=== PATIENT | female | born 1960 | race Caucasian/White ===

== ENCOUNTER 2021-07-07 21:02 | Emergency (ER) | payer OTHER ==
--- OUTSIDE RECORDS SUMMARY | 2021-07-07 21:05 | XMS REPORT | Continuity of Care Document ---
:1960 Author Organization [facility] t Address [facility] [place] [address] Care Team Providers Name Role Phone GC_SEFP_Rivera_A Attending Clinician Unavailable Aston Escobar Attending Clinician [phone] Natan Reynolds Attending Clinician Unavailable Doctor Unassigned, Name Attending Clinician Unavailable Amarilis CORDOVA Attending Clinician Unavailable Tasha FELDMAN, S Attending Clinician Anil BARBOZA Attending Clinician Unavailable Rachel AGUILAR Attending Clinician Unavailable GC_SEFP_Rivera_A Admitting Clinician Unavailable Natan Reynolds Admitting Clinician Unavailable Payers Payer Name Policy Type Policy Number Effective Date Expiration Date S shanika AETNA - CHOICE [id number] 1997 00:00:00 (POS II) AETNA CHOICE POS [id number] 2012 00:00:00 II Problems Condition Condition Condition Status Onset Resolution Last Treating Co mments Source Name Details Category Date Date Treatment Clinician Date Z12.31 - Diagnosis Active 2017-032018-03-01 M emoria ENCNTR 04-25 09:11:00 l SCREEN Z03.29 - 00:01: Brett membreno MAMMOGRAM ENCNTR 00 FOR MA SCREEN MAMMOGRAM FOR MA Active 02/23/2018 Brandie Del oRsario History of Past Illness Condition Condition Condition Status Onset Resolution Last Treating Co mments Source Name Details Category Date Date Treatment Clinician Date Encounter Problem 2017-032018-09-19 2018-09-19 Memoria for 2 11:33:44 11:33:44 l screening 05:55: [place] mammogram Encounter 16 for for malignant screening neoplasm mammogram of breast for malignant neoplasm of breast 03/03/2018 09/19/2018 [facility] Patsy Women's Allergies, Adverse Reactions, Alerts Allergy Allergy Status Severity Reaction(s) Onset Inactive Treating Comm ents Source Name Type Date Date Clinician SULFA DA Active U UNKNOWN 2017-03 [facility] REACTION, 2 [place] [facility] SULFA Drug Active Unknown-Cmnt Univ ers (SULFONA Class 7- ity of [place] 00:00: [place] ANTIBIOT 00 Medical ICS) Branch SULFA DA Active U [facility] 10-28 [place] 00:[facility]: d [facility] Social History Social Habit Start Date Stop Date Quantity Comments Source Social History 2018-03-02 2018-03-02 [facility] 05:59:00 05:59:00 Medications This patient has no known medications. Procedures This patient has no known procedures. Encounters Start End Encounter Admission Attending Care Care Encounter Source Date/Time Date/Time Type Type Clinicians Facility Department ID 2021-01-28 Emergency [facility] [id number] [facility] 2021-06-29 2021-06-29 Outpatient GC_SEFP_Riv PRIV PRIV [id number] [facility] 02:26:00 02:26:00 era_A [id number] Medica l 2021-06-19 2021-06-19 Outpatient GC_SEFP_Riv PRIV PRIV [id number] [facility] 11:44:00 11:44:00 era_A [id number] Medica l 2021-06-19 2021-06-19 Outpatient GC_SEFP_Riv PRIV PRIV [id number] [facility] 11:44:00 11:44:00 era_A [id number] Medica l 2021-03-26 2021-03-26 Outpatient GC_SEFP_Riv PRIV PRIV [id number] [facility] 10:37:00 10:37:00 era_A [id number] Medica l 2021-03-21 2021-03-21 Outpatient GC_SEFP_Riv PRIV PRIV 109 [id number] [facility] 10:56:00 10:56:00 era_A [id number] Medica l 2021-03-21 2021-03-21 Outpatient [place] PRIV PRIV [id number] 00:00:00 00:00:00 , Aston Suero [id number] 2021-03-20 2021-03-20 Outpatient GC_SEFP_Riv PRIV PRIV [id number] [facility] 11:47:00 11:47:00 era_A [id number] Medica l 2020-09-20 2020-09-22 Inpatient SUSIE AshleyMN [facility] [id number] [facility] 12:32:00 17:27:00 Rodrigo 0624 [facility] 2020-08-12 2020-08-12 Outpatient GC_SEFP_Riv PRIV PRIV [id number] [facility] 03:47:00 03:47:00 era_A [id number] Medica l 2020-08-07 2020-08-07 Outpatient GC_SEFP_Riv PRIV PRIV [id number] [facility] 12:57:00 12:57:00 era_A [id number] Medica l 2020-08-06 2020-08-06 Outpatient GC_SEFP_Riv PRIV PRIV [id number] [facility] 05:18:00 05:18:00 era_A [id number] Medica l 2020-08-05 2020-08-05 Outpatient PRIV PRIV [id number] [facility] 01:09:00 01:09:00 [id number] Medica l 2020-08-02 2020-08-02 Outpatient GC_SEFP_Riv PRIV PRIV [id number] [facility] 08:08:00 08:08:00 era_A [id number] Medica l 2020-04-19 2020-04-19 Orders Doctor IZAGUIRRE [id number] 00:00:00 00:00:00 Only Unassigned, NINO 350.1.13.10 [place] [facility] [id number] [id number] 2020-04-11 2020-04-11 Outpatient Nghia CORDOVA [facility] [id number] [facility] 13:45:00 13:45:[id number] [facility] 2020-04-11 2020-04-11 Outpatient R CORDOVA [facility] [id number] Univers 13:45:00 13:45:[address] [facility] 2020-04-11 2020-04-11 [facility] [id number] 13:14:01 13:29:01 Visit [facility] 350.1.13.10 Surgical 4.2.7.2.686 Specialti [id number] es 198 [place] 2020-04-06 2020-04-06 Outpatient R TAMRA [facility] [id number] Univers 12:00:00 12:00:[address] [facility] [id number] [facility] 2020-04-06 2020-04-06 [facility] [id number] Univers 12:00:00 12:00:00 [facility] 2020-04-02 2020-04-02 Outpatient R [facility] [id number] Univers 09:15:00 09:15:[id number] [facility] 2020-04-02 2020-04-02 [facility] [id number] Univers 09:15:00 09:15:00 [facility] 2020-03-27 2020-03-27 Outpatient R [facility] [id number] Univers 11:45:00 11:45:[id number] [facility] 2020-03-27 2020-03-27 [facility] [id number] [facility] 11:45[facility]:45[facility] 2020-03-14 2020-03-14 [facility] [id number] Univers 15:45:00 15:45:[id number] [facility] 2020-03-14 2020-03-14 [facility] [id number] Univers 15:45:00 15:45:[address] [facility] 2020-03-02 2020-03-02 [facility] [id number] Univers 10:45:00 10:45:00 OCHOA isadoramackenzie [facility] 2018-03-01 2018-03-02 Outpt Diag nullFlavo [facility] [id number] Memoria 13:08:00 05:59:00 Services r Outpatient 00 l Eduarda - Brett n Patsy Women's Results Test Description Test Time Test Comments Results Result Comments Source GLUBED 2020-09-22 15:31:00 Test Item Value Reference Range Interpretation Comme nts GLUBED (test code = GLUBED) 97 mg/dL 70-110 N [id number] 15:00:00 Test Item Value Reference Range Interpretation Comments GLUBED (test code = GLUBED) 112 mg/dL 70-110 H [id number] 14:57:00 Test Item Value Reference Range Interpretation Comments GLUBED (test code = GLUBED) 93 mg/dL 70-110 N [id number] 11:30:00 Test Item Value Reference Range Interpretation Comments GLUBED (test code = GLUBED) 87 mg/dL 70-110 N [id number] 07:09:00 Test Item Value Reference Range Interpretation Comments GLUBED (test code = GLUBED) 86 mg/dL 70-110 N UR MICROALBUMIN/CREAT [id number] 05:28:00 Test Item Value Reference Range Interpretation Comments UR CREATININE RESULT (test code 144.07 MG/DL 30-125 H = CREATU) UR MICROALBUMIN QUANT (test code 13.2 mg/L 0-20 N = MICALB) UR MICROALB/CREAT RATIO (test 9.2 mg/g cre <30.0 code = MICALB:CRE) [id number] 14:52:00 Test Item Value Reference Range Interpretation Comments GLUBED (test code = GLUBED) 102 mg/dL 70-110 N [id number] 12:21:00 Test Item Value Reference Range Interpretation Comments GLUBED (test code = GLUBED) 116 mg/dL 70-110 H - US RETRO [id number] 10:05:00 [facility] 1960 Sex: F FAX: Marsha Sullivan MD [phone] [place]: St: [facility] FAX: Aston Guerra [phone] FAX: Flip Johnson MD [phone] FAX: Rodrigo Nuno MD [phone] Name: PAWAN REYES [facility] : 1960 Age/S: 59/F [address] [facility] Unit #: [id number] Loc: [place]: [place] [address] Acct: [id number] Dis Date: Status: ADM IN PHONE #: [phone] Exam Date: 09/21/2020 0900 FAX #: [phone] Meme son: BLOSSOM EXAMS: CPT CODE: [id number] US RETRO LTD [id number]: - US RETRO LTD History: Acute kidney injury Comparison: CT abdomen pelvis from September 20, 2020.. B-mode/Allen scale imaging with color Doppler perfusion imaging and spectral analysis was performed. The right kidney measures 10.7 x 5 x 5.4 cm. Parenchymal thickness found 1.2 cm. No evidence of cyst, shadowing stones or obstruction. Cortical echogenicity pattern maintained. Perfusion pattern appropriate. The left kidney is 11.1 x 5.2 x 5.2 cm also with uniform perfusion on Doppler and uniform parenchymal thickness. No evidence of obstruction. Small parapelvic cyst or dilated lower pole calyx up to 1.9 cm in diameter. The bladder with a volume at 87 mL. Wall thickness upper normal. Left ureteral jet effect seen on color Doppler. The right ureteral jet not identified. No ascites. Impression: No acute abnormality. Uniformperfusion and cortical pattern for the kidneys. Small simple 1.9 cm left lower pole parapelvic cyst or dilated calyceal segment/diverticulum. Location: U 19 Electronically Signed by Zen Farooq MD on 09/21/2020 at 1005 Reported and signed by: Zen Farooq MD CC: Marsha Ramirez MD; Aston Escobar MD; Flip Ferreira MD; Rodrigo Reynolds MD Technologist: ZULEIKA THIBODEAUX Trnscrd Date/Time/By: 09/21/2020 (1005) : By: [email or web address] PAGE 1 Signed Report FAX: Marsha Sullivan MD [phone] [place]: St: ADM FAX: Aston Olvera [phone] FAX: Flip Johnson AMD [phone] FAX: Rodrigo Nuno MD [phone] Name: PAWAN REYES [facility] : 1960 Age/S: 59/F [address] [facility] Unit[facility] [id number] Loc: [place], [place]: [place] [address] Acct: [id number] Dis Date: Status: ADM IN PHONE #: [phone] Exam Date: 09/21/2020 0900 FAX #: [phone] Reason: BLOSSOM EXAMS: CPT CODE: [id number] [facility] [address] <Continued> Orig Print D/T: S: 09/21/2020 (1008) PAGE 2 Signed ReportGLUBED 2020-09-21 08:27:00 Test Item Value Reference Range Interpretation Comments GLUBED (test code = GLUBED) 101 mg/dL 70-110 N COMPREHENSIVE METABOLIC [id number] 07:31:00 Test Item Value Reference Range Interpretation Comments SODIUM (test code = NA) 149 mmol/l 134.0-147.0 H POTASSIUM (test code = K) 3.4 mmol/L 3.6-5.2 L CHLORIDE (test code = CL) 111 mmol/l 98.0-107.0 H CARBON DIOXIDE (test code = CO2) 26.0 mmol/l 21.0-33.0 N ANION GAP (test code = GAP) 15.4 0-20 N GLUCOSE (test code = GLU) 88 mg/dl 70.0-110.0 N BLOOD UREA NITROGEN (test code = 31 mg/dl 7.0-18.0 H BUN) CREATININE (test code = CREAT) 1.14 mg/dL 0.60-1.30 N GFR NON BLACK (test code = 51 mL/min 80-90 L GFRNONBLACK) GFR BLACK (test code = GFRBLACK) 62 mL/min 97-109 L TOTAL PROTEIN (test code = PROT) 6.9 gm/dL 6.4-8.2 N ALBUMIN (test code = ALB) 3.4 gm/dl 3.2-4.7 N CALCIUM (test code = CA) 7.6 mg/dl 8.0-10.5 L BILIRUBIN TOTAL (test code = 0.9 mg/dl 0.0-1.0 N BILT) SGOT/AST (test code = AST) 54 Units/L 15-37 H SGPT/ALT (test code = ALT) 91 Units/L 12.0-78.0 H ALKALINE PHOSPHATASE TOTAL (test 81 Units/L 50.0-136.0 N code = ALKP) [id number] 07:31:00 Test Item Value Reference Range Interpretation Comments LIPASE (test code = LIP) 635 Units/L 65.0-230.0 H CBC W/AUTO [id number] 07:14:00 Test Item Value Reference Range Interpretation Comments WHITE BLOOD CELL (test code = 8.9 K/mm3 4.5-11.0 N WBC) RED BLOOD CELL (test code = 3.77 M/mm3 3.80-5.20 L RBC) HEMOGLOBIN (test code = HGB) 11.5 gm/dL 12.0-16.0 L HEMATOCRIT (test code = HCT) 36.4 % 36.0-48.0 N MEAN CELL VOLUME (test code = 96.6 UM3 82.0-99.0 MCV) MEAN CELL HGB (test code = MCH) 30.5 UUG 25.5-32.5 N MEAN CELL HGB CONCETRATION 31.6 gm/dL 29.0-35.5 N (test code = MCHC) RED CELL DISTRIBUTION WIDTH 13.3 % 11.5-15.0 N (test code = RDW) RED CELL DISTRIBUTION WIDTH SD 47.2 fL 34.8-50.2 N (test code = RDW-SD) PLATELET COUNT (test code = 248 K/mm3 150-400 N PLT) MEAN PLATELET VOLUME (test code 9.6 fl 7.4-10.4 N = MPV) NEUTROPHIL % (test code = NT%) 62.8 % 49.0-76.0 N IMMATURE GRANULOCYTE % (test 0.3 % 0.0-0.4 N code = IG%) LYMPHOCYTE % (test code = LY%) 25.8 % 23.0-38.0 N MONOCYTE % (test code = MO%) 8.8 % 1.0-10.0 N EOSINOPHIL % (test code = EO%) 1.8 % 1.0-5.0 N BASOPHIL % (test code = BA%) 0.5 % 0.0-1.0 N NUCLEATED RBC % (test code = 0.0 % 0.0-0.1 N NRBC%) NEUTROPHIL # (test code = NT#) 5.6 K/mm3 2.4-6.3 N IMMATURE GRANULOCYTE # (test 0.03 x10 3/uL 0.00-0.07 N code = IG#) LYMPHOCYTE # (test code = LY#) 2.3 K/mm3 1.2-4.0 N MONOCYTE # (test code = MO#) 0.8 K/mm3 0.0-0.6 H EOSINOPHIL # (test code = EO#) 0.2 K/MM3 0.0-0.7 N BASOPHIL # (test code = BA#) 0.0 K/mm3 0.0-0.2 N NUCLEATED RBC # (test code = 0.00 X10 3uL 0.00-0.01 N NRBC#) [id number] 22:16:00 Test Item Value Reference Range Interpretation Comments GLUBED (test code = GLUBED) 101 mg/dL 70-110 N - CT ABD PELVIS W/O [id number] 10:46:00 [facility] : 1960 Sex: F FAX: Aston Olvera [phone] [place]: St: [facility] FAX: Yocasta Colon MD [phone] FAX: Flip Johnson MD [phone] Name: PAWAN REYES [facility] : 1960 Age/S: 59/F [address] [facility] Unit: [id number] Loc: E.ERS2 [place], [place]: [place] [address] Acct: [id number] Dis Date: Status: REG ER PHONE #: [phone] Exam Date: 09/20/2020 1040 FAX #: [phone] Reason: s/p gastric bypass september 08 with n/v/pain EXAMS: CPT CODE: [id number] CT ABD PELVIS W/O CONT [id number] EXAM: - CT ABD PELVIS W/O CONT HISTORY: s/p gastric bypass September 08 with n/v/pain Location code:C3 TECHNIQUE: Contrast - No IV contrast was given. Enteric contrast within the distal esophagus/gastric pouch is noted. Noncontrast phase - abdomen and pelvis including all of kidneys Reconstructions - coronal and sagittal planes Automated exposure reduction (Auto mA/Smart mA) was utilized in compliance with ACR Image Wisely with DLP of 1165 mGy-cm. COMPARISON:None FINDINGS: Statements: Lack of intravenous contrast compromises evaluation of abdominopelvic organs and vasculature. Enteric contrast within the gastric pouch is present. Thoracic: Included images of the lower chest demonstrate no abnormalities. Hepatobiliary: The liver is normal without focal lesion. 4 No biliary dilation. Pancreas: Normal. Spleen: Normal. Adrenals: Normal. Genitourinary: The kidneys are normal. There is no evidence of hydronephrosis of either kidney. There is no evidence of renal calculus. Evaluation of the bladder is limited, but no obvious bladder abnormality is present. Uterus appears surgically absent. Gastrointestinal: Surgical changes of the stomach are present. There is no surrounding inflammatorychange or fluid collection. No bowel obstruction is seen. No extraluminal contrast from the distal esophagus/fundus of the stomach is seen. Distal stomach and proximal PAGE 1 Signed Report (CONTINUED) FAX: Aston Olvera [phone] [place]: St: [facility] FAX: Yocasta Gonzalez MD [phone] FAX: Flip Johnson MD [phone] Name: PAWAN REYES [facility] : 1960Age/S: 59/ [address] [facility] Unit: [id number] Loc: E.ERS2 [place], [place]: [place] [address] Acct: [id number] Dis Date: Status: REG ER PHONE #: [phone] Exam Date: 09/20/2020 1040 FAX #: [phone] Reason:s/p gastric bypass september 08 with n/v/pain EXAMS: CPT CODE: [id number] CT ABD PELVIS W/O CONT [id number] <Continued> small bowel loops are not opacified with contrast. The appendix is normal. Vascular: Atherosclerotic calcifications are seen within the aorta and branch vessels. Lymphatics: No enlarged lymph nodes by CT size criteria. Bones/SoftTissues: Remote 10% compression fracture at T11-12 is present. 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 There is no acute osseous abnormality. No ventral hernias. Peritoneum/Other: No extraluminal air. No extraluminal fluid. IMPRESSION: 1. Surgical changes of the stomach are seen with no extraluminal contrast, surrounding inflammatory change, drainable collection, or bowel obstruction. 2. Other chronic changes as above. at 1046 Reported and signed by: Ricardo Anglin M.D. CC: Aston Escobar MD; Yocasta Gonzalez MD; Flip Ferreira MD Technologist: DEZ CARLISLE Trnscrd Dt/Tm: 09/20/2020 (2306) [email or web address] Orig Print D/T: S: 09/20/2020 (1966 PAGE 2 Signed ReportURINALYSIS [id number] 10:13:00 Test Item Value Reference Range Interpretation Comments UA COLOR (test code = YELLOW COLU) UA APPEARANCE (test HAZY code = APPU) UA GLUCOSE DIPSTICK NORMAL mg/dl NORMAL (test code = DGLUU) UA BILIRUBIN DIPSTICK 1 mg/dL mg/dL NEGATIVE A (test code = BILU) UA KETONE DIPSTICK 50 mg/dl mg/dl NEGATIVE A (test code = KETU) UA SPECIFIC GRAVITY 1.025 1.000-1.030 (test code = SGU) UA BLOOD DIPSTICK 10 Emerson/micL NEGATIVE A (test code = EMANI) Emerson/micL UA PH DIPSTICK (test 5.0 5.0-9.0 code = GENA) UA PROTEIN DIPSTICK 100 mg/dl NEGATIVE A (test code = PROU) UA UROBILINIOGEN NORMAL mg/dl NORMAL DIPSTICK (test code = URO) UA NITRITE DIPSTICK NEGATIVE NEGATIVE (test code = ADRIÁN) UA LEUKOCYTE ESTERASE 25 Breanna/micL NEGATIVE A DIPSTICK (test code = Breanna/micL LEUU) UA WBC (test code = 4-9 WBC/HPF NONE A WBCU) UA RBC (test code = 1-3 RBC/HPF 0-3 RBCU) UA EPITHELIAL CELLS 2-5 EPI/HPF 0-3 A (test code = EPIU) UA BACTERIA (test FEW NONE code = BACU) UA CASTS OTHER (test WBC /LPF See_Comment 0-1/LPF [Automated code = CASTU) message] The system which generated this result transmit allan reference range : 0-1/LPF. The reference range was not used to interpret this result as normal/abnormal . UA COARSE GRANULAR 0-1 /LPF NEGATIVE CAST (test code = CGU) Specimen comments: Clean CatchURINALYSIS [id number] 10:11:00 Test Item Value Reference Range Interpretation Comments UA COLOR (test code = YELLOW COLU) UA APPEARANCE (test code HAZY = APPU) UA GLUCOSE DIPSTICK (test NORMAL mg/dl NORMAL code = DGLUU) UA BILIRUBIN DIPSTICK 1 mg/dL mg/dL NEGATIVE A (test code = BILU) UA KETONE DIPSTICK (test 50 mg/dl mg/dl NEGATIVE A code = KETU) UA SPECIFIC GRAVITY (test 1.025 1.000-1.030 code = SGU) UA BLOOD DIPSTICK (test 10 Emerson/micL Emerson/micL NEGATIVE A code = EMANI) UA PH DIPSTICK (test code 5.0 5.0-9.0 = GENA) UA PROTEIN DIPSTICK (test 100 mg/dl NEGATIVE A code = PROU) UA UROBILINIOGEN DIPSTICK NORMAL mg/dl NORMAL (test code = URO) UA NITRITE DIPSTICK (test NEGATIVE NEGATIVE code = ADRIÁN) UA LEUKOCYTE ESTERASE 25 Breanna/micL Breanna/micL NEGATIVE A DIPSTICK (test code = LEUU) UA WBC (test code = WBCU) WBC/HPF NONE UA RBC (test code = RBCU) RBC/HPF 0-3 UA EPITHELIAL CELLS (test EPI/HPF 0-3 code = EPIU) UA BACTERIA (test code = NONE BACU) Specimen comments: Clean [id number] 10:11:00 Test Item Value Reference Range Interpretation Comments TROPONIN-I (test <0.02 NG/ML 0.00-0.06 N REFERENCE R INOCENCIO code = TROPI) TROPONIN I HEA LTHY INDIVIDUALS: < 0.06 ng/mL R/O ISCHE TROY: 0.07 - 0.60 ng/ mL CUT-OFF RANGE F OR AMI: 0.60 - 1.5 ng/m L BASIC METABOLIC [id number] 10:11:00 Test Item Value Reference Range Interpretation Comments SODIUM (test code = NA) 144 mmol/l 134.0-147.0 N POTASSIUM (test code = K) 3.3 mmol/L 3.6-5.2 L CHLORIDE (test code = CL) 104 mmol/l 98.0-107.0 N CARBON DIOXIDE (test code = CO2) 23.3 mmol/l 21.0-33.0 N ANION GAP (test code = GAP) 20.0 0-20 N GLUCOSE (test code = GLU) 131 mg/dl 70.0-110.0 H BLOOD UREA NITROGEN (test code = 50 mg/dl 7.0-18.0 H BUN) CREATININE (test code = CREAT) 2.31 mg/dL 0.60-1.30 H GFR NON BLACK (test code = 23 mL/min 80-90 L GFRNONBLACK) GFR BLACK (test code = GFRBLACK) 28 mL/min 97-109 L CALCIUM (test code = CA) 9.0 mg/dl 8.0-10.5 N HEPATIC FUNCTION PANEL [id number] 10:11:00 Test Item Value Reference Range Interpretation Comments TOTAL PROTEIN (test code = PROT) 8.5 gm/dL 6.4-8.2 H ALBUMIN (test code = ALB) 4.3 gm/dl 3.2-4.7 N BILIRUBIN TOTAL (test code = 0.8 mg/dl 0.0-1.0 N BILT) BILIRUBIN DIRECT (test code = 0.2 mg/dl 0.0-0.3 N BILD) SGOT/AST (test code = AST) 55 Units/L 15-37 H SGPT/ALT (test code = ALT) 99 Units/L 12.0-78.0 H ALKALINE PHOSPHATASE TOTAL (test 101 Units/L 50.0-136.0 N code = ALKP) [id number] 10:11:00 Test Item Value Reference Range Interpretation Comments LIPASE (test code = LIP) 621 Units/L 65.0-230.0 H CBC W/AUTO [id number] 09:44:00 Test Item Value Reference Range Interpretation Comments WHITE BLOOD CELL (test code = 11.8 K/mm3 4.5-11.0 H WBC) RED BLOOD CELL (test code = 4.40 M/mm3 3.80-5.20 N RBC) HEMOGLOBIN (test code = HGB) 13.5 gm/dL 12.0-16.0 N HEMATOCRIT (test code = HCT) 40.9 % 36.0-48.0 N MEAN CELL VOLUME (test code = 93.0 UM3 82.0-99.0 N MCV) MEAN CELL HGB (test code = MCH) 30.7 UUG 25.5-32.5 N MEAN CELL HGB CONCETRATION 33.0 gm/dL 29.0-35.5 N (test code = MCHC) RED CELL DISTRIBUTION WIDTH 13.2 % 11.5-15.0 N (test code = RDW) RED CELL DISTRIBUTION WIDTH SD 45.0 fL 34.8-50.2 N (test code = RDW-SD) PLATELET COUNT (test code = 333 K/mm3 150-400 N PLT) MEAN PLATELET VOLUME (test code 9.3 fl 7.4-10.4 N = MPV) NEUTROPHIL % (test code = NT%) 79.4 % 49.0-76.0 H IMMATURE GRANULOCYTE % (test 0.4 % 0.0-0.4 N code = IG%) LYMPHOCYTE % (test code = LY%) 13.7 % 23.0-38.0 L MONOCYTE % (test code = MO%) 5.2 % 1.0-10.0 N EOSINOPHIL % (test code = EO%) 0.6 % 1.0-5.0 L BASOPHIL % (test code = BA%) 0.7 % 0.0-1.0 N NUCLEATED RBC % (test code = 0.0 % 0.0-0.1 N NRBC%) NEUTROPHIL # (test code = NT#) 9.4 K/mm3 2.4-6.3 H IMMATURE GRANULOCYTE # (test 0.05 x10 3/uL 0.00-0.07 N code = IG#) LYMPHOCYTE # (test code = LY#) 1.6 K/mm3 1.2-4.0 N MONOCYTE # (test code = MO#) 0.6 K/mm3 0.0-0.6 N EOSINOPHIL # (test code = EO#) 0.1 K/MM3 0.0-0.7 N BASOPHIL # (test code = BA#) 0.1 K/mm3 0.0-0.2 N NUCLEATED RBC # (test code = 0.00 X10 3uL 0.00-0.01 N NRBC#)
--- NOTE | 2021-07-07 22:29 | RAD REPORT ---
EXAM DESCRIPTION: CT - Head Brain Wo Cont - 07/07/2021 10:20 pm CLINICAL HISTORY: PAIN COMPARISON: No comparisons TECHNIQUE: All CT scans are performed using dose optimization technique as appropriate and may inclu de automated exposure control or mA/KV adjustment according to patient size. FINDINGS: No intracranial hemorrhage, hydrocephalus or extra-axial fluid collection.No areas of brai n edema or evidence of midline shift. The paranasal sinuses and mastoids are clear. The calvarium is intact. IMPRESSION: No acute intracranial abnormality.
--- NOTE | 2021-07-07 22:30 | RAD REPORT ---
EXAM DESCRIPTION: CT - C Spine Wo Con - 07/07/2021 10:20 pm CLINICAL HISTORY: PAIN COMPARISON: No comparisons TECHNIQUE: CT Scan was obtained of the cervical spine without contrast. Reformats were provided in t he sagittal and coronal plane. FINDINGS: No acute fracture of the cervical spine. Trace anterolisthesis of C2 on C3 is likely chron ic. No traumatic malalignment. No prevertebral edema. No significant focal degenerative changes. No s uspicious thyroid nodules or lymphadenopathy. The lung apices are clear. Status post C5 through C7 AC DF. Moderate adjacent level degenerative changes are present at C7-T1. There is evidence of neural fo raminal narrowing. IMPRESSION: No fracture or traumatic malalignment of the cervical spine.
--- NOTE | 2021-07-07 22:45 | EDPHYS ---
Physician Documentation [facility] Name: Jia Ellis Age: 60 yrs Sex: Female : 1960 Arrival Date: 07/07/2021 Time: 21:06 Bed 3 Private MD: ED Physician Reddy Loaiza HPI: 07/07 22:19 This 60 yrs old Female presents to ER via Wheelchair with complaints of Fall Injury. pm1 22:19 Details of fall: The patient fell from an upright position, while standing. pm1 22:19 Onset: The symptoms/episode began/occurred today. Associated injuries: The patient pm1 sustained neck injury, right scapular area. Severity of symptoms:. The patient has not experienced similar symptoms in the past. The patient has not recently seen a physician. Patient tripped on a heat lamp while feeding her animals and she feel backwards and hit her right shoulder on a water through with abrasion present to scapular area. Negative for headache, Head injury, LOC. Positive for neck pain and right trapezius pain. . Historical: - Allergies: 21:13 Sulfa (Sulfonamide Antibiotics); lp1 - Home Meds: 22:47 Unable to obtain [Active]; lp1 - PMHx: 22:47 Depressive disorder; Hypercholesterolemia; lp1 - PSHx: 22:47 Partial hysterectomy; Cholecystectomy; carpel tunnel; neck sx; achilles sx; gastric lp1 bypass; - Immunization history:: Adult Immunizations unknown. - Social history:: Smoking status: Patient denies any tobacco usage or history of. - Immunization history: Last tetanus immunization: unknown. ROS: 22:19 Constitutional: Negative for fever, chills, and weight loss, Cardiovascular: Negative pm1 for chest pain, palpitations, and edema. 22:19 Respiratory: Negative for shortness of breath, cough, wheezing, and pleuritic chest pain, Abdomen/GI: Negative for abdominal pain, nausea, vomiting, diarrhea, and constipation, Back: Negative for injury and pain. 22:19 Neuro: Negative for headache, weakness, numbness, tingling, and seizure. 22:19 Neck: Positive for bony tenderness, of the right trapezius. 22:19 MS/extremity: Positive for abrasion, pain, of the right scapular area. 22:19 Skin: Positive for abrasion(s), of the right scapular area. 22:19 All other systems are negative. Exam: 22:19 Constitutional: This is a well developed, well nourished patient who is awake, alert, pm1 and in no acute distress. Head/Face: Normocephalic, atraumatic. 22:19 Neck: External neck: tenderness, that is moderate, of the right trapezius, C-spine: C-collar placed in ED, vertebral tenderness, that is mild, appreciated at C5, C6 and C7. 22:19 Cardiovascular: Exam negative for acute changes, Rate: normal, Rhythm: regular, Pulses: no pulse deficits are appreciated. 22:19 Respiratory: Exam negative for acute changes, respiratory distress, shortness of breath, Breath sounds: are clear throughout. 22:19 Back: pain, that is mild, of the right scapular area. 22:19 Musculoskeletal/extremity: Exam is negative for Extremities: noted in the right shoulder and right arm: There is no evidence of decreased ROM, Patient is able to move her shoulder and arm full range of motion. 22:19 Skin: injury, abrasion(s), small abrasion noted, of the right scapular area. 22:19 Neuro: Exam negative for acute changes, Orientation: is normal, Mentation: is normal, Motor: is normal, moves all fours. Vital Signs: 21:13 BP 172 / 64; Pulse 64; Resp 18; Temp 97.4(TE); Pulse Ox 97% on R/A; Weight 92.99 kg lp1 (R); Height 5 ft. 7 in. (170.18 cm); 22:30 BP 137 / 69; Pulse 57; Resp 20 S; Pulse Ox 97% on R/A; as6 21:13 Body Mass Index 32.11 (92.99 kg, 170.18 cm) lp1 [place] Coma Score: 21:23 Eye Response: spontaneous(4). Verbal Response: oriented(5). Motor Response: obeys as6 commands(6). Total: 15. 22:30 Eye Response: spontaneous(4). Verbal Response: oriented(5). Motor Response: obeys as6 commands(6). Total: 15. Trauma Score (Adult): 21:23 Eye Response: spontaneous(1); Verbal Response: oriented(1); Motor Response: obeys as6 commands(2); Systolic BP: > 89 mm Hg(4); Respiratory Rate: 10 to 29 per min(4); [place] Score: 15; Trauma Score: 12 22:30 Eye Response: spontaneous(1); Verbal Response: oriented(1); Motor Response: obeys as6 commands(2); Systolic BP: > 89 mm Hg(4); Respiratory Rate: 10 to 29 per min(4); [place] Score: 15; Trauma Score: 12 MDM: 21:39 Patient medically screened. pm1 22:42 Data reviewed: vital signs. Data interpreted: Pulse oximetry: on room air is 97 %. pm1 Interpretation: normal. 22:43 Counseling: I had a detailed discussion with the patient and/or guardian regarding: the pm1 historical points, exam findings, and any diagnostic results supporting the discharge/admit diagnosis, radiology results, the need for outpatient follow up, to return to the emergency department if symptoms worsen or persist or if there are any questions or concerns that arise at home. 22:56 ED course: Patient has hydrocodone at home for pain management. pm1 07/07 21:43 Order name: Shoulder Right (2 View) XRAY pm1 07/07 22:01 Order name: C Spine Wo Con; Complete Time: 22:41 EDMS 07/07 22:02 Order name: Head Brain Wo Cont; Complete Time: 22:41 EDMS Administered Medications: 23:02 Drug: [place] (HYDROcodone-acetaminophen) 10 mg-325 mg 1 tabs Route: PO; as6 23:11 Follow up: Response: No adverse reaction; RASS: Alert and Calm (0) as6 23:02 Drug: Flexeril (cyclobenzaprine) 10 mg Route: PO; as6 23:10 Follow up: Response: No adverse reaction as6 Disposition: 07/08 03:36 Co-signature as Attending Physician, Reddy Loaiza MD. [email or web address] Disposition Summary: 07/07/21 22:44 Discharge Ordered Location: Home pm1 Problem: new pm1 Symptoms: have improved pm1 Condition: Stable pm1 Diagnosis - Contusion of right shoulder pm1 - Strain of muscle, fascia and tendon at neck level pm1 - Fall on same level, unspecified pm1 Followup: pm1 - With: Emergency Department - When: As needed - Reason: Worsening of condition Followup: pm1 - With: Private Physician - When: 2 - 3 days - Reason: Recheck today's complaints, Continuance of care, Re-evaluation by your physician Discharge Instructions: - Discharge Summary Sheet pm1 - Contusion pm1 - Muscle Strain pm1 Forms: - Medication Reconciliation Form pm1 - Thank You Letter pm1 - Antibiotic Education pm1 - Prescription Opioid Use pm1 Prescriptions: - Cyclobenzaprine 10 mg Oral Tablet - take 1 tablet by ORAL route every 8 hours As needed; 30 tablet; Refills: 0, pm1 Product Selection Permitted Signatures: Dispatcher [employer] EDMS Guerda Sweeney RN RN lp1 Ortega Loyd, ROCKET ENGINE MECHANIC ROCKET ENGINE MECHANIC pm1 Reddy Loaiza MD MD mh7 Lionel Hutson RN RN as6 Corrections: (The following items were deleted from the chart) 07/07 22:02 21:44 Head C Spine MPR Wo Con+CT.RAD.BRZ ordered. EDMS EDMS
--- NOTE | 2021-07-07 22:45 | ER ---
Nurse's Notes [facility] Name: Jia Ellis Age: 60 yrs Sex: Female : 1960 Arrival Date: 07/07/2021 Time: 21:06 Bed 3 Private MD: Diagnosis: Contusion of right shoulder;Strain of muscle, fascia and tendon at neck level;Fall on same level, unspecified Presentation: 07/07 21:12 Chief complaint: Patient states: Patient was outside feeding duck when she tripped over lp1 heat lamp, hit right shoulder on water trough, reports neck "whiplash"; Pain to neck, upper back, bilateral posterior shoulders. Care prior to arrival: None. Mechanism of Injury: Fall from standing position. 21:12 Acuity: LUISITO 2 lp1 21:12 Method Of Arrival: Wheelchair lp1 21:24 Coronavirus screen: At this time, the client does not indicate any symptoms associated as6 with coronavirus-19. Ebola Screen: No symptoms or risks identified at this time. Initial Sepsis Screen: Does the patient meet any 2 criteria? No. Patient's initial sepsis screen is negative. Does the patient have a suspected source of infection? No. Patient's initial sepsis screen is negative. Risk Assessment: Do you want to hurt yourself or someone else? Patient reports no desire to harm self or others. Onset of symptoms was July 07, 2021. 23:10 Trauma event details: Injury occurred in the [facility], Injury occurred: at as6 home. Trauma Activation: Not Applicable Physician: ED Physician; Name: ; Notified At: ; Arrived At: Physician: General Surgeon; Name: ; Notified At: ; Arrived At: Physician: Radiology; Name: ; Notified At: ; Arrived At: Physician: Respiratory; Name: ; Notified At: ; Arrived At: Physician: Lab; Name: ; Notified At: ; Arrived At: Historical: - Allergies: 21:13 Sulfa (Sulfonamide Antibiotics); lp1 - Home Meds: 22:47 Unable to obtain [Active]; lp1 - PMHx: 22:47 Depressive disorder; Hypercholesterolemia; lp1 - PSHx: 22:47 Partial hysterectomy; Cholecystectomy; carpel tunnel; neck sx; achilles sx; gastric lp1 bypass; - Immunization history:: Adult Immunizations unknown. - Social history:: Smoking status: Patient denies any tobacco usage or history of. - Immunization history: Last tetanus immunization: unknown. Screenin:23 Abuse screen: Denies threats or abuse. Denies injuries from another. Nutritional as6 screening: No deficits noted. Tuberculosis screening: No symptoms or risk factors identified. Fall Risk Fall in past 12 months (25 points). Total Baker Fall Scale indicates Low Risk Score (25-44 pts). Fall prevention measures have been instituted. Side Rails Up X 2 Family Present and informed to notify staff if they need to leave bedside As available Patient and Family Educated on Fall Prevention Program and strategies. Primary Survey: 21:22 NO uncontrolled hemorrhage observed. A: The patient is alert. Airway: patent. as6 Breathing/Chest: Respiratory pattern: regular, Respiratory effort: spontaneous. Circulation: Skin color: pink, Skin temperature: warm. Disability Alert. Exposure/Environment: All clothing and personal items were removed. Forensic evidence collection is not deemed to be indicated at this time. Items placed in patient belonging bag. A warming method has been applied: A warm blanket has been provided to the patient. Reassessment Airway Airway Patent Breathing/Chest Respiratory pattern Respiratory effort Spontaneous Circulation Color [place] Temperature Warm Disability Alert. Secondary Survey: 21:23 Musculoskeletal: Reports pain in back and thoracic area and right scapular area and as6 left scapular area and right trapezius and left trapezius. Assessment: 21:21 General: Appears in no apparent distress. uncomfortable, Behavior is calm, cooperative. as6 Pain: Complains of pain in left trapezius, right trapezius, left scapular area, right scapular area and thoracic area Quality of pain is described as numb. Neuro: Level of Consciousness is awake, alert, obeys commands, Oriented to person, place, time, situation. Cardiovascular: Capillary refill < 3 seconds Patient's skin is warm and dry. Respiratory: Airway is patent Trachea midline Respiratory effort is even, unlabored, Respiratory pattern is regular, symmetrical. Vital Signs: 21:13 BP 172 / 64; Pulse 64; Resp 18; Temp 97.4(TE); Pulse Ox 97% on R/A; Weight 92.99 kg lp1 (R); Height 5 ft. 7 in. (170.18 cm); 22:30 BP 137 / 69; Pulse 57; Resp 20 S; Pulse Ox 97% on R/A; as6 21:13 Body Mass Index 32.11 (92.99 kg, 170.18 cm) lp1 [place] Coma Score: 21:23 Eye Response: spontaneous(4). Verbal Response: oriented(5). Motor Response: obeys as6 commands(6). Total: 15. 22:30 Eye Response: spontaneous(4). Verbal Response: oriented(5). Motor Response: obeys as6 commands(6). Total: 15. Trauma Score (Adult): 21:23 Eye Response: spontaneous(1); Verbal Response: oriented(1); Motor Response: obeys as6 commands(2); Systolic BP: > 89 mm Hg(4); Respiratory Rate: 10 to 29 per min(4); [place] Score: 15; Trauma Score: 12 22:30 Eye Response: spontaneous(1); Verbal Response: oriented(1); Motor Response: obeys as6 commands(2); Systolic BP: > 89 mm Hg(4); Respiratory Rate: 10 to 29 per min(4); [place] Score: 15; Trauma Score: 12 ED Course: 21:06 Patient arrived in ED. lp1 21:13 Triage completed. lp1 21:14 Arm band placed on. lp1 21:15 Lionel Hutson RN is Primary Nurse. as6 21:24 Patient maintains SpO2 saturation greater than 95% on room air. Thermoregulation: warm as6 blanket given to patient. 21:25 Ortega Loyd NP is PHCP. pm1 21:25 Reddy Loaiaz MD is Attending Physician. pm1 22:00 Placed in gown. Bed in low position. Call light in reach. Side rails up X2. Adult w/ as6 patient. Pulse ox on. NIBP on. 22:21 C Spine Wo Con In Process Unspecified. EDMS 22:21 Head Brain Wo Cont In Process Unspecified. EDMS 22:32 Shoulder Right (2 View) XRAY In Process Unspecified. EDMS 23:09 No provider procedures requiring assistance completed. Patient did not have IV access as6 during this emergency room visit. Administered Medications: 23:02 Drug: [place] (HYDROcodone-acetaminophen) 10 mg-325 mg 1 tabs Route: PO; as6 23:11 Follow up: Response: No adverse reaction; RASS: Alert and Calm (0) as6 23:02 Drug: Flexeril (cyclobenzaprine) 10 mg Route: PO; as6 23:10 Follow up: Response: No adverse reaction as6 Intake: 21:23 PO: 0ml; Total: 0ml. as6 Outcome: 22:44 Discharge ordered by . pm1 23:09 Discharged to home via wheelchair, with significant other. as6 23:09 Condition: stable 23:09 Discharge instructions given to patient, significant other, Instructed on discharge instructions, follow up and referral plans. medication usage, Demonstrated understanding of instructions, follow-up care, medications, Prescriptions given X 1. 23:10 Patient's length of stay was not longer than 2 hours. as6 23:11 Patient left the ED. as6 Signatures: Dispatcher [employer] EDGuerda Abbasi, DAVID RN lp1 Ortega Loyd NP SCHEME TECHNICIAN pm1 Lionel Hutson RN RN as6
[2021-07-07] MEDS ORDERED: HYDROCODONE/APAP 10/325 TAB ONE ×2 (22:55→22:57)
[2021-07-07] MEDS ORDERED: CYCLOBENZAPRINE 10 MG TAB ONE (23:00)
[2021-07-08 03:03] VITALS: TEMP 97.4; O2SAT 97
[2021-07-08 03:04] VITALS: BP 137/69
--- NOTE | 2021-07-08 15:51 | RAD REPORT ---
EXAM DESCRIPTION: Shoulder Right 2 View - 07/07/2021 10:30 pm CLINICAL HISTORY: 60-year-old female with pain. TECHNIQUE: Three views RIGHT shoulder were obtained in AP, internal/external rotation and transcapul ar projections. COMPARISON: None. FINDINGS: There is no fracture or dislocation. Degenerative change of the acromioclavicular and richie ohumeral joint. The joint spaces are preserved. No soft tissue abnormalities are seen. Anterior cervi pia fusion hardware. IMPRESSION: No acute radiographic abnormality. Electronically signed by: Marla Castillo MD 07/07/2021 10:49 PM CDT Due to temporary technical issues with the PACS/Fluency reporting system, reports are being signed by the in house radiologist without review as a courtesy to ensure prompt reporting. The interpreting r adiologist is fully responsible for the content of the report.
== END 2021-07-07 23:11 | disposition home or self-care (01) ==
LOC: ER 21:02
DX: S16.1XXA Strain of muscle, fascia and tendon at neck level, initial encounter (principal); S40.011A Contusion of right shoulder, initial encounter; W18.30XA Fall on same level, unspecified, initial encounter; E78.00 Pure hypercholesterolemia, unspecified; F32.A Depression, unspecified; Z88.2 Allergy status to sulfonamides
CPT/HCPCS: 70450; 72125; 99284

== ENCOUNTER 2021-07-15 10:24 | Emergency (ER) | payer OTHER ==
--- OUTSIDE RECORDS SUMMARY | 2021-07-15 10:28 | XMS REPORT | Continuity of Care Document ---
:[address] [facility] t Address [address] [place] [address] [address]. [address] [place] [address] Care Team Providers Name Role Phone GC_SEFP_Levon_A Attending Clinician Unavailable Pio Escobar Attending Clinician [phone] Natan Reynolds Attending Clinician Unavailable Doctor Unassigned, Name Attending Clinician Unavailable Amarilis CORDOVA Attending Clinician Unavailable Berry FELDMAN, S Attending Clinician Anil BARBOZA Attending Clinician Unavailable Rachel AGUILAR Attending Clinician Unavailable AMAIRANI_PAYTON_Levon_A Admitting Clinician Unavailable Natan Reynolds Admitting Clinician Unavailable Payers Payer Name Policy Type Policy Number Effective Date Expiration Date Amarilis voss [employer]ET[employer] - CHOICE [id number] 1997 00:00:00 (POS II) AETNA CHOICE POS [id number] 2012 00:00:00 II Problems This patient has no known problems. Allergies, Adverse Reactions, Alerts Allergy Allergy Status Severity Reaction(s) Onset Inactive Treating Comm ents Source Name Type Date Date Clinician SULFA DA Active U UNKNOWN 2017-03 [facility] RE[facility], 2-17 [facility] SULFA Drug Active Unknown-[facility]nt Univ ers (SULFONA Class 7-06 ity of M[facility] 00:00: [place] ANTIBIOT 00 [facility] I[facility]) Branch SULFA DA Active U 2007- [facility] 8- [facility] 00:[facility]: d [facility] Medications This patient has no known medications. Procedures This patient has no known procedures. Encounters Start End Encounter Admission Attending Care Care Encounter Source Date/Time Date/Time Type Type Clinicians Facility Department ID 2021-01-28 Emergency [facility] [id number] Univers 14:37:00 [facility] 2021-07-08 2021-07-08 Outpatient GC_SEFP_Riv PRIV PRIV [id number] [facility] 12:44:00 12:44:00 era_A [id number] Medica l 2021-06-29 2021-06-29 Outpatient GC_SEFP_Riv PRIV PRIV [id number] [facility] 02:26:00 02:26:00 era_A [id number] Medica l 2021-06-19 2021-06-19 Outpatient GC_SEFP_Riv PRIV PRIV [id number] [facility] 11:44:00 11:44:00 era_A [id number] Medica l 2021-06-19 2021-06-19 Outpatient GC_SEFP_Riv PRIV PRIV [id number] [facility] 11:44:00 11:44:00 era_A [id number] Medica l 2021-06-19 2021-06-19 Outpatient [facility] PRIV PRIV [id number] 00:00:00 00:00:00 , Aston Suero [id number] 2021-03-26 2021-03-26 Outpatient GC_SEFP_Riv PRIV PRIV [id number] [facility] 10:37:00 10:37:00 era_A [id number] Medica l 2021-03-21 2021-03-21 Outpatient GC_SEFP_Riv PRIV PRIV [id number] [facility] 10:56:00 10:56:00 era_A [id number] Medica l 2021-03-21 2021-03-21 Outpatient [facility] PRIV PRIV [id number] 00:00:00 00:00:00 , Aston Suero [id number] 2021-03-20 2021-03-20 Outpatient GC_SEFP_Riv PRIV PRIV [id number] [facility] 11:47:00 11:47:00 era_A [id number] Medica l 2020-09-20 2020-09-22 [id number] 12:32:00 17:27:00 Rodrigo 0624 [facility] 2020-08-12 2020-08-12 Outpatient GC_SEFP_Riv PRIV PRIV [id number] [facility] 03:47:00 03:47:00 era_A [id number] Medica l 2020-08-07 2020-08-07 Outpatient GC_SEFP_Riv PRIV PRIV [id number] [facility] 12:57:00 12:57:00 era_A [id number] Medica l 2020-08-06 2020-08-06 Outpatient GC_SEFP_Riv PRIV PRIV [id number] [facility] 05:18:00 05:18:00 era_A [id number] Medica l 2020-08-05 2020-08-05 Outpatient PRIV PRIV [id number] [facility] 01:09:00 01:09:00 [id number] Medica l 2020-08-02 2020-08-02 Outpatient GC_SEFP_Riv PRIV PRIV [id number] [facility] 08:08:00 08:08:00 era_A [id number] Medica l 2020-04-19 2020-04-19 Orders Doctor DMITRIY [id number] 00:00:00 00:00:00 Only Unassigned, PEVELY [id number] [facility] [id number] 2020-04-11 2020-04-11 Outpatient Nghia CORDOVA [facility] [id number] Univers 13:45:00 13:45:00 OCHOA [id number] [facility] 2020-04-11 2020-04-11 Outpatient Nghia CORDOVA [facility] [id number] [facility] 13:45:00 13:45:00 OCHOA [facility] 2020-04-11 2020-04-11 Office Berry [facility] [id number] 13:14:01 13:29:01 Visit [facility] [id number] Surgical 4.2.7.2.686 Specialti [id number] es 198 Elisa 2020-04-06 2020-04-06 Outpatient R TAMRA [facility] [id number] Univers 12:00:00 12:00:00 [facility] [id number] [facility] 2020-04-06 2020-04-06 Outpatient R TAMRA [facility] [id number] Univers 12:00:00 12:00:00 [facility] 2020-04-02 2020-04-02 Outpatient R [facility] [id number] Univers 09:15:00 09:15:00 [id number] [facility] 2020-04-02 2020-04-02 Outpatient R TAMRA [facility] [id number] Univers 09:15:00 09:15:00 [facility] 2020-03-27 2020-03-27 Outpatient R [facility] [id number] Univers 11:45:00 11:45:00 [id number] [facility] 2020-03-27 2020-03-27 [facility] [id number] Univers 11:45:00 11:45:00 [facility] 2020-03-14 2020-03-14 [facility] [id number] Univers 15:45:00 15:45:00 ELGIN [id number] [facility] 2020-03-14 2020-03-14 [facility] [id number] Univers 15:45:00 15:45:00 [facility] 2020-03-02 2020-03-02 Outpatient R CORDOVA [facility] [id number] Univers 10:45:00 10:45:00 OCHOA [facility] Results Test Description Test Time Test Comments Results Result Comments Source GLUBED 2020-09-22 15:31:00 Test Item Value Reference Range Interpretation Comme nts GLUBED (test code = GLUBED) 97 mg/dL 70-110 N [id number] 15:00:00 Test Item Value Reference Range Interpretation Comments GLUBED (test code = GLUBED) 112 mg/dL 70-110 H [id number] 14:57:00 Test Item Value Reference Range Interpretation Comments GLUBED (test code = GLUBED) 93 mg/dL 70-110 N [id number] 11:30:00 Test Item Value Reference Range Interpretation Comments GLUBED (test code = GLUBED) 87 mg/dL 70-110 N [id number] 07:09:00 Test Item Value Reference Range Interpretation Comments GLUBED (test code = GLUBED) 86 mg/dL 70-110 N UR MICROALBUMIN/CREAT [id number] 05:28:00 Test Item Value Reference Range Interpretation Comments UR CREATININE RESULT (test code 144.07 MG/DL 30-125 H = CREATU) UR MICROALBUMIN QUANT (test code 13.2 mg/L 0-20 N = MICALB) UR MICROALB/CREAT RATIO (test 9.2 mg/g cre <30.0 code = MICALB:CRE) [id number] 14:52:00 Test Item Value Reference Range Interpretation Comments GLUBED (test code = GLUBED) 102 mg/dL 70-110 N [id number] 12:21:00 Test Item Value Reference Range Interpretation Comments GLUBED (test code = GLUBED) 116 mg/dL 70-110 H - US RETRO [id number] 10:05:00 [facility] 1960 Sex: F FAX: Marsha Sullivan MD [phone] [place]: St: ADM FAX: Aston Guerra [phone] FAX: Flip Johnson MD [phone] FAX: oRdrigo Nuno MD [phone] Name: PAWAN REYES [facility] : 1960 Age/S: 59/F [address] [facility] #: [id number] Loc: [place], [place] Phys: [place] [address] Acct: [id number] Dis Date: Status: ADM IN PHONE #: [phone] Exam Date: 09/21/2020 0900 FAX #: [phone] Meme son: BLOSSOM EXAMS: CPT CODE: [id number] US RETRO LTD [id number]: - US RETRO LTD History: Acute kidney [...] MD Technologist: ZULEIKA THIBODEAUX Trnscrd Date/Time/By: 09/21/2020 (1001) : By: [email or web address] PAGE 1 Signed Report FAX: Marsha Sullivan MD [phone] [place]: St: ADM FAX: Aston Olvera [phone] FAX: Flip Johnson [facility] [phone] FAX: Rodrigo Nuno MD [phone] Name: PAWAN REYES [facility] : 1960 Age/S: 59/F [address] [facility] Unit#: [id number] Loc: [place], [place]: [place] [address] Acct: [id number] Dis Date: Status: ADM IN PHONE #: [phone] Exam Date: 09/21/2020 0900 FAX #: [phone] Reason: BLOSSOM EXAMS: CPT CODE: [id number] [facility] [address] <Continued> Orig Print D/T: S: 09/21/2020 (1003) PAGE 2 Signed ReportGLUBED 2020-09-21 08:27:00 Test Item Value Reference Range Interpretation Comments GLUBED (test code = GLUBED) 101 mg/dL 70-110 N COMPREHENSIVE METABOLIC [id number] 07:31:00 Test Item Value Reference Range Interpretation [...] 81 Units/L 50.0-136.0 N code = ALKP) [id number] 07:31:00 Test Item Value Reference Range Interpretation Comments LIPASE (test code = LIP) 635 Units/L 65.0-230.0 H CBC W/AUTO [id number] 07:14:00 Test Item Value Reference Range Interpretation [...] = 0.00 X10 3uL 0.00-0.01 N NRBC#) [id number] 22:16:00 Test Item Value Reference Range Interpretation Comments GLUBED (test code = GLUBED) 101 mg/dL 70-110 N - CT ABD PELVIS W/O [id number] 10:46:00 [facility] : 1960 Sex: F FAX: Aston Olvera [phone] [place]: St: REG FAX: Yocasta Colon MD [phone] FAX: Flip Johnson MD [phone] Name: PAWAN REYES [facility] : 1960 Age/S: 59/F [address] [facility] Unit: [id number] Loc: [address] Phys: [place] [address] Acct: [id number] Dis Date: Status: REG ER PHONE #: [phone] Exam Date: 09/20/2020 1040 FAX #: [phone] Reason: s/p gastric bypass september 08 with n/v/pain EXAMS: CPT CODE: [id number] CT ABD PELVIS W/O CONT [id number] EXAM: - CT ABD PELVIS W/O CONT [...] 1 Signed Report (CONTINUED) FAX: Aston Olvera [phone] [place]: St: [facility] FAX: Yocasta Gonzalez MD [phone] FAX: Flip Johnson MD [phone] Name: PAWAN REYES [facility] : 1960Age/S: 59/F [address] [facility] Unit: [id number] Loc: [address] Phys: [place] [address] Acct: [id number] Dis Date: Status: REG ER PHONE #: [phone] Exam Date: 09/20/2020 1040 FAX #: [phone] Reason:s/p gastric bypass september 08 with n/v/pain EXAMS: CPT CODE: [id number] CT ABD PELVIS W/O CONT 23570 <Continued> small bowel loops are not opacified [...] MD Technologist: DEZ CARLISLE Trnscrd Dt/Tm: 09/20/2020 (6716) [email or web address] Orig Print D/T: S: 09/20/2020 (1649 PAGE 2 Signed ReportURINALYSIS [id number] 10:13:00 Test Item Value Reference Range Interpretation [...] code = CGU) Specimen comments: Clean CatchURINALYSIS [id number] 10:11:00 Test Item Value Reference Range Interpretation [...] code = NONE BACU) Specimen comments: Clean [id number] 10:11:00 Test Item Value Reference Range Interpretation Comments TROPONIN-I (test <0.02 NG/ML 0.00-0.06 N REFERENCE R INOCENCIO code = TROPI) TROPONIN I HEA LTHY INDIVIDUALS: < 0.06 ng/mL R/O ISCHE TROY: 0.07 - 0.60 ng/ mL CUT-OFF RANGE F OR AMI: 0.60 - 1.5 ng/m L BASIC METABOLIC [id number] 10:11:00 Test Item Value Reference Range Interpretation [...] 9.0 mg/dl 8.0-10.5 N HEPATIC FUNCTION PANEL [id number] 10:11:00 Test Item Value Reference Range Interpretation [...] 101 Units/L 50.0-136.0 N code = ALKP) [id number] 10:11:00 Test Item Value Reference Range Interpretation Comments LIPASE (test code = LIP) 621 Units/L 65.0-230.0 H CBC W/AUTO [id number] 09:44:00 Test Item Value Reference Range Interpretation [...]
[2021-07-15] MEDS ORDERED: HYDROCODONE/APAP 10/325 TAB ONE (10:49)
--- NOTE | 2021-07-15 11:33 | RAD REPORT ---
EXAM DESCRIPTION: RAD - Finger-Thumb Right - 07/15/2021 11:19 am CLINICAL HISTORY: Finger injury FINDINGS: Comminuted fracture involves the fourth distal phalanx. 4 millimeter bony fragment lies ad jacent to mid aspect of the distal phalanx. No dislocation seen
[2021-07-15] MEDS ORDERED: LIDOCAINE 1% 20 ML MDV ONE (13:23)
[2021-07-15] MEDS ORDERED: BUPIVACAINE 0.5% PF 10 ML VIAL ONE (13:28)
[2021-07-15] MEDS ORDERED: CEFAZOLIN SODIUM 1 GM/VIAL ONE (14:32)
[2021-07-15] MEDS ORDERED: TETANUS & DIPHTHERIA TOX,ADULT 0.5 ML VIAL ONE (14:33)
--- NOTE | 2021-07-15 14:33 | EDPHYS ---
Physician Documentation [facility] Name: Jia Ellis Age: 60 yrs Sex: Female : 1960 Arrival Date: 07/15/2021 Time: 10:25 Bed 10 Private MD: ED Physician Micheal Davis HPI: 07/15 14:41 This 60 yrs old Female presents to ER via Ambulatory with complaints of Smashed Finger. ms3 14:41 The patient or guardian reports pain. The complaints affect the Right ring finger. ms3 Context: The problem was sustained at a Outside hooking tractor to equipment. Onset: The symptoms/episode began/occurred acutely, 1 hour(s) ago. Modifying factors: The symptoms are alleviated by nothing, the symptoms are aggravated by nothing. Associated signs and symptoms: The patient has no apparent associated signs or symptoms. Severity of symptoms: At their worst the symptoms were severe, in the emergency department the symptoms are unchanged. Historical: - Allergies: 10:39 Sulfa (Sulfonamide Antibiotics); ph - PMHx: 10:39 depressive disorder; Hypercholesterolemia; ph - PSHx: 10:39 achilles sx; Carpel Tunnel; Cholecystectomy; Gastric Bypass; Neck sx; partial ph hysterectomy; - Immunization history:: Adult Immunizations up to date. - Social history:: Smoking status: Patient denies any tobacco usage or history of. ROS: 14:32 Constitutional: Negative for fever, and chills. Eyes: Negative for injury, pain, ms3 redness, and discharge, Neck: Negative for injury, pain, and swelling, Cardiovascular: Negative for chest pain, and palpitations. Respiratory: Negative for shortness of breath, cough, wheezing, and pleuritic chest pain, Abdomen/GI: Negative for abdominal pain, nausea, vomiting, diarrhea, and constipation. 14:32 MS/extremity: Positive for pain. 14:32 All other systems are negative. Exam: 14:32 Constitutional: This is a well developed, well nourished patient who is awake, alert, ms3 and in no acute distress. Eyes: Pupils equal round and reactive to light, extra-ocular motions intact. Lids and lashes normal. Conjunctiva and sclera are non-icteric and not injected. Periorbital areas with no swelling, redness, or edema. Neck: Trachea midline, no cervical lymphadenopathy. Supple, full range of motion without nuchal rigidity, or vertebral point tenderness. No Meningismus. Chest/axilla: Normal chest wall appearance and motion. Nontender with no deformity. Cardiovascular: Regular rate and rhythm with a normal S1 and S2. No gallops, murmurs, or rubs. Normal PMI, no JVD. No pulse deficits. Respiratory: Lungs have equal breath sounds bilaterally, clear to auscultation and percussion. No rales, rhonchi or wheezes noted. No increased work of breathing, no retractions or nasal flaring. Abdomen/GI: Soft, non-tender, with normal bowel sounds. No distension or tympany. No guarding or rebound. No evidence of tenderness throughout. 14:32 Musculoskeletal/extremity: Extremities: noted in the right ring fingernail and palmar aspect of distal phalanx of right ring finger and dorsal aspect of distal phalanx of right ring finger: laceration, pain, swelling, tenderness. Vital Signs: 10:36 BP 111 / 58; Pulse 70; Resp 18; Temp 97.8; Pulse Ox 100% on R/A; Weight 90.26 kg; ph Height 5 ft. 6 in. (167.64 cm); 10:36 Body Mass Index 32.12 (90.26 kg, 167.64 cm) ph Laceration: 14:13 Wound Repair of 2.5cm ( 1.0in ) subcutaneous laceration to distal phalanx right fourth cp finger. Irregularly shaped.. Distal neuro/vascular/tendon intact. Anesthesia: Digital block administered with 6 mls of Lido/Marcaine. Wound prep: Extensive cleansing by me, Wound irrigation by me. Skin closed with 7 4-0 Prolene using interrupted sutures and sterile technique. Dressed with Bacitracin, finger splint. Patient tolerated well. MDM: 13:04 Patient medically screened. ms3 14:32 Differential diagnosis: dislocation, open fracture, contusion. Data reviewed: vital ms3 signs, nurses notes, radiologic studies. Counseling: I had a detailed discussion with the patient and/or guardian regarding: the historical points, exam findings, and any diagnostic results supporting the discharge/admit diagnosis, radiology results, the need for outpatient follow up, to return to the emergency department if symptoms worsen or persist or if there are any questions or concerns that arise at home. ED course: Case discussed with Dr Jon and he will see patient in his office Thursday at 2 PM. Laceration to be irrigated and closed. Agrees with TMP/SMX on d/c. Discussed plan with patient and her and they understand/ agree with plan. All questions answered. Return precautions given to include worsening symptoms, or any other concerns. Wound hemostatic at time of discharge.. 07/15 11:16 Order name: Finger-Thumb Right; Complete Time: 12:05 EDMS 07/15 13:21 Order name: Dressing - Wound; Complete Time: 19:10 cp 07/15 13:21 Order name: Gloves, Sterile; Complete Time: 14:37 cp 07/15 13:21 Order name: Setup Suture Tray; Complete Time: 14:37 cp Administered Medications: 10:47 Drug: [place] (HYDROcodone-acetaminophen) 10 mg-325 mg 1 tabs Route: PO; ph 14:37 Follow up: Response: No adverse reaction; Pain is decreased; RASS: Alert and Calm (0) ll1 14:15 Drug: Lidocaine (1 %) 20 ml {Note: by Charito Oreilly during suture repair.} Volume: 20 ml; ll1 Route: Infiltration; 14:38 Follow up: Response: No adverse reaction ll1 14:15 Drug: Marcaine (bupivacaine) (0.5 %) 10 ml {Note: by Charito Oreilly during suture repair.} ll1 Volume: 10 ml; Route: Infiltration; 14:38 Follow up: Response: No adverse reaction ll1 14:39 Drug: ADAcel 0.5 ml {Exam Proctor: Research Journalist. Exp: 06/08/2023. Lot #: [id number]. } ll1 Route: IM; Site: right deltoid; 19:10 Follow up: Response: No adverse reaction ll1 14:40 Drug: Ancef (cefazolin) 1 grams Route: IM; Site: right gluteus; ll1 19:10 Follow up: Response: No adverse reaction ll1 Disposition: 21:39 Co-signature as Attending Physician, Micheal ALLEN was immediately available on-site ms3 in the Emergency Department for consultation in the care of the patient.. Disposition Summary: 07/15/21 14:32 Discharge Ordered Location: Home ms3 Condition: Stable ms3 Diagnosis - Open right index finger fracture ms3 - Displaced fracture of distal phalanx of finger ms3 - Crushing injury of right index finger, initial encounter ms3 Followup: ms3 - With: Rodrigo Anthony MD - When: Follow up on Thursday at 2 PM. Please call their office to confirm appointment - Reason: Recheck today's complaints Discharge Instructions: - Discharge Summary Sheet ms3 - Finger Fracture, Adult ms3 Forms: - Medication Reconciliation Form ms3 - Thank You Letter ms3 - Antibiotic Education ms3 - Prescription Opioid Use ms3 Prescriptions: - Bactrim DS 800-160 mg Oral Tablet - take 1 tablet by ORAL route every 12 hours for 5 days; 10 tablet; Refills: 0, ms3 Product Selection Permitted Signatures: Dispatcher [employer] Janay Scott RN RN Kris Neal PA PA cp Lewis, Lynsay, RN RN ll1 Micheal Davis DO DO ms3 Corrections: (The following items were deleted from the chart) 11:16 10:51 Hand Right 3 View+RAD.RAD.BRZ ordered. EDMS EDMS
--- NOTE | 2021-07-15 14:33 | ER ---
Nurse's Notes [facility] Name: Jia Ellis Age: 60 yrs Sex: Female : 1960 Arrival Date: 07/15/2021 Time: 10:25 Bed 10 Private MD: Diagnosis: Open right index finger fracture;Displaced fracture of distal phalanx of finger;Crushing injury of right index finger, initial encounter Presentation: 07/15 10:36 Chief complaint: Patient states: Smashed R ring finger in farm equipment [employer], ph laceration noted just below nail bed, bleeding controlled, deformity noted. Coronavirus screen: Vaccine status: Patient reports being unvaccinated. Ebola Screen: No symptoms or risks identified at this time. Initial Sepsis Screen: Does the patient meet any 2 criteria? No. Patient's initial sepsis screen is negative. Does the patient have a suspected source of infection? No. Patient's initial sepsis screen is negative. Risk Assessment: Do you want to hurt yourself or someone else? Patient reports no desire to harm self or others. Onset of symptoms was July 15, 2021. 10:36 Method Of Arrival: Ambulatory ph 10:36 Acuity: LUISITO 3 ph Triage Assessment: 10:39 General: Appears in no apparent distress. Behavior is calm, cooperative, appropriate ph for age. Pain: Complains of pain in dorsal aspect of distal phalanx of right ring finger, palmar aspect of distal phalanx of right ring finger and right ring fingernail. Neuro: Level of Consciousness is awake, alert, obeys commands, Oriented to person, place, time, situation. Cardiovascular: Capillary refill < 3 seconds in bilateral fingers Patient's skin is warm and dry. Respiratory: No deficits noted. Derm: Skin is healthy with good turgor, Skin is pink, warm \T\ dry. Injury Description: Crush injury sustained to dorsal aspect of distal phalanx of right ring finger and palmar aspect of distal phalanx of right ring finger Laceration sustained to palmar aspect of distal phalanx of right ring finger is was sustained 30-60 minutes ago. a small amount of bleeding noted at this time. Historical: - Allergies: 10:39 Sulfa (Sulfonamide Antibiotics); ph - PMHx: 10:39 depressive disorder; Hypercholesterolemia; ph - PSHx: 10:39 achilles sx; Carpel Tunnel; Cholecystectomy; Gastric Bypass; Neck sx; partial ph hysterectomy; - Immunization history:: Adult Immunizations up to date. - Social history:: Smoking status: Patient denies any tobacco usage or history of. Screenin:41 Abuse screen: Denies threats or abuse. Denies injuries from another. Nutritional ph screening: No deficits noted. Tuberculosis screening: No symptoms or risk factors identified. Fall Risk None identified. Assessment: 10:42 Reassessment: Dr Davis in triage to assess pt. ph 14:15 Reassessment: No changes from previously documented assessment. Patient and/or family ll1 updated on plan of care and expected duration. Pain level reassessed. Patient is alert, oriented x 3, equal unlabored respirations, skin warm/dry/pink. 15:05 Reassessment: No changes from previously documented assessment. Patient and/or family ll1 updated on plan of care and expected duration. Pain level reassessed. Patient is alert, oriented x 3, equal unlabored respirations, skin warm/dry/pink. Patient states symptoms have improved. Vital Signs: 10:36 BP 111 / 58; Pulse 70; Resp 18; Temp 97.8; Pulse Ox 100% on R/A; Weight 90.26 kg; ph Height 5 ft. 6 in. (167.64 cm); 10:36 Body Mass Index 32.12 (90.26 kg, 167.64 cm) ph ED Course: 10:25 Patient arrived in ED. mr 10:37 Micheal Davis DO is Attending Physician. ms3 10:39 Triage completed. ph 10:41 Arm band placed on Patient placed in waiting room, Patient notified of wait time. X-ray ph ordered. 10:42 Patient has correct armband on for positive identification. ph 10:47 Janay Matta, DAVID is Primary Nurse. ph 11:20 Finger-Thumb Right In Process Unspecified. EDMS 14:27 Rodrigo Anthony MD is Referral Physician. ms3 15:00 Wound care: to laceration located on right hand was dressed with Neosporin, 4X4s, ll1 Kerlix, Patient tolerated well. 15:05 No provider procedures requiring assistance completed. Patient did not have IV access ll1 during this emergency room visit. Administered Medications: 10:47 Drug: Hartwick (HYDROcodone-acetaminophen) 10 mg-325 mg 1 tabs Route: PO; ph 14:37 Follow up: Response: No adverse reaction; Pain is decreased; RASS: Alert and Calm (0) ll1 14:15 Drug: Lidocaine (1 %) 20 ml {Note: by Charito Oreilly during suture repair.} Volume: 20 ml; ll1 Route: Infiltration; 14:38 Follow up: Response: No adverse reaction ll1 14:15 Drug: Marcaine (bupivacaine) (0.5 %) 10 ml {Note: by Charito Oreilly during suture repair.} ll1 Volume: 10 ml; Route: Infiltration; 14:38 Follow up: Response: No adverse reaction ll1 14:39 Drug: ADAcel 0.5 ml {Washing Tub Operator: [employer]. Exp: 06/08/2023. Lot #: [id number]. } ll1 Route: IM; Site: right deltoid; 19:10 Follow up: Response: No adverse reaction ll1 14:40 Drug: Ancef (cefazolin) 1 grams Route: IM; Site: right gluteus; ll1 19:10 Follow up: Response: No adverse reaction ll1 Outcome: 14:32 Discharge ordered by . ms3 15:05 Patient left the ED. ll1 15:05 Discharged to home ambulatory. ll1 15:05 Condition: stable 15:05 Discharge instructions given to patient, Instructed on discharge instructions, follow up and referral plans. medication usage, wound care, Demonstrated understanding of instructions, follow-up care, medications, Prescriptions given X 1. Signatures: Dispatcher [employer] Marsha Rincon Patricia, RN RN ph Lewis, Lynsay, RN RN 1 Micheal Davis DO DO ms3
[2021-07-15] MEDS ORDERED: WATER FOR INJ,STERILE 10 ML ONE (14:34)
[2021-07-15 19:33] VITALS: BP 111/58; TEMP 97.8; O2SAT 100
== END 2021-07-15 15:05 | disposition home or self-care (01) ==
LOC: ER 10:24
PROC: 0JQJ0ZZ Repair Right Hand Subcutaneous Tissue and Fascia, Open Approach (ICD-10-PCS; principal; 2021-07-15)
DX: S62.630B Displaced fracture of distal phalanx of right index finger, initial encounter for open fracture (principal); W31.89XA Contact with other specified machinery, initial encounter; Z23 Encounter for immunization; Z88.2 Allergy status to sulfonamides
CPT/HCPCS: 73140; 90471; 90714; 96372; 99284; 12001; J0690

== ENCOUNTER 2021-07-17 14:30 | Day surgery (SDC) | payer OTHER ==
[2021-07-17] MEDS ORDERED: Ringers Lactate 1,000 ML IV ONE (14:49)
[2021-07-17 15:05] LABS: Hematocrit 37.5 % (36.0-45.0); Lymphocytes % 29.3 % (15.3-44.8); MPV 7.2 fL (7.6-11.3); RBC Red Blood Cell Count 4.13 M/uL (3.86-4.86)
[2021-07-17] MEDS ORDERED: ONDANSETRON 4 MG/2 ML VIAL ONE (15:05)
[2021-07-17] MEDS ORDERED: FENTANYL CITR 100 MCG/2 ML ONE (15:05)
[2021-07-17] MEDS ORDERED: propofoL 200 MG/20 ML VIAL IV ONE (15:05)
[2021-07-17] MEDS ORDERED: MIDAZOLAM HCL 2 MG/2 ML INJ ONE (15:05)
[2021-07-17] MEDS ORDERED: LIDOCAINE 2% MPF 5 ML VIAL ONE (15:05)
[2021-07-17] MEDS ORDERED: CEFAZOLIN SODIUM 1 GM/VIAL ONE (15:10)
[2021-07-17] MEDS ORDERED: MEPERIDINE HCL 25 MG/ML SYR ONE (16:33)
[2021-07-17] MEDS: FENTANYL CITR 100 MCG/2 ML ONE ×3 (16:34→16:51)
--- NOTE | 2021-07-17 16:47 | RAD REPORT ---
EXAM DESCRIPTION: RAD - Hand Right 2 View - 07/17/2021 4:39 pm CLINICAL HISTORY: Finger fracture FINDINGS: Pin affixes a fracture of the fourth distal phalanx. Seven intraoperative fluoroscopic spot images obtained. Fluoroscopy time [address] Anthony
[2021-07-17 17:38] VITALS: BP 128/68
[2021-07-17 17:39] VITALS: TEMP 97.6; O2SAT 98
== END 2021-07-17 17:32 | disposition home or self-care (01) ==
LOC: OR 14:30
PROVIDERS: ATTEND Specialist
PROC: 0PST04Z Reposition Right Finger Phalanx with Internal Fixation Device, Open Approach (ICD-10-PCS; 2021-07-17)
PROC: 0PST04Z Reposition Right Finger Phalanx with Internal Fixation Device, Open Approach (ICD-10-PCS; principal; 2021-07-17 14:00)
DX: S62.634A Displaced fracture of distal phalanx of right ring finger, initial encounter for closed fracture (principal); Z20.822 Contact with and (suspected) exposure to COVID-19
CPT/HCPCS: 85025; 36415; 73120; 26765; 11012; U0003; J2704; J2250; J3010 ×2; J2175; J7120; J2405; J0690

== ENCOUNTER 2022-09-09 09:52 | Emergency (ER) | payer OTHER ==
--- OUTSIDE RECORDS SUMMARY | 2022-09-09 09:58 | XMS REPORT | Continuity of Care Document ---
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 10 No 1 Q1D Farxiga 10 [facility] mg tablet mg tablet mg tablet Medical Take 1 Take 1 Take 1 tablet tablet tablet every day every day every day by oral by oral by oral route for route for route for 90 days. 90 days. 90 days. folic acid folic acid No folic acid [facility] 1 mg tablet 1 mg tablet 1 mg M edical TAKE 1 TAKE 1 tablet TABLET BY TABLET BY TAKE 1 MOUTH EVERY MOUTH EVERY TABLET BY DAY DAY MOUTH EVERY DAY hydrocodone hydrocodone No hydrocodon [facility] 5 5 e 5 [facility] mg-acetamin mg-acetamin mg-acetami ophen 325 ophen 325 nophen 325 mg tablet mg tablet mg tablet TAKE 1 TAKE 1 TAKE 1 TABLET BY TABLET BY TABLET BY MOUTH EVERY MOUTH EVERY MOUTH 12 HOURS 12 HOURS EVERY 12 NEEDED FOR NEEDED FOR HOURS 30 DAYS 30 DAYS NEEDED FOR 30 DAYS magnesium magnesium No 1 Q1D magnesium [facility] 250 mg (as 250 mg (as 250 mg (as Medical magnesium magnesium magnesium oxide) oxide) oxide) tablet Take tablet Take tablet 1 tablet 1 tablet Take 1 every day every day tablet by oral by oral every day route for route for by oral 15 days. 15 days. route for 15 days. methocarbam methocarbam No methocarba [facility] ol 500 mg ol 500 mg mol 500 mg Medical tablet TAKE tablet TAKE tablet 1 TABLET BY 1 TABLET BY TAKE 1 MOUTH EVERY MOUTH EVERY TABLET BY DAY DAY MOUTH EVERY DAY pregabalin pregabalin No pregabalin [facility] 100 mg 100 mg 100 mg Medical capsule capsule capsule TAKE 1 TAKE 1 TAKE 1 CAPSULE BY CAPSULE BY CAPSULE BY MOUTH TWICE MOUTH TWICE MOUTH A DAY A DAY TWICE A DAY pregabalin pregabalin No pregabalin [facility] 100 mg 100 mg 100 mg [facility] capsule capsule capsule dic TAKE 1 TAKE 1 TAKE 1 Sports CAPSULE BY CAPSULE BY CAPSULE BY Medicin MOUTH TWICE MOUTH TWICE MOUTH e A DAY A DAY TWICE A DAY solifenacin solifenacin No solifenaci [facility] 10 mg 10 mg n 10 mg Medical tablet TAKE tablet TAKE tablet 1 TABLET BY 1 TABLET BY TAKE 1 MOUTH EVERY MOUTH EVERY TABLET BY DAY DAY MOUTH EVERY DAY sulfamethox sulfamethox No sulfametho [facility] azole 800 azole 800 xazole 800 Medical mg-trimetho mg-trimetho mg-trimeth prim 160 mg prim 160 mg oprim 160 tablet TAKE tablet TAKE mg tablet 1 TABLET BY 1 TABLET BY TAKE 1 MOUTH EVERY MOUTH EVERY TABLET BY 12 HOURS 12 HOURS MOUTH FOR 5 DAYS FOR 5 DAYS EVERY 12 HOURS FOR 5 DAYS terbinafine terbinafine No terbinafin [facility] HCl 250 mg HCl 250 mg e HCl 250 Medical tablet TAKE tablet TAKE mg tablet 1 TABLET BY 1 TABLET BY TAKE 1 MOUTH EVERY MOUTH EVERY TABLET BY DAY DAY MOUTH EVERY DAY tramadol 50 tramadol 50 No tramadol [facility] mg tablet mg tablet 50 mg Medi pia TAKE 1 TAKE 1 tablet TABLET BY TABLET BY TAKE 1 MOUTH EVERY MOUTH EVERY TABLET BY DAY DAY MOUTH NEEDED FOR NEEDED FOR EVERY DAY 90 DAYS 90 DAYS NEEDED FOR 90 DAYS trazodone trazodone No trazodone [facility] 50 mg 50 mg 50 mg Medical tablet TAKE tablet TAKE tablet 1 TABLET BY 1 TABLET BY TAKE 1 MOUTH MOUTH TABLET BY EVERYDAY AT EVERYDAY AT MOUTH BEDTIME BEDTIME EVERYDAY AT BEDTIME triamcinolo triamcinolo No triamcinol [facility] ne ne one [facility] acetonide acetonide acetonide 0.1 % 0.1 % 0.1 % topical topical topical cream APPLY cream APPLY cream 1 1 APPLY 1 APPLICATION APPLICATION APPLICATIO (S) EVERY (S) EVERY N(S) EVERY DAY BY DAY BY DAY BY TOPICAL TOPICAL TOPICAL ROUTE ROUTE ROUTE NEEDED NEEDED NEEDED atorvastati atorvastati No atorvastat [facility] n 80 mg n 80 mg in 80 mg [facility] al tablet TAKE tablet TAKE tablet 1 TABLET BY 1 TABLET BY TAKE 1 MOUTH EVERY MOUTH EVERY TABLET BY DAY DAY MOUTH EVERY DAY clindamycin clindamycin No clindamyci [facility] HCl 150 mg HCl 150 mg n HCl 150 Medical capsule capsule mg capsule TAKE 1 TAKE 1 TAKE 1 CAPSULE BY CAPSULE BY CAPSULE BY MOUTH FOUR MOUTH FOUR MOUTH FOUR TIMES A DAY TIMES A DAY TIMES A DAY ergocalcife ergocalcife No ergocalcif [facility] (vitamin (vitamin (vitamin D2) 1,250 D2) 1,250 D2) 1,250 mcg (50,000 mcg (50,000 mcg unit) unit) (50,000 capsule capsule unit) TAKE 1 TAKE 1 capsule CAPSULE BY CAPSULE BY TAKE 1 MOUTH ONE MOUTH ONE CAPSULE BY TIME PER TIME PER MOUTH ONE WEEK FOR 90 WEEK FOR 90 TIME PER DAYS DAYS WEEK FOR 90 DAYS escitalopra escitalopra No escitalopr [facility] m 20 mg m 20 mg am 20 mg Medic al tablet TAKE tablet TAKE tablet 1 TABLET BY 1 TABLET BY TAKE 1 MOUTH EVERY MOUTH EVERY TABLET BY DAY DAY MOUTH EVERY DAY solifenacin solifenacin No solifenaci [facility] 10 mg 10 mg n 10 mg [facility] tablet TAKE tablet TAKE tablet dic 1 TABLET BY 1 TABLET BY TAKE 1 Sports MOUTH EVERY MOUTH EVERY TABLET BY Medicin DAY DAY MOUTH e EVERY DAY Farxiga 10 [facility] 10 No Farxiga 10 [facility] mg tablet mg tablet mg tablet Medical TAKE 1 TAKE 1 TAKE 1 TABLET BY TABLET BY TABLET BY MOUTH EVERY MOUTH EVERY MOUTH DAY DAY EVERY DAY folic acid folic acid No 1 Q1D folic acid [facility] 1 mg tablet 1 mg tablet 1 mg M edical Take 1 Take 1 tablet tablet tablet Take 1 every day every day tablet by oral by oral every day route as route as by oral directed directed route as for 90 for 90 directed days. days. for 90 days. hydrocodone hydrocodone No hydrocodon [facility] 5 5 e 5 [facility] mg-acetamin mg-acetamin mg-acetami ophen 325 ophen 325 nophen 325 mg tablet mg tablet mg tablet TAKE 1 TAKE 1 TAKE 1 TABLET BY TABLET BY TABLET BY MOUTH EVERY MOUTH EVERY MOUTH 12 HOURS 12 HOURS EVERY 12 NEEDED FOR NEEDED FOR HOURS 30 DAYS 30 DAYS NEEDED FOR 30 DAYS methocarbam methocarbam No methocarba [facility] ol 500 mg ol 500 mg mol 500 mg Medical tablet TAKE tablet TAKE tablet 1 TABLET BY 1 TABLET BY TAKE 1 MOUTH EVERY MOUTH EVERY TABLET BY DAY DAY MOUTH EVERY DAY pregabalin pregabalin No pregabalin [facility] 100 mg 100 mg 100 mg Medical capsule capsule capsule TAKE 1 TAKE 1 TAKE 1 CAPSULE BY CAPSULE BY CAPSULE BY MOUTH TWICE MOUTH TWICE MOUTH A DAY A DAY TWICE A DAY solifenacin solifenacin No solifenaci [facility] 10 mg 10 mg n 10 mg Medical tablet TAKE tablet TAKE tablet 1 TABLET BY 1 TABLET BY TAKE 1 MOUTH EVERY MOUTH EVERY TABLET BY DAY DAY MOUTH EVERY DAY terbinafine terbinafine No terbinafin [facility] HCl 250 mg HCl 250 mg e HCl 250 Medical tablet TAKE tablet TAKE mg tablet 1 TABLET BY 1 TABLET BY TAKE 1 MOUTH EVERY MOUTH EVERY TABLET BY DAY DAY MOUTH EVERY DAY tramadol 50 tramadol 50 No tramadol [facility] mg tablet mg tablet 50 mg Medi pia TAKE 1 TAKE 1 tablet TABLET BY TABLET BY TAKE 1 MOUTH EVERY MOUTH EVERY TABLET BY DAY DAY MOUTH NEEDED FOR NEEDED FOR EVERY DAY 90 DAYS 90 DAYS NEEDED FOR 90 DAYS trazodone trazodone No trazodone [facility] 50 mg 50 mg 50 mg Medical tablet TAKE tablet TAKE tablet 1 TABLET BY 1 TABLET BY TAKE 1 MOUTH MOUTH TABLET BY EVERYDAY AT EVERYDAY AT MOUTH BEDTIME BEDTIME EVERYDAY AT BEDTIME triamcinolo triamcinolo No triamcinol [facility] ne ne one [facility] acetonide acetonide acetonide 0.1 % 0.1 % 0.1 % topical topical topical cream APPLY cream APPLY cream 1 1 APPLY 1 APPLICATION APPLICATION APPLICATIO (S) EVERY (S) EVERY N(S) EVERY DAY BY DAY BY DAY BY TOPICAL TOPICAL TOPICAL ROUTE ROUTE ROUTE NEEDED NEEDED NEEDED sulfamethox sulfamethox No sulfametho [facility] azole 800 azole 800 xazole 800 [facility] mg-trimetho mg-trimetho mg-trimeth dic prim 160 mg prim 160 mg oprim 160 Sports tablet TAKE tablet TAKE mg tablet Medicin 1 TABLET BY 1 TABLET BY TAKE 1 e MOUTH EVERY MOUTH EVERY TABLET BY 12 HOURS 12 HOURS MOUTH FOR 5 DAYS FOR 5 DAYS EVERY 12 HOURS FOR 5 DAYS atorvastati atorvastati No atorvastat [facility] n 80 mg n 80 mg in 80 mg Medic al tablet TAKE tablet TAKE tablet 1 TABLET BY 1 TABLET BY TAKE 1 MOUTH EVERY MOUTH EVERY TABLET BY DAY DAY MOUTH EVERY DAY clindamycin clindamycin No clindamyci [facility] HCl 150 mg HCl 150 mg n HCl 150 Medical capsule capsule mg capsule TAKE 1 TAKE 1 TAKE 1 CAPSULE BY CAPSULE BY CAPSULE BY MOUTH FOUR MOUTH FOUR MOUTH FOUR TIMES A DAY TIMES A DAY TIMES A DAY ergocalcife ergocalcife No ergocalcif [facility] (vitamin (vitamin (vitamin D2) 1,250 D2) 1,250 D2) 1,250 mcg (50,000 mcg (50,000 mcg unit) unit) (50,000 capsule capsule unit) TAKE 1 TAKE 1 capsule CAPSULE BY CAPSULE BY TAKE 1 MOUTH ONE MOUTH ONE CAPSULE BY TIME PER TIME PER MOUTH ONE WEEK FOR 90 WEEK FOR 90 TIME PER DAYS DAYS WEEK FOR 90 DAYS escitalopra escitalopra No escitalopr [facility] m 20 mg m 20 mg am 20 mg Medic al tablet TAKE tablet TAKE tablet 1 TABLET BY 1 TABLET BY TAKE 1 MOUTH EVERY MOUTH EVERY TABLET BY DAY DAY MOUTH EVERY DAY Farxiga 10 [facility] 10 No Farxiga 10 [facility] mg tablet mg tablet mg tablet Medical TAKE 1 TAKE 1 TAKE 1 TABLET BY TABLET BY TABLET BY MOUTH EVERY MOUTH EVERY MOUTH DAY DAY EVERY DAY folic acid folic acid No folic acid [facility] 1 mg tablet 1 mg tablet 1 mg M edical TAKE 1 TAKE 1 tablet TABLET BY TABLET BY TAKE 1 MOUTH EVERY MOUTH EVERY TABLET BY DAY DAY MOUTH DIRECTED DIRECTED EVERY DAY DIRECTED hydrocodone hydrocodone No hydrocodon [facility] 5 5 e 5 [facility] mg-acetamin mg-acetamin mg-acetami ophen 325 ophen 325 nophen 325 mg tablet mg tablet mg tablet TAKE 1 TAKE 1 TAKE 1 TABLET BY TABLET BY TABLET BY MOUTH EVERY MOUTH EVERY MOUTH 12 HOURS 12 HOURS EVERY 12 NEEDED FOR NEEDED FOR HOURS 30 DAYS 30 DAYS NEEDED FOR 30 DAYS methocarbam methocarbam No 1 Q1D methocarba [facility] ol 500 mg ol 500 mg mol 500 mg Medical tablet Take tablet Take tablet 1 tablet 1 tablet Take 1 every day every day tablet by oral by oral every day route for route for by oral 30 days. 30 days. route for 30 days. pregabalin pregabalin No pregabalin [facility] 100 mg 100 mg 100 mg Medical capsule capsule capsule TAKE 1 TAKE 1 TAKE 1 CAPSULE BY CAPSULE BY CAPSULE BY MOUTH TWICE MOUTH TWICE MOUTH A DAY A DAY TWICE A DAY solifenacin solifenacin No solifenaci [facility] 10 mg 10 mg n 10 mg Medical tablet TAKE tablet TAKE tablet 1 TABLET BY 1 TABLET BY TAKE 1 MOUTH EVERY MOUTH EVERY TABLET BY DAY DAY MOUTH EVERY DAY terbinafine terbinafine No terbinafin [facility] HCl 250 mg HCl 250 mg e HCl 250 [facility] tablet TAKE tablet TAKE mg tablet dic 1 TABLET BY 1 TABLET BY TAKE 1 Sports MOUTH EVERY MOUTH EVERY TABLET BY Medicin DAY DAY MOUTH e EVERY DAY terbinafine terbinafine No terbinafin [facility] HCl 250 mg HCl 250 mg e HCl 250 Medical tablet TAKE tablet TAKE mg tablet 1 TABLET BY 1 TABLET BY TAKE 1 MOUTH EVERY MOUTH EVERY TABLET BY DAY DAY MOUTH EVERY DAY tramadol 50 tramadol 50 No 1 Q1D tramadol [facility] mg tablet mg tablet 50 mg Medi pia Take 1 Take 1 tablet tablet tablet Take 1 every day every day tablet by oral by oral every day route as route as by oral needed for needed for route as 90 days. 90 days. needed for 90 days. trazodone trazodone No trazodone [facility] 50 mg 50 mg 50 mg Medical tablet TAKE tablet TAKE tablet 1 TABLET BY 1 TABLET BY TAKE 1 MOUTH MOUTH TABLET BY EVERYDAY AT EVERYDAY AT MOUTH BEDTIME BEDTIME EVERYDAY AT BEDTIME triamcinolo triamcinolo No triamcinol [facility] ne ne one [facility] acetonide acetonide acetonide 0.1 % 0.1 % 0.1 % topical topical topical cream APPLY cream APPLY cream 1 1 APPLY 1 APPLICATION APPLICATION APPLICATIO (S) EVERY (S) EVERY N(S) EVERY DAY BY DAY BY DAY BY TOPICAL TOPICAL TOPICAL ROUTE ROUTE ROUTE NEEDED NEEDED NEEDED atorvastati atorvastati No atorvastat [facility] n 80 mg n 80 mg in 80 mg Medic al tablet TAKE tablet TAKE tablet 1 TABLET BY 1 TABLET BY TAKE 1 MOUTH EVERY MOUTH EVERY TABLET BY DAY DAY MOUTH EVERY DAY clindamycin clindamycin No clindamyci [facility] HCl 150 mg HCl 150 mg n HCl 150 Medical capsule capsule mg capsule TAKE 1 TAKE 1 TAKE 1 CAPSULE BY CAPSULE BY CAPSULE BY MOUTH FOUR MOUTH FOUR MOUTH FOUR TIMES A DAY TIMES A DAY TIMES A DAY ergocalcife ergocalcife No ergocalcif [facility] (vitamin (vitamin (vitamin D2) 1,250 D2) 1,250 D2) 1,250 mcg (50,000 mcg (50,000 mcg unit) unit) (50,000 capsule capsule unit) TAKE 1 TAKE 1 capsule CAPSULE BY CAPSULE BY TAKE 1 MOUTH ONE MOUTH ONE CAPSULE BY TIME PER TIME PER MOUTH ONE WEEK FOR 90 WEEK FOR 90 TIME PER DAYS DAYS WEEK FOR 90 DAYS escitalopra escitalopra No escitalopr [facility] m 20 mg m 20 mg am 20 mg Medic al tablet TAKE tablet TAKE tablet 1 TABLET BY 1 TABLET BY TAKE 1 MOUTH EVERY MOUTH EVERY TABLET BY DAY DAY MOUTH EVERY DAY Farxiga 10 Farxiga 10 No Farxiga 10 [facility] mg tablet mg tablet mg tablet Medical TAKE 1 TAKE 1 TAKE 1 TABLET BY TABLET BY TABLET BY MOUTH EVERY MOUTH EVERY MOUTH DAY DAY EVERY DAY folic acid folic acid No folic acid [facility] 1 mg tablet 1 mg tablet 1 mg M edical TAKE 1 TAKE 1 tablet TABLET BY TABLET BY TAKE 1 MOUTH EVERY MOUTH EVERY TABLET BY DAY DAY MOUTH DIRECTED DIRECTED EVERY DAY DIRECTED triamcinolo triamcinolo No triamcinol [facility] ne ne one [facility] acetonide acetonide acetonide dic 0.1 % 0.1 % 0.1 % Sports topical topical topical Medic[facility] n cream APPLY cream APPLY cream e 1 1 APPLY 1 APPLICATION APPLICATION APPLICATIO (S) EVERY (S) EVERY N(S) EVERY DAY BY DAY BY DAY BY TOPICAL TOPICAL TOPICAL ROUTE ROUTE ROUTE NEEDED NEEDED NEEDED hydrocodone hydrocodone No hydrocodon [facility] 5 5 e 5 [facility] mg-acetamin mg-acetamin mg-acetami ophen 325 ophen 325 nophen 325 mg tablet mg tablet mg tablet TAKE 1 TAKE 1 TAKE 1 TABLET BY TABLET BY TABLET BY MOUTH EVERY MOUTH EVERY MOUTH 12 HOURS 12 HOURS EVERY 12 NEEDED FOR NEEDED FOR HOURS 30 DAYS 30 DAYS NEEDED FOR 30 DAYS methocarbam methocarbam No 1 Q1D methocarba [facility] ol 500 mg ol 500 mg mol 500 mg Medical tablet Take tablet Take tablet 1 tablet 1 tablet Take 1 every day every day tablet by oral by oral every day route for route for by oral 30 days. 30 days. route for 30 days. pregabalin pregabalin No pregabalin [facility] 100 mg 100 mg 100 mg Medical capsule capsule capsule TAKE 1 TAKE 1 TAKE 1 CAPSULE BY CAPSULE BY CAPSULE BY MOUTH TWICE MOUTH TWICE MOUTH A DAY A DAY TWICE A DAY solifenacin solifenacin No solifenaci [facility] 10 mg 10 mg n 10 mg Medical tablet TAKE tablet TAKE tablet 1 TABLET BY 1 TABLET BY TAKE 1 MOUTH EVERY MOUTH EVERY TABLET BY DAY DAY MOUTH EVERY DAY terbinafine terbinafine No terbinafin [facility] HCl 250 mg HCl 250 mg e HCl 250 Medical tablet TAKE tablet TAKE mg tablet 1 TABLET BY 1 TABLET BY TAKE 1 MOUTH EVERY MOUTH EVERY TABLET BY DAY DAY MOUTH EVERY DAY tramadol 50 tramadol 50 No 1 Q1D tramadol [facility] mg tablet mg tablet 50 mg Medi pia Take 1 Take 1 tablet tablet tablet Take 1 every day every day tablet by oral by oral every day route as route as by oral needed for needed for route as 90 days. 90 days. needed for 90 days. trazodone trazodone No trazodone [facility] 50 mg 50 mg 50 mg Medical tablet TAKE tablet TAKE tablet 1 TABLET BY 1 TABLET BY TAKE 1 MOUTH MOUTH TABLET BY EVERYDAY AT EVERYDAY AT MOUTH BEDTIME BEDTIME EVERYDAY AT BEDTIME triamcinolo triamcinolo No triamcinol [facility] ne ne one [facility] acetonide acetonide acetonide 0.1 % 0.1 % 0.1 % topical topical topical cream APPLY cream APPLY cream 1 1 APPLY 1 APPLICATION APPLICATION APPLICATIO (S) EVERY (S) EVERY N(S) EVERY DAY BY DAY BY DAY BY TOPICAL TOPICAL TOPICAL ROUTE ROUTE ROUTE NEEDED NEEDED NEEDED atorvastati atorvastati No atorvastat [facility] n 80 mg n 80 mg in 80 mg Medic al tablet TAKE tablet TAKE tablet 1 TABLET BY 1 TABLET BY TAKE 1 MOUTH EVERY MOUTH EVERY TABLET BY DAY DAY MOUTH EVERY DAY ergocalcife ergocalcife No ergocalcif [facility] (vitamin (vitamin (vitamin D2) 1,250 D2) 1,250 D2) 1,250 mcg (50,000 mcg (50,000 mcg unit) unit) (50,000 capsule capsule unit) TAKE 1 TAKE 1 capsule CAPSULE BY CAPSULE BY TAKE 1 MOUTH ONE MOUTH ONE CAPSULE BY TIME PER TIME PER MOUTH ONE WEEK FOR 90 WEEK FOR 90 TIME PER DAYS DAYS WEEK FOR 90 DAYS escitalopra escitalopra No escitalopr [facility] m 20 mg m 20 mg am 20 mg Medic al tablet TAKE tablet TAKE tablet 1 TABLET BY 1 TABLET BY TAKE 1 MOUTH EVERY MOUTH EVERY TABLET BY DAY DAY MOUTH EVERY DAY Farxiga 10 [facility] 10 No Farxiga 10 [facility] mg tablet mg tablet mg tablet Medical TAKE 1 TAKE 1 TAKE 1 TABLET BY TABLET BY TABLET BY MOUTH EVERY MOUTH EVERY MOUTH DAY DAY EVERY DAY folic acid folic acid No folic acid [facility] 1 mg tablet 1 mg tablet 1 mg M edical TAKE 1 TAKE 1 tablet TABLET BY TABLET BY TAKE 1 MOUTH EVERY MOUTH EVERY TABLET BY DAY DAY MOUTH DIRECTED DIRECTED EVERY DAY DIRECTED hydrocodone hydrocodone No hydrocodon [facility] 5 5 e 5 [facility] mg-acetamin mg-acetamin mg-acetami ophen 325 ophen 325 nophen 325 mg tablet mg tablet mg tablet TAKE 1 TAKE 1 TAKE 1 TABLET BY TABLET BY TABLET BY MOUTH EVERY MOUTH EVERY MOUTH 12 HOURS 12 HOURS EVERY 12 NEEDED FOR NEEDED FOR HOURS 30 DAYS 30 DAYS NEEDED FOR 30 DAYS methocarbam methocarbam No methocarba [facility] ol 500 mg ol 500 mg mol 500 mg Medical tablet TAKE tablet TAKE tablet 1 TABLET BY 1 TABLET BY TAKE 1 MOUTH EVERY MOUTH EVERY TABLET BY DAY FOR 30 DAY FOR 30 MOUTH DAYS DAYS EVERY DAY FOR 30 DAYS montelukast montelukast No 1 Q1D montelukas [facility] 10 mg 10 mg t 10 mg Medical tablet Take tablet Take tablet 1 tablet 1 tablet Take 1 every day every day tablet by oral by oral every day route as route as by oral directed directed route as for 30 for 30 directed days. days. for 30 days. pregabalin pregabalin No pregabalin [facility] 100 mg 100 mg 100 mg Medical capsule capsule capsule TAKE 1 TAKE 1 TAKE 1 CAPSULE BY CAPSULE BY CAPSULE BY MOUTH TWICE MOUTH TWICE MOUTH A DAY A DAY TWICE A DAY solifenacin solifenacin No solifenaci [facility] 10 mg 10 mg n 10 mg Medical tablet TAKE tablet TAKE tablet 1 TABLET BY 1 TABLET BY TAKE 1 MOUTH EVERY MOUTH EVERY TABLET BY DAY DAY MOUTH EVERY DAY terbinafine terbinafine No terbinafin [facility] HCl 250 mg HCl 250 mg e HCl 250 Medical tablet TAKE tablet TAKE mg tablet 1 TABLET BY 1 TABLET BY TAKE 1 MOUTH EVERY MOUTH EVERY TABLET BY DAY DAY MOUTH EVERY DAY tramadol 50 tramadol 50 No tramadol [facility] mg tablet mg tablet 50 mg Medi pia TAKE 1 TAKE 1 tablet TABLET BY TABLET BY TAKE 1 MOUTH EVERY MOUTH EVERY TABLET BY DAY DAY MOUTH NEEDED FOR NEEDED FOR EVERY DAY 90 DAYS 90 DAYS NEEDED FOR 90 DAYS trazodone trazodone No trazodone [facility] 50 mg 50 mg 50 mg Medical tablet TAKE tablet TAKE tablet 1 TABLET BY 1 TABLET BY TAKE 1 MOUTH MOUTH TABLET BY EVERYDAY AT EVERYDAY AT MOUTH BEDTIME BEDTIME EVERYDAY AT BEDTIME triamcinolo triamcinolo No triamcinol [facility] ne ne one [facility] acetonide acetonide acetonide 0.1 % 0.1 % 0.1 % topical topical topical cream APPLY cream APPLY cream 1 1 APPLY 1 APPLICATION APPLICATION APPLICATIO (S) EVERY (S) EVERY N(S) EVERY DAY BY DAY BY DAY BY TOPICAL TOPICAL TOPICAL ROUTE ROUTE ROUTE NEEDED NEEDED NEEDED atorvastati atorvastati No atorvastat [facility] n 80 mg n 80 mg in 80 mg Medic al tablet TAKE tablet TAKE tablet 1 TABLET BY 1 TABLET BY TAKE 1 MOUTH EVERY MOUTH EVERY TABLET BY DAY DAY MOUTH EVERY DAY clindamycin clindamycin No clindamyci [facility] HCl 150 mg HCl 150 mg n HCl 150 Medical capsule capsule mg capsule TAKE 1 TAKE 1 TAKE 1 CAPSULE BY CAPSULE BY CAPSULE BY MOUTH FOUR MOUTH FOUR MOUTH FOUR TIMES A DAY TIMES A DAY TIMES A DAY ergocalcife ergocalcife No ergocalcif [facility] (vitamin (vitamin (vitamin D2) 1,250 D2) 1,250 D2) 1,250 mcg (50,000 mcg (50,000 mcg unit) unit) (50,000 capsule capsule unit) TAKE 1 TAKE 1 capsule CAPSULE BY CAPSULE BY TAKE 1 MOUTH ONE MOUTH ONE CAPSULE BY TIME PER TIME PER MOUTH ONE WEEK FOR 90 WEEK FOR 90 TIME PER DAYS DAYS WEEK FOR 90 DAYS escitalopra escitalopra No escitalopr [facility] m 20 mg m 20 mg am 20 mg Medic al tablet TAKE tablet TAKE tablet 1 TABLET BY 1 TABLET BY TAKE 1 MOUTH EVERY MOUTH EVERY TABLET BY DAY DAY MOUTH EVERY DAY Farxiga 10 Farxiga 10 No Farxiga 10 [facility] mg tablet mg tablet mg tablet Medical TAKE 1 TAKE 1 TAKE 1 TABLET BY TABLET BY TABLET BY MOUTH EVERY MOUTH EVERY MOUTH DAY DAY EVERY DAY folic acid folic acid No 1 Q1D folic acid [facility] 1 mg tablet 1 mg tablet 1 mg M edical Take 1 Take 1 tablet tablet tablet Take 1 every day every day tablet by oral by oral every day route as route as by oral directed directed route as for 90 for 90 directed days. days. for 90 days. hydrocodone hydrocodone No hydrocodon [facility] 5 5 e 5 Medical mg-acetamin mg-acetamin mg-acetami ophen 325 ophen 325 nophen 325 mg tablet mg tablet mg tablet TAKE 1 TAKE 1 TAKE 1 TABLET BY TABLET BY TABLET BY MOUTH EVERY MOUTH EVERY MOUTH 12 HOURS 12 HOURS EVERY 12 NEEDED FOR NEEDED FOR HOURS 30 DAYS 30 DAYS NEEDED FOR 30 DAYS magnesium magnesium No 1 Q1D magnesium [facility] 250 mg (as 250 mg (as 250 mg (as Medical magnesium magnesium magnesium oxide) oxide) oxide) tablet Take tablet Take tablet 1 tablet 1 tablet Take 1 every day every day tablet by oral by oral every day route for route for by oral 15 days. 15 days. route for 15 days. methocarbam methocarbam No methocarba [facility] ol 500 mg ol 500 mg mol 500 mg Medical tablet TAKE tablet TAKE tablet 1 TABLET BY 1 TABLET BY TAKE 1 MOUTH EVERY MOUTH EVERY TABLET BY DAY DAY MOUTH EVERY DAY pregabalin pregabalin No pregabalin [facility] 100 mg 100 mg 100 mg Medical capsule capsule capsule TAKE 1 TAKE 1 TAKE 1 CAPSULE BY CAPSULE BY CAPSULE BY MOUTH TWICE MOUTH TWICE MOUTH A DAY A DAY TWICE A DAY solifenacin solifenacin No solifenaci [facility] 10 mg 10 mg n 10 mg Medical tablet TAKE tablet TAKE tablet 1 TABLET BY 1 TABLET BY TAKE 1 MOUTH EVERY MOUTH EVERY TABLET BY DAY DAY MOUTH EVERY DAY sulfamethox sulfamethox No sulfametho [facility] azole 800 azole 800 xazole 800 Medical mg-trimetho mg-trimetho mg-trimeth prim 160 mg prim 160 mg oprim 160 tablet TAKE tablet TAKE mg tablet 1 TABLET BY 1 TABLET BY TAKE 1 MOUTH EVERY MOUTH EVERY TABLET BY 12 HOURS 12 HOURS MOUTH FOR 5 DAYS FOR 5 DAYS EVERY 12 HOURS FOR 5 DAYS terbinafine terbinafine No terbinafin [facility] HCl 250 mg HCl 250 mg e HCl 250 Medical tablet TAKE tablet TAKE mg tablet 1 TABLET BY 1 TABLET BY TAKE 1 MOUTH EVERY MOUTH EVERY TABLET BY DAY DAY MOUTH EVERY DAY tramadol 50 tramadol 50 No tramadol [facility] mg tablet mg tablet 50 mg Medi pia TAKE 1 TAKE 1 tablet TABLET BY TABLET BY TAKE 1 MOUTH EVERY MOUTH EVERY TABLET BY DAY DAY MOUTH NEEDED FOR NEEDED FOR EVERY DAY 90 DAYS 90 DAYS NEEDED FOR 90 DAYS trazodone trazodone No trazodone [facility] 50 mg 50 mg 50 mg Medical tablet TAKE tablet TAKE tablet 1 TABLET BY 1 TABLET BY TAKE 1 MOUTH MOUTH TABLET BY EVERYDAY AT EVERYDAY AT MOUTH BEDTIME BEDTIME EVERYDAY AT BEDTIME triamcinolo triamcinolo No triamcinol [facility] ne ne one [facility] acetonide acetonide acetonide 0.1 % 0.1 % 0.1 % topical topical topical cream APPLY cream APPLY cream 1 1 APPLY 1 APPLICATION APPLICATION APPLICATIO (S) EVERY (S) EVERY N(S) EVERY DAY BY DAY BY DAY BY TOPICAL TOPICAL TOPICAL ROUTE ROUTE ROUTE NEEDED NEEDED NEEDED Immunizations Ordered Immunization Filled Immunization Date Status Commen ts Source Name Name Tdap Tdap 2021-01-31 Completed [facility] pneum[facility] pneumococcal 2019-02-14 Completed [facility] polysaccharide PPV23 polysaccharide 00:00:00 [facility] pneumococcal pneumococcal 2018-10-08 Completed [facility] polysaccharide PPV23 polysaccharide 00:00:00 [facility] PPV[facility] pneumococcal pneumococcal Unknown Com[facility] polysaccharide PPV23 polysaccharide PPV23 pneumococcal pneumococcal Unknown Completed [facility] polysaccharide PPV23 polysaccharide PPV23 Tdap Tdap Unknown Completed [facility] pneumococcal pneumococcal Unknown Completed [facility] polysaccharide PPV23 polysaccharide PPV23 pneumococcal pneumococcal Unknown Completed [facility] polysaccharide PPV23 polysaccharide PPV23 Tdap Tdap Unknown Completed [facility] pneumococcal pneumococcal Unknown Completed [facility] polysaccharide PPV23 polysaccharide PPV23 pneumococcal pneumococcal Unknown Completed [facility] polysaccharide PPV23 polysaccharide PPV23 Tdap Tdap Unknown Completed [facility] pneumococcal Unknown Com[facility] polysaccharide PPV23 polysaccharide PPV23 pneumococcal pneumococcal Unknown Completed [facility] polysaccharide PPV23 polysaccharide PPV23 Tdap Tdap Unknown Completed [facility] pneumococcal pneumococcal Unknown Com[facility] polysaccharide PPV23 polysaccharide PPV23 pneumococcal pneumococcal Unknown Completed [facility] polysaccharide PPV23 polysaccharide PPV23 Tdap Tdap Unknown Completed [facility] pneumococcal pneumococcal Unknown Com[facility] polysaccharide PPV23 polysaccharide PPV23 pneumococcal pneumococcal Unknown Completed [facility] polysaccharide PPV23 polysaccharide PPV23 Tdap Tdap Unknown Completed [facility] pneumococcal pneumococcal Unknown Com[facility] polysaccharide PPV23 polysaccharide PPV23 pneumococcal pneumococcal Unknown Completed [facility] polysaccharide PPV23 polysaccharide PPV23 Tdap Tdap Unknown Completed [facility] pneumococcal pneumococcal Unknown Completed [facility] polysaccharide PPV23 polysaccharide PPV23 pneumococcal pneumococcal Unknown Completed [facility] polysaccharide PPV23 polysaccharide PPV23 Tdap Tdap Unknown Completed [facility] pneumococcal pneumococcal Unknown Completed [facility] polysaccharide PPV23 polysaccharide PPV23 pneumococcal pneumococcal Unknown Completed [facility] polysaccharide PPV23 polysaccharide PPV23 Tdap Tdap Unknown Completed [facility] pneumococcal pneumococcal Unknown Completed [facility] polysaccharide PPV23 polysaccharide PPV23 pneumococcal pneumococcal Unknown Completed [facility] polysaccharide PPV23 polysaccharide PPV23 Tdap Tdap Unknown Completed [facility] Vital Signs Vital Name Observation Time Observation Value Comments Source BP Diastolic 2022-08-04 00:00:00 68 mm[Hg] [facility] Height 2022-08-04 00:00:00 66 [in_i] [facility] BMI (Body Mass 2022-08-04 00:00:00 29.3 kg/m2 [facility]) BP Systolic 2022-08-04 00:00:00 110 mm[Hg] [facility] Body Weight 2022-08-04 00:00:00 2902.4 [oz_av] [facility] BP Diastolic 2022-07-21 00:00:00 70 mm[Hg] [facility] Height 2022-07-21 00:00:00 66 [in_i] [facility] BMI (Body Mass 2022-07-21 00:00:00 29.6 kg/m2 [facility]) BP Systolic 2022-07-21 00:00:00 120 mm[Hg] Daisy [facility] Body Weight 2022-07-21 00:00:00 2931.2 [oz_av] [facility] BP Diastolic 2022-01-20 00:00:00 60 mm[Hg] [facility] Height 2022-01-20 00:00:00 66 [in_i] [facility] BMI (Body Mass 2022-01-20 00:00:00 32 kg/m2 [facility]) BP Systolic 2022-01-20 00:00:00 110 mm[Hg] Daisy [facility] Body Weight 2022-01-20 00:00:00 3172 [oz_av] [facility] BP Diastolic 2022-01-06 00:00:00 78 mm[Hg] [facility]ia Pio [facility] Height 2022-01-06 00:00:00 66 [in_i] Daisy Suero edical BMI (Body Mass 2022-01-06 00:00:00 31.7 kg/m2 [facility] Index) BP Systolic 2022-01-06 00:00:00 120 mm[Hg] Aleahia Pio [facility] Body Weight 2022-01-06 00:00:00 3138 [oz_av] [facility] Height 2021-10-17 00:00:00 66 [in_i] [facility] BMI (Body Mass 2021-10-17 00:00:00 32.8 kg/m2 [facility]) Body Weight 2021-10-17 00:00:00 3248 [oz_av] [facility] Height 2021-10-15 00:00:00 67 [in_i] [facility] BMI (Body Mass 2021-10-15 00:00:00 31.8 kg/m2 [facility] Index) Sports Medicine Body Weight 2021-10-15 00:00:00 203 [lb_av] [facility] BP Diastolic 2021-10-01 00:00:00 82 mm[Hg] [facility] Height 2021-10-01 00:00:00 66 [in_i] Daisy [facility] BMI (Body Mass 2021-10-01 00:00:00 32.8 kg/m2 [facility]) BP Systolic 2021-10-01 00:00:00 138 mm[Hg] Daisy [facility] Body Weight 2021-10-01 00:00:00 3256 [oz_av] [facility] BP Diastolic 2021-07-05 00:00:00 60 mm[Hg] [facility] Height 2021-07-05 00:00:00 66 [in_i] [facility] BMI (Body Mass 2021-07-05 00:00:00 32.8 kg/m2 [facility]) BP Systolic 2021-07-05 00:00:00 126 mm[Hg] [facility] Body Weight 2021-07-05 00:00:00 3248 [oz_av] [facility] BP Diastolic 2021-06-19 00:00:00 88 mm[Hg] [facility] Height 2021-06-19 00:00:00 66 [in_i] [facility] BMI (Body Mass 2021-06-19 00:00:00 32.8 kg/m2 [facility]) BP Systolic 2021-06-19 00:00:00 130 mm[Hg] [facility] Body Weight 2021-06-19 00:00:00 3248 [oz_av] [facility] BP Diastolic 2021-03-21 00:00:00 84 mm[Hg] [facility] Height 2021-03-21 00:00:00 66 [in_i] [facility] BMI (Body Mass 2021-03-21 00:00:00 31.2 kg/m2 [facility] Index) BP Systolic 2021-03-21 00:00:00 126 mm[Hg] Daisy jarrett Body Weight 2021-03-21 00:00:00 3088 [oz_av] [facility] Procedures Procedure Date / Time Performing Clinician Source Performed XR, hip + pelvis, 2021-10-15 00:00:00 Susannah Ort hopedic unilateral, 2 or 3 view [facility] RADEX SPI LUMBOSAC 2/3 2021-10-15 00:00:00 Jimmy perrin Orthopedic VIEWS Sports Medicine Procedure on Finger 2021-07-28 00:00:00 [facility] Unlisted Procedure Stomach 2020-08-30 00:00:00 [facility] Laparoscopic Sleeve 2020-08-29 00:00:00 [facility] Gastrectomy Knee Arthroscopy/surgery 2020-03-28 00:00:00 Brenda finnegan Medical Shoulder Joint Surgery 2018-02-27 00:00:00 [facility] Cholecystectomy 2013-03-30 00:00:00 [facility] (Gallbladder) Procedure on Bladder [facility] Unlisted Px Neck/thorax [facility] edical Carpal Tunnel Surgery [facility] Med ical Hysterectomy (Ovaries [facility] Remain) Tubal Ligation [facility] Plan of Care Planned Activity Planned Date Details Comments Source Diagnostic Test 2022-07-21 vitamin D, [facility] Pending 00:00:00 25-hydroxy, total, serum [code = vitamin D, 25-hydroxy, total, serum] Diagnostic Test 2022-07-21 HbA1c (hemoglobin [facility] Pending 00:00:00 A1c), blood [code = HbA1c (hemoglobin A1c), blood] Diagnostic Test 2022-07-21 lipid panel, serum [facility] Pending 00:00:00 [code = lipid panel, serum] Diagnostic Test 2022-07-21 Grapefruit IgE Ab [facility] Pending 00:00:00 [Units/volume] in Serum [code = 6131-7] Diagnostic Test 2022-07-21 Pyridoxine congeners [facility] Pending 00:00:00 [Mass/volume] in Serum or Plasma [code = 2901-7] Diagnostic Test 2022-07-21 TSH, serum or plasma [facility] Pending 00:00:00 [code = TSH, serum or plasma] Diagnostic Test 2022-07-21 microalbumin/creatini [facility] Pending 00:00:00 ne, mass ratio, urine [code = microalbumin/creatini ne, mass ratio, urine] Diagnostic Test 2022-07-21 toxicology screen, [facility] Pending 00:00:00 urine [code = toxicology screen, urine] Future Appointment 2022-11-04 Brenda Amor [facility] 10:15:[address]; , [place] [address] Future Appointment 2022-11-04 Aston Escobar [facility] 00:00:[address]; , [place] [address] Encounters Start End Encounter Admission Attending Care Care Encounter Source Date/Time Date/Time Type Type Clinicians Facility Department ID 2021-01-28 Emergency [facility] [id number] [facility] 2022-08-04 Outpatient GC_SEFP_Riv PRIV PRIV [id number] [facility] 00:00:00 00:00:00 era_A [id number] Medica l 2022-08-04 2022-08-04 Aston Suero [facility]IV [facility] - [facility] 08 [facility] 00:00:00 00:00:00 [facility] maricarmen islas MD: [address] GC_SEFP_FM_ [address] [place] [address], [place] [address] , Ph. 2022-07-22 2022-07-22 Outpatient GC_SEFP_Riv PRIV PRIV [id number] [facility] 00:00:00 00:00:00 era_A [id number] Medica l 2022-07-21 2022-07-21 Outpatient GC_SEFP_Riv PRIV PRIV [id number] [facility] 00:00:00 00:00:00 era_A [id number] Medica l 2022-07-21 2022-07-21 Aston Suero [facility] - [facility] 24 [facility] 00:00:00 00:00:00 [facility] maricarmen islas MD: 676 GC_SEFP_FM_ [address] [place] [address], [place] [address] , Ph. 2022-03-13 2022-03-13 Outpatient GC_SEFP_Riv PRIV PRIV [id number] [facility] 00:00:00 00:00:00 era_A [id number] Medica l 2022-01-20 2022-01-20 Outpatient GC_SEFP_Riv PRIV PRIV [id number] [facility] 00:00:00 00:00:00 era_A [id number] Medica l 2022-01-20 2022-01-20 Aston Suero [facility] - [facility] 00:00:00 00:00:00 [facility] mariacrmen islas MD: 676 GC_SEFP_FM_ [address], [place] [address] , Ph. 2022-01-06 2022-01-06 Outpatient GC_SEFP_Riv PRIV PRIV 109 [id number] [facility] 00:00:00 00:00:00 era_A [id number] Medica l 2022-01-06 2022-01-06 Aston Suero [facility]IV [facility] - [facility] 00:00:00 00:00:00 [facility] maricarmen islas MD: 676 GC_SEFP_FM_ [address], [place] [address] , Ph. 2021-10-18 2021-10-18 Outpatient GC_SEFP_Riv PRIV PRIV [id number] [facility] 11:02:00 11:02:00 era_A [id number] Medica l 2021-10-17 2021-10-17 Outpatient GC_SEFP_Riv PRIV PRIV [id number] [facility] 01:11:00 01:11:00 era_A [id number] Medica l 2021-10-17 2021-10-17 Aston Sureo PRIV MS - [facility] 21 [facility] 00:00:00 00:00:00 [facility] maricarmen islas MD: 676 GC_SEFP_FM_ [address], [place] [address] , Ph. 2021-10-17 2021-10-17 Outpatient [facility] PRIV [id number] 00:00:00 00:00:00 , Aston Pio [id number] 2021-10-15 2021-10-15 Outpatient FOG_A_Provi AOSM AOSM [id number] [facility] 04:26:00 04:26:00 janelle [id number] Orthop e dic Sports Medicin e 2021-10-15 2021-10-15 Fanny R AOSM [place] - Ortho [id number] [facility] 00:00:00 00:00:00 MD Kannan: Keke Pickett - Orthope [address] FOG_Ofc dic [facility] Spor [facility], [place] [address] , Ph. [phone] 2021-10-15 2021-10-15 Outpatient Fanny Brunner AOSM AOSM psychologist [id number] 00:00:00 00:00:00 R [id number] 2021-10-11 2021-10-11 Outpatient GC_SEFP_Riv PRIV PRIV [id number] [facility] 03:30:00 03:30:00 era_A [id number] Medica l 2021-10-10 2021-10-10 Outpatient FOG_A_Provi AOSM AOSM [id number] [facility] 04:50:00 04:50:00 janelle [id number] Orthop e dic Sports Medicin e 2021 2021 Outpatient FOG_A_Provi AOSM AOSM [id number] [facility] 11:47:00 11:47:00 janelle [id number] Orthop e dic Sports Medicin e 2021-10-02 2021-10-02 Outpatient GC_SEFP_Riv PRIV PRIV 109 [id number] [facility] 09:07:00 09:07:00 era_A [id number] Medica l 2021-10-01 2021-10-01 Outpatient GC_SEFP_Riv PRIV PRIV 109 [id number] [facility] 11:20:00 11:20:00 era_A [id number] Medica l 2021-10-01 2021-10-01 Aston Suero PRIV [facility] - [facility] 05 [facility] 00:00:00 00:00:00 [facility] maricarmen islas MD: 676 GC_SEFP_FM_ [address] [place] [address], [place] [address] , Ph. 2021-10-01 2021-10-01 Outpatient [facility] PRIV PRIV [id number] 00:00:00 00:00:00 , Aston Suero [id number] 2021-09-30 2021-09-30 Outpatient GC_SEFP_Riv PRIV PRIV [id number] [facility] 10:12:00 10:12:00 era_A [id number] Medica l 2021-08-24 2021-08-24 Outpatient GC_SEFP_Riv PRIV PRIV 109 [id number] [facility] 02:31:00 02:31:00 era_A [id number] Medica l 2021-07-08 2021-07-08 Outpatient GC_SEFP_Riv PRIV PRIV 109 [id number] [facility] 12:44:00 12:44:00 era_A [id number] Medica l 2021-07-05 2021-07-05 Aston Pio PRIV [facility] - [facility] 08 [facility] 00:00:00 00:00:00 [facility] maricarmen islas MD: 676 GC_SEFP_FM_ [address] [place] [address], [place] [address] , Ph. 2021-07-05 2021-07-05 Outpatient [facility] PRIV PRIV [id number] 00:00:00 00:00:00 , Aston Suero [id number] 2021-06-29 2021-06-29 Outpatient GC_SEFP_Riv PRIV PRIV [id number] [facility] 02:26:00 02:26:00 era_A [id number] Medica l 2021-06-19 2021-06-19 Outpatient GC_SEFP_Riv PRIV PRIV [id number] [facility] 11:44:00 11:44:00 era_A [id number] Medica l 2021-06-19 2021-06-19 Aston Pio PRIV [facility] - [facility] 00:00:00 00:00:00 [facility] maricarmen islas MD: 676 GC_SEFP_FM_ [address] [place] [address], [place] [address] , Ph. 2021-06-19 2021-06-19 Outpatient [facility] PRIV PRIV [id number] 00:00:00 00:00:00 , Aston Suero [id number] 2021-03-26 2021-03-26 Outpatient GC_SEFP_Riv PRIV PRIV [id number] [facility] 10:37:00 10:37:00 era_A [id number] Medica l 2021-03-21 2021-03-21 Outpatient GC_SEFP_Riv PRIV PRIV 109 [id number] [facility] 10:56:00 10:56:00 era_A [id number] Medica l 2021-03-21 2021-03-21 Aston Pio PRIV [facility] - [facility] [id number] [facility] 00:00:00 00:00:00 [facility] maricarmen islas MD: 676 GC_SEFP_FM_ [address], [place] [address] , Ph. 2021-03-21 2021-03-21 Outpatient [facility] PRIV PRIV [id number] 00:00:00 00:00:00 , Aston Suero [id number] 2021-03-20 2021-03-20 Outpatient GC_SEFP_Riv PRIV PRIV [id number] [facility] 11:47:00 11:47:00 era_A [id number] Medica l 2020-09-20 2020-09-22 [id number] [facility] 12:32:00 17:27:00 Rodrigo Cruz [facility] 2020-08-12 2020-08-12 Outpatient GC_SEFP_Riv PRIV PRIV [id number] [facility] 03:47:00 03:47:00 era_A [id number] Medica l 2020-08-07 2020-08-07 Outpatient GC_SEFP_Riv PRIV PRIV 109 [id number] [facility] 12:57:00 12:57:00 era_A [id number] Medica l 2020-08-06 2020-08-06 Outpatient GC_SEFP_Riv PRIV PRIV 109 [id number] [facility] 05:18:00 05:18:00 era_A [id number] Medica l 2020-08-05 2020-08-05 Outpatient PRIV PRIV [id number] [facility] 01:09:00 01:09:00 [id number] Medica l 2020-08-02 2020-08-02 Outpatient GC_SEFP_Riv PRIV PRIV 109 [id number] [facility] 08:08:00 08:08:00 era_A [id number] Medica l 2020-04-19 2020-04-19 Orders Doctor DMITRIY [id number] 00:00:00 00:00:00 Only Unassigned, ANDERSON [id number] [place] [facility] [id number] 2020-04-11 2020-04-11 Outpatient Nghia CORDOVA [facility] [id number] Univers 13:45:00 13:45:00 OCHOA lomeli [facility] 2020-04-11 2020-04-11 Office Berry [facility] [id number] 13:14:01 13:29:01 Visit [facility] [id number] Surgical [id number] Specialti [id number] [address] 2020-04-06 2020-04-06 Outpatient Nghia BRUNNER, [facility] [id number] Univers 12:00:00 12:00:00 [facility] 2020-04-02 2020-04-02 Outpatient Nghia BRUNNER [facility] [id number] Univers 09:15:00 09:15:00 [facility] 2020-03-27 2020-03-27 Outpatient Nghia AGUILAR [facility] [id number] Univers 12:31:32 23:59:00 [facility] 2020-03-14 2020-03-14 Outpatient Nghia AGUILAR, [facility] [id number] [facility] 15:45:00 15:45:00 [facility] 2020-03-02 2020-03-02 Outpatient Nghia CORDOVA [facility] [id number] Univers 09:36:07 23:59:00 [facility] 2018-03-01 2018-03-02 Outpt Diag nullFlavo [facility] [id number] Memoria 13:08:00 05:59:00 Services r Outpatient 00 l Imaging - Brett haseeb Garner [facility] 2018-03-01 2018-03-02 Outpt Diag nullFlavo [facility] [id number] Memoria 13:08:00 05:59:00 Services r Outpatient 00 l Imaging Lorena Garner [facility] 2018-03-01 2018-03-01 Outpatient MICHAEL, [id number]. [id number] 07:08:00 23:59:00 WATSON [id number] PILAR [id number] Results Test Description Test Time Test Comments Results Result Comments Source Microalbumin/Creatinine [Mass Ratio] in Urine 2022-07-23 00: 00:00 Test Item Value Reference Range Interpretation Comme nts album/creat ratio, urine (test code = album/creat 9.3 mg/g creat <3 0.0 ratio, urine) creat.urn.timed/random (test code = 129.0 mg/dL not estab. creat.urn.timed/random) microalbumin,random (test code = microalbumin,random) <1.2 not estab. [facility] panel - Blood by Automated [id number] 00:00:00 Test Item Value Reference Range Interpretation Comments WBC (test code = WBC) 8.1 10 3.7-12.0 RBC (test code = RBC) 3.94 10 3.60-5.50 HGB (test code = HGB) 12.5 g/dL 11.5-15.6 HCT (test code = HCT) 37.3 % 34.5-46.5 MCV (test code = MCV) 94.9 um 80.0-102.0 MCH (test code = MCH) 31.7 pg 25.0-34.1 MCHC (test code = MCHC) 33.4 g/dL 29.0-35.0 RDW (test code = RDW) 13.4 % 10.9-16.9 plt (test code = plt) 312 10 136-392 MPV (test code = MPV) 8.0 um 7.4-11.1 gran % (test code = gran %) 62.7 % 36.0-78.0 lymph % (test code = lymph %) 19.3 % 12.0-48.0 mono % (test code = mono %) 13.4 % 0.0-13.0 H eos % (test code = eos %) 2 % 0-8 baso % (test code = baso %) 3 % 0-2 H gran # (test code = gran #) 5.1 10 1.2-6.8 lymph # (test code = lymph #) 1.6 10 1.2-3.2 mono # (test code = mono #) 1.1 10 0.3-0.8 H eos # (test code = eos #) 0.1 10 0.0-0.2 baso # (test code = baso #) 0.2 10 0.0-0.2 [facility] - [facility] or [id number] 00:00:00 Test Item Value Reference Range Interpretation Comments cholesterol (test code = 132 mg/dL 0-200 cholesterol) triglycerides (test code = 63 mg/dL 10-150 triglycerides) HDL cholesterol (test code = HDL 47 mg/dL >50 L cholesterol) HDL risk factor (test code = HDL 2.8 calc. risk factor) VLDL cholesterol (test code = VLDL 13 calc cholesterol) Cholesterol in LDL [Mass/volume] in 81 mg/dL <100 Serum or Plasma (test code = 2089-1) [facility]Geq[facility]otqs[facility]igta D3+25-Hydroxyvitamin D2 [Mass/volume] in Serum or [id number] 00:00:00 Test Item Value Reference Range Interpretation Comments vitamin D III (test code = vitamin 87.1 NG/mL 32.0-100.0 D III) [facility] - Serum or [id number] 00:00:00 Test Item Value Reference Range Interpretation Comments sodium (test code = 141 mmol/L 136-145 sodium) potassium (test code = 4.3 mmol/L 3.5-5.5 potassium) chloride (test code = 102 mmol/L 98-107 chloride) CO2 (test code = CO2) 32 mmol/ L 23-31 H glucose (test code = 136 mg/dL 70-99 H glucose) BUN (test code = BUN) 16 mg/dL 6-20 creatinine (test code = 0.7 mg/dL 0.5-0.9 creatinine) calcium (test code = 9.7 mg/dL 8.8-10.6 calcium) total protein (test code = 6.6 g/dL 6.0-8.3 total protein) albumin (test code = 4.2 g/dL 3.5-5.2 albumin) total bilirubin (test code 0.5 mg/dL 0.0-1.2 = total bilirubin) alkaline phosphatase (test 124 U/L 44-147 code = alkaline phosphatase) AST (SGOT) (test code = 30 U/L 0-32 AST (SGOT)) ALT (SGPT) (test code = 30 U/L 0-33 ALT (SGPT)) globulin (test code = 2.4 g/dL 1.7-3.7 globulin) A/G ratio (test code = A/G 1.8 calc. 1.1-2.9 ratio) BUN/creatinine ratio (test 22.9 calc 10.0-28.0 code = BUN/creatinine ratio) eGFR non- 90.119 >60.000 (test code = eGFR mL/min/1.73A? non-) eGFR 108.143 >60.000 (test code = eGFR mL/min/1.73A? haitian) [facility] [Units/volume] in Serum or [id number] 00:00:00 Test Item Value Reference Range Interpretation Comments TSH (test code = TSH) 1.860 uIU/mL 0.178-4.530 [facility] MedicalHemoglobin A1c/Hemoglobin.total in [id number] 00:00:00 Test Item Value Reference Range Interpretation Comments Hemoglobin A1c/Hemoglobin.total in 7.0 % 4.0-5.6 H Blood (test code = 4548-4) [facility] MedicalCBC panel - Blood by Automated [id number] 00:00:00 Test Item Value Reference Range Interpretation Comments WBC (test code = WBC) 7.3 10 3.7-12.0 RBC (test code = RBC) 4.28 10 3.60-5.50 HGB (test code = HGB) 13.4 g/dL 11.5-15.6 HCT (test code = HCT) 41.1 % 34.5-46.5 MCV (test code = MCV) 95.8 um 80.0-102.0 MCH (test code = MCH) 31.3 pg 25.0-34.1 MCHC (test code = MCHC) 32.6 g/dL 29.0-35.0 RDW (test code = RDW) 14.0 % 10.9-16.9 plt (test code = plt) 304 10 136-392 MPV (test code = MPV) 7.7 um 7.4-11.1 gran % (test code = gran %) 59.4 % 36.0-78.0 lymph % (test code = lymph %) 30.6 % 12.0-48.0 mono % (test code = mono %) 7.6 % 0.0-13.0 eos % (test code = eos %) 2 % 0-8 baso % (test code = baso %) 1 % 0-2 gran # (test code = gran #) 4.3 10 1.2-6.8 lymph # (test code = lymph #) 2.2 10 1.2-3.2 mono # (test code = mono #) 0.6 10 0.3-0.8 eos # (test code = eos #) 0.1 10 0.0-0.2 baso # (test code = baso #) 0.0 10 0.0-0.2 [facility] 2000 panel - Serum or [id number] 00:00:00 Test Item Value Reference Range Interpretation Comments sodium (test code = 141 mmol/L 136-145 sodium) potassium (test code = 4.3 mmol/L 3.5-5.5 potassium) chloride (test code = 102 mmol/L 98-107 chloride) CO2 (test code = CO2) 28 mmol/ L 23-27 H glucose (test code = 132 mg/dL 70-99 H glucose) BUN (test code = BUN) 15 mg/dL 6-20 creatinine (test code = 0.8 mg/dL 0.5-0.9 creatinine) calcium (test code = 9.8 mg/dL 8.8-10.6 calcium) total protein (test code = 7.0 g/dL 6.0-8.3 total protein) albumin (test code = 4.5 g/dL 3.5-5.2 albumin) total bilirubin (test code 0.7 mg/dL 0.0-1.2 = total bilirubin) alkaline phosphatase (test 136 U/L 44-147 code = alkaline phosphatase) AST (SGOT) (test code = 27 U/L 0-32 AST (SGOT)) ALT (SGPT) (test code = 23 U/L 0-33 ALT (SGPT)) globulin (test code = 2.5 g/dL 1.7-3.7 globulin) A/G ratio (test code = A/G 1.8 calc. 1.1-2.9 ratio) BUN/creatinine ratio (test 18.8 calc 10.0-28.0 code = BUN/creatinine ratio) eGFR non- 77.249 >60.000 (test code = eGFR mL/min/1.73A? non-) eGFR 92.699 >60.000 (test code = eGFR mL/min/1.73A? haitian) [facility] MedicalMagnesium [Mass/volume] in Serum or [id number] 00:00:00 Test Item Value Reference Range Interpretation Comments magnesium (test code = magnesium) 1.7 mg/dL 1.6-2.6 [facility] [id number] 00:00:00 Test Item Value Reference Range Interpretation Comments WBC (test code = WBC) 7.3 10 3.7-12.0 RBC (test code = RBC) 4.28 10 3.60-5.50 HGB (test code = HGB) 13.4 g/dL 11.5-15.6 HCT (test code = HCT) 41.1 % 34.5-46.5 MCV (test code = MCV) 95.8 um 80.0-102.0 MCH (test code = MCH) 31.3 pg 25.0-34.1 MCHC (test code = MCHC) 32.6 g/dL 29.0-35.0 RDW (test code = RDW) 14.0 % 10.9-16.9 plt (test code = plt) 304 10 136-392 MPV (test code = MPV) 7.7 um 7.4-11.1 gran % (test code = gran %) 59.4 % 36.0-78.0 lymph % (test code = lymph %) 30.6 % 12.0-48.0 mono % (test code = mono %) 7.6 % 0.0-13.0 eos % (test code = eos %) 2 % 0-8 baso % (test code = baso %) 1 % 0-2 gran # (test code = gran #) 4.3 10 1.2-6.8 lymph # (test code = lymph #) 2.2 10 1.2-3.2 mono # (test code = mono #) 0.6 10 0.3-0.8 eos # (test code = eos #) 0.1 10 0.0-0.2 baso # (test code = baso #) 0.0 10 0.0-0.2 [facility] - Serum or [id number] 00:00:00 Test Item Value Reference Range Interpretation Comments sodium (test code = 141 mmol/L 136-145 sodium) potassium (test code = 4.3 mmol/L 3.5-5.5 potassium) chloride (test code = 102 mmol/L 98-107 chloride) CO2 (test code = CO2) 28 mmol/ L 23-27 H glucose (test code = 132 mg/dL 70-99 H glucose) BUN (test code = BUN) 15 mg/dL 6-20 creatinine (test code = 0.8 mg/dL 0.5-0.9 creatinine) calcium (test code = 9.8 mg/dL 8.8-10.6 calcium) total protein (test code = 7.0 g/dL 6.0-8.3 total protein) albumin (test code = 4.5 g/dL 3.5-5.2 albumin) total bilirubin (test code 0.7 mg/dL 0.0-1.2 = total bilirubin) alkaline phosphatase (test 136 U/L 44-147 code = alkaline phosphatase) AST (SGOT) (test code = 27 U/L 0-32 AST (SGOT)) ALT (SGPT) (test code = 23 U/L 0-33 ALT (SGPT)) globulin (test code = 2.5 g/dL 1.7-3.7 globulin) A/G ratio (test code = A/G 1.8 calc. 1.1-2.9 ratio) BUN/creatinine ratio (test 18.8 calc 10.0-28.0 code = BUN/creatinine ratio) eGFR non- 77.249 >60.000 (test code = eGFR mL/min/1.73A? non-) eGFR 92.699 >60.000 (test code = eGFR mL/min/1.73A? haitian) [facility] [Mass/volume] in Serum or [id number] 00:00:00 Test Item Value Reference Range Interpretation Comments magnesium (test code = magnesium) 1.7 mg/dL 1.6-2.6 [facility] [Enzymatic activity/volume] in Serum or Plasma 2021-10-04 00:00:00 Test Item Value Reference Range Interpretation Comments CK (test code = CK) 49 U/L 26-192 [facility] Medicalinflammation panel, serum or [id number] 00:00:00 Test Item Value Reference Range Interpretation Comments ESR (sed-rate) (test 9 mm/h <31 code = ESR (sed-rate)) YEYO screen (test code negative See_Comment [Auto mated message] = YEYO screen) The system [employer] generated this result transmitted ref erence range: neg=<1:8 0. The reference range was not used to interpr et this result as normal/abnormal . CRP (test code = CRP) <0.3 <0.5 rheumatoid (rf) titer <10 <14 (test code = rheumatoid (rf) titer) [facility] [id number] 00:00:00 Test Item Value Reference Range Interpretation Comments Hemoglobin A1c/Hemoglobin.total in 7.5 % 4.0-5.6 H Blood (test code = 4548-4) [facility] - Serum or [id number] 00:00:00 Test Item Value Reference Range Interpretation Comments sodium (test code = 140 mmol/L 136-145 sodium) potassium (test code = 4.4 mmol/L 3.5-5.5 potassium) chloride (test code = 102 mmol/L 98-107 chloride) CO2 (test code = CO2) 26 mmol/ L 23-27 glucose (test code = 160 mg/dL 70-99 H glucose) BUN (test code = BUN) 19 mg/dL 6-20 creatinine (test code = 0.8 mg/dL 0.5-0.9 creatinine) calcium (test code = 9.9 mg/dL 8.8-10.6 calcium) total protein (test code = 7.0 g/dL 6.0-8.3 total protein) albumin (test code = 4.5 g/dL 3.5-5.2 albumin) total bilirubin (test code 0.8 mg/dL 0.0-1.2 = total bilirubin) alkaline phosphatase (test 135 U/L 44-147 code = alkaline phosphatase) AST (SGOT) (test code = 28 U/L 0-32 AST (SGOT)) ALT (SGPT) (test code = 31 U/L 0-33 ALT (SGPT)) globulin (test code = 2.5 g/dL 1.7-3.7 globulin) A/G ratio (test code = A/G 1.8 calc. 1.1-2.9 ratio) BUN/creatinine ratio (test 23.8 calc 10.0-28.0 code = BUN/creatinine ratio) eGFR non- 77.505 >60.000 (test code = eGFR mL/min/1.73A? non-) eGFR 93.006 >60.000 (test code = eGFR mL/min/1.73A? haitian) [facility] [Mass/volume] in Serum or [id number] 00:00:00 Test Item Value Reference Range Interpretation Comments magnesium (test code = magnesium) 1.5 mg/dL 1.6-2.6 L [facility] 2000 panel - Serum or [id number] 00:00:00 Test Item Value Reference Range Interpretation Comments sodium (test code = 141 mmol/L 136-145 sodium) potassium (test code = 4.2 mmol/L 3.5-5.5 potassium) chloride (test code = 103 mmol/L 98-107 chloride) CO2 (test code = CO2) 27 mmol/ L 23-27 glucose (test code = 122 mg/dL 70-99 H glucose) BUN (test code = BUN) 15 mg/dL 6-20 creatinine (test code = 0.8 mg/dL 0.5-0.9 creatinine) calcium (test code = 9.8 mg/dL 8.8-10.6 calcium) total protein (test code = 6.6 g/dL 6.0-8.3 total protein) albumin (test code = 4.3 g/dL 3.5-5.2 albumin) total bilirubin (test code 0.7 mg/dL 0.0-1.2 = total bilirubin) alkaline phosphatase (test 118 U/L 44-147 code = alkaline phosphatase) AST (SGOT) (test code = 28 U/L 0-32 AST (SGOT)) ALT (SGPT) (test code = 23 U/L 0-33 ALT (SGPT)) globulin (test code = 2.3 g/dL 1.7-3.7 globulin) A/G ratio (test code = A/G 1.9 calc. 1.1-2.9 ratio) BUN/creatinine ratio (test 18.8 calc 10.0-28.0 code = BUN/creatinine ratio) eGFR non- 77.505 >60.000 (test code = eGFR mL/min/1.73A? non-) eGFR 93.006 >60.000 (test code = eGFR mL/min/1.73A? haitian) [facility] MedicalHemoglobin A1c/Hemoglobin.total in [id number] 00:00:00 Test Item Value Reference Range Interpretation Comments Hemoglobin A1c/Hemoglobin.total in 7.5 % 4.0-5.6 H Blood (test code = 4548-4) [facility] MedicalComprehensive metabolic 2000 panel - Serum or [id number] 00:00:00 Test Item Value Reference Range Interpretation Comments sodium (test code = 141 mmol/L 136-145 sodium) potassium (test code = 4.2 mmol/L 3.5-5.5 potassium) chloride (test code = 103 mmol/L 98-107 chloride) CO2 (test code = CO2) 27 mmol/ L 23-27 glucose (test code = 122 mg/dL 70-99 H glucose) BUN (test code = BUN) 15 mg/dL 6-20 creatinine (test code = 0.8 mg/dL 0.5-0.9 creatinine) calcium (test code = 9.8 mg/dL 8.8-10.6 calcium) total protein (test code = 6.6 g/dL 6.0-8.3 total protein) albumin (test code = 4.3 g/dL 3.5-5.2 albumin) total bilirubin (test code 0.7 mg/dL 0.0-1.2 = total bilirubin) alkaline phosphatase (test 118 U/L 44-147 code = alkaline phosphatase) AST (SGOT) (test code = 28 U/L 0-32 AST (SGOT)) ALT (SGPT) (test code = 23 U/L 0-33 ALT (SGPT)) globulin (test code = 2.3 g/dL 1.7-3.7 globulin) A/G ratio (test code = A/G 1.9 calc. 1.1-2.9 ratio) BUN/creatinine ratio (test 18.8 calc 10.0-28.0 code = BUN/creatinine ratio) eGFR non- 77.505 >60.000 (test code = eGFR mL/min/1.73A? non-) eGFR 93.006 >60.000 (test code = eGFR mL/min/1.73A? haitian) [facility] [id number] 00:00:00 Test Item Value Reference Range Interpretation Comments Hemoglobin A1c/Hemoglobin.total in 7.5 % 4.0-5.6 H Blood (test code = 4548-4) [facility] - Serum or [id number] 00:00:00 Test Item Value Reference Range Interpretation Comments sodium (test code = 140 mmol/L 136-145 sodium) potassium (test code = 4.3 mmol/L 3.5-5.5 potassium) chloride (test code = 101 mmol/L 98-107 chloride) CO2 (test code = CO2) 26 mmol/ L 24-31 glucose (test code = 124 mg/dL 70-99 H glucose) BUN (test code = BUN) 15 mg/dL 6-20 creatinine (test code = 0.6 mg/dL 0.5-0.9 creatinine) calcium (test code = 9.7 mg/dL 8.8-10.6 calcium) total protein (test code = 6.4 g/dL 6.0-8.3 total protein) albumin (test code = 4.2 g/dL 3.5-5.2 albumin) total bilirubin (test code 0.9 mg/dL 0.0-1.2 = total bilirubin) alkaline phosphatase (test 118 U/L 44-147 code = alkaline phosphatase) AST (SGOT) (test code = 26 U/L 0-32 AST (SGOT)) ALT (SGPT) (test code = 19 U/L 0-33 ALT (SGPT)) globulin (test code = 2.2 g/dL 1.7-3.7 globulin) A/G ratio (test code = A/G 1.9 calc. 1.1-2.9 ratio) BUN/creatinine ratio (test 24.8 calc 10.0-28.0 code = BUN/creatinine ratio) eGFR non- 108.021 >60.000 (test code = eGFR mL/min/1.73A? non-) eGFR 129.625 >60.000 (test code = eGFR mL/min/1.73A? haitian) [facility] by Automated [id number] 00:00:00 Test Item Value Reference Range Interpretation Comments WBC (test code = WBC) 7.4 10 3.7-12.0 RBC (test code = RBC) 3.60 10 3.60-5.50 HGB (test code = HGB) 11.6 g/dL 11.5-15.6 HCT (test code = HCT) 35.1 % 34.5-46.5 MCV (test code = MCV) 97.4 um 80.0-102.0 MCH (test code = MCH) 32.1 pg 25.0-34.1 MCHC (test code = MCHC) 32.9 g/dL 29.0-35.0 RDW (test code = RDW) 13.7 % 10.9-16.9 plt (test code = plt) 289 10 136-392 MPV (test code = MPV) 7.5 um 7.4-11.1 gran % (test code = gran %) 65.0 % 36.0-78.0 lymph % (test code = lymph %) 23.4 % 12.0-48.0 mono % (test code = mono %) 8.7 % 0.0-13.0 eos % (test code = eos %) 2 % 0-8 baso % (test code = baso %) 1 % 0-2 gran # (test code = gran #) 4.8 10 1.2-6.8 lymph # (test code = lymph #) 1.7 10 1.2-3.2 mono # (test code = mono #) 0.6 10 0.3-0.8 eos # (test code = eos #) 0.2 10 0.0-0.2 baso # (test code = baso #) 0.0 10 0.0-0.2 [facility] [id number] 15:31:00 Test Item Value Reference Range Interpretation Comments GLUBED (test code = GLUBED) 97 mg/dL 70-110 N [id number] 15:00:00 Test Item Value Reference Range Interpretation Comments GLUBED (test code = GLUBED) 112 mg/dL 70-110 H [id number] 14:57:00 Test Item Value Reference Range Interpretation Comments GLUBED (test code = GLUBED) 93 mg/dL 70-110 N [id number] 11:30:00 Test Item Value Reference Range Interpretation Comments GLUBED (test code = GLUBED) 87 mg/dL 70-110 N [id number] 07:09:00 Test Item Value Reference Range Interpretation Comments GLUBED (test code = GLUBED) 86 mg/dL 70-110 N UR MICROALBUMIN/CREAT [id number] 05:28:00 Test Item Value Reference Range Interpretation Comments UR CREATININE RESULT (test code 144.07 MG/DL 30-125 H = CREATU) UR MICROALBUMIN QUANT (test code 13.2 mg/L 0-20 N = MICALB) UR MICROALB/CREAT RATIO (test 9.2 mg/g cre <30.0 code = MICALB:CRE) [id number] 14:52:00 Test Item Value Reference Range Interpretation Comments GLUBED (test code = GLUBED) 102 mg/dL 70-110 N [id number] 12:21:00 Test Item Value Reference Range Interpretation Comments GLUBED (test code = GLUBED) 116 mg/dL 70-110 H - US RETRO [id number] 10:05:00 [facility] [place] [place] : 1960 Sex: F FAX: Marsha Sullivan MD [phone] [place]: St: [facility] FAX: Aston Olvera [phone] FAX: Flip Johnson MD [phone] FAX: Rodrigo Nuno MD [phone] Name: PAWAN REYES [facility] : 1960 Age/S: 59/F [address] Unit #: [id number] Loc: [place], [place] [address] Acct: [id number] Dis Date: Status: ADM IN PHONE #: [phone] Exam Date: 09/21/2020 0900 FAX #: [phone] Reason: BLOSSOM EXAMS: CPT CODE: [id number] US RETRO LTD 73734 ULTRASOUND: - US RETRO LTD History: Acute kidney [...] identified. No ascites. Impression: No acute abnormality. Uniform perfusion and cortical pattern for the kidneys. Small simple 1.9 cm left lower pole parapelvic cyst or dilated calyceal segment/diverticulum. Location: U 19 at 1005 Reported and signed by: MD Hakan CC: Marsha Ramirez MD; Aston Escobar MD; Flip Ferreira MD; Rodrigo Reynolds MD Technologist: ZULEIKA THIBODEAUX Trnnyrd Date/Time/By: 09/21/2020 (1005) : By: TristianRM61 PAGE 1 SignedReport FAX: Marsha Sullivan MD [phone] [place]: St: ADM FAX: Aston Olvera [phone] FAX: Flip Johnson MD [phone] FAX: Rodrigo Nuno MD [phone] Name: PAWAN REYES [facility] : 1960 Age/S: 59/F [address] [facility] Unit #: [id number] Loc: [place], [place]: [place] [address] Acct: [id number] Dis Date: Status: ADM IN PHONE #: [phone] Exam Date: 09/21/2020 0900 FAX #: [phone] Reason: BLOSSOM EXAMS: CPT CODE: [id number] [facility] L[facility] [address] (Continued) Orig Print D/T: S: 09/21/2020 (1000) PAGE 2 Signed [id number] 08:27:00 Test Item Value Reference Range Interpretation Comments GLUBED (test code = GLUBED) 101 mg/dL 70-110 N COMPREHENSIVE METABOLIC [id number] 07:31:00 Test Item Value Reference Range Interpretation [...] 81 Units/L 50.0-136.0 N code = ALKP) [id number] 07:31:00 Test Item Value Reference Range Interpretation Comments LIPASE (test code = LIP) 635 Units/L 65.0-230.0 H CBC W/AUTO [id number] 07:14:00 Test Item Value Reference Range Interpretation [...] = 0.00 X10 3uL 0.00-0.01 N NRBC#) [id number] 22:16:00 Test Item Value Reference Range Interpretation Comments GLUBED (test code = GLUBED) 101 mg/dL 70-110 N - CT ABD PELVIS W/O [id number] 10:46:00 [facility] [place] [place] : 1960 Sex: F FAX: Aston Guerra Pio [phone] [place]: St: [facility] FAX: Yocasta Gonzalez MD [phone] FAX: Flip Johnson MD [phone] Name: AMYPAWAN MOOREE [facility] : 1960 Age/S: 59/F [address] [facility] Unit: [id number] Loc: E.ERS2 [place], [place] Phys: [place] [address] Acct: [id number] Dis Date: Status: REG ER PHONE #: [phone] Exam Date: 09/20/2020 1040 FAX #: [phone] Reason: s/p gastric bypass september 08 with n/v/pain EXAMS: CPT CODE: [id number] CT ABD PELVIS W/O CONT 06302 EXAM: - CT ABD PELVIS W/O CONT HISTORY: s/p gastric bypass September 08 with n/v/pain Location code:C3 TECHNIQUE: Contrast - No IV contrast was given. Enteric contrast within the distal esophagus/gastric pouch is noted. Noncontrast phase - abdomen and pelvis including all of kidneys Reconstructions - coronal and sagittal planes Automated exposure reduction (Auto mA/Smart mA) was utilized in compliancewith ACR Image Wisely with DLP of 1165 mGy-cm. COMPARISON: None FINDINGS: Statements: Lack of intravenous contrast compromises evaluation of abdominopelvic organs and vasculature. Enteric contrast within the gastric pouch is present. Thoracic: Included images of the lower chest demonstrate no abnormalities. Hepatobiliary: The liver is normal without focal lesion. 4 No biliary dilation. Pancreas: Normal. Spleen: Normal. Adrenals: Normal. Genitourinary: The kidneys are normal. There is no evidence ofhydronephrosis of either kidney. There is no evidence of renal calculus. Evaluation of the bladder is limited, but no obvious bladder abnormality is present. Uterus appears surgically absent. Gastrointestinal: Surgical changes of the stomach are present. There is no surrounding inflammatory change or fluid collection. No bowel obstruction is seen. No extraluminal contrast from the distal esophagus/fundus of the stomach is seen. Distal stomach and proximal PAGE 1 Signed Report (CONTINUED) FAX: Aston Olvera [phone] [place]: St: [facility] FAX: Yocasta Gonzalez MD [phone] FAX: Flip Johnson MD [phone] Name: PAWAN REYES [facility] : 1960 Age/S: 59/F [address] [facility] Unit: [id number] Loc: [address] Phys: [place] [address] Acct: [id number] Dis Date: Status: REG ER PHONE #: [phone] Exam Date: 09/20/2020 1040 FAX #: [phone] Reason: s/pgastric bypass september 08 with n/v/pain EXAMS: CPT CODE: [id number] CT ABD PELVIS W/O CONT 30625 (Continued) small bowel loops are not opacified with contrast. The appendix is normal. Vascular: Atherosclerotic calcifications are seen within the aorta and branch vessels. Lymphatics: No enlarged lymph nodes by CT size criteria. Bones/Soft Tissues: Remote 10% compression fracture at T11-12 is [...] MD Technologist: DEZ CARLISLE Trnscrd Dt/Tm: 09/20/2020 (0086) t.CB5 Orig Print D/T: S: 09/20/2020 (6119 PAGE 2 Signed ReportURINALYSIS COMPLETE 2020-09-20 10:13:00 Test Item Value Reference Range Interpretation [...] code = CGU) Specimen comments: Clean CatchURINALYSIS [id number] 10:11:00 Test Item Value Reference Range Interpretation [...] code = NONE BACU) Specimen comments: Clean [id number] 10:11:00 Test Item Value Reference Range Interpretation Comments TROPONIN-I (test <0.02 NG/ML 0.00-0.06 N REFERENCE R INOCENCIO code = TROPI) TROPONIN I HEA LTHY INDIVIDUALS: <0 .06 ng/mL R/O ISCHE TROY: 0.07 - 0.60 ng/ mL CUT-OFF RANGE F OR AMI: 0.60 - 1.5 ng/m L BASIC METABOLIC [id number] 10:11:00 Test Item Value Reference Range Interpretation [...] 9.0 mg/dl 8.0-10.5 N HEPATIC FUNCTION PANEL [id number] 10:11:00 Test Item Value Reference Range Interpretation [...] 101 Units/L 50.0-136.0 N code = ALKP) [id number] 10:11:00 Test Item Value Reference Range Interpretation Comments LIPASE (test code = LIP) 621 Units/L 65.0-230.0 H CBC W/AUTO [id number] 09:44:00 Test Item Value Reference Range Interpretation [...] = 0.00 X10 3uL 0.00-0.01 N NRBC#) Notes Date/Time Note Provider Source 2020-09-22 14:33:00-00:00 [facility] ([facility]) Clinical Note REPORT#:[id number] REPORT STATUS: Signed DATE:09/22/20 TIME: 1433 PATIENT: PAWAN REYES UNIT #: [id number] ROOM/BED: [place] [address] : [birth year] AGE: 59 SEX: F ATTEND: Harris Reynolds MD ADM AUTHOR: Michael Stubbs MD * ALL edits or amendments must be made on the el [employer]/computer document * Clinical Note Note: Resting - no abd pain REVIEW OF SYSTEMS: GENERAL: No weight gain and/or loss. Denies feve r and chills. EYES: Negative for vision changes and eye irrita tion. EARS, NOSE, THROAT: No oral lesions. No sore thr oat. No ear pain or sinus congestion. CARDIAC: Denies chest pain, diaphoresis, orthopn ea, and palpitations. PULMONARY: Denies shortness of breath, cough, an d hemoptysis. GASTROINTESTINAL: As per HPI. MUSCULOSKELETAL: No muscle pain. No joint abnorm alities. DERMATOLOGIC: No skin rashes. No skin ulceration . PSYCHIATRIC: No depression. No anxiety. NEUROLOGIC: No headache. No dizziness. No numbne ss. No tingling. ENDOCRINE: Negative for polyuria, polydipsia, an d polyphagia. ALLERGIES: No allergic rhinitis. No pruritus. PHYSICAL EXAMINATION: VITAL SIGNS: Stable. GENERAL: The patient is awake, alert, and orient ed x3, and is in no apparent distress. EYES: No pallor and icterus noted. Pupils equal, round, and reactive to light and accommodation. Extraocular muscles intact. EARS, NOSE, THROAT: No oral lesions. No orophary ngeal erythema. Nares patent. NECK: No lymphadenopathy. Supple. HEART: Regular rate and rhythm. S1, S2 heard. LUNGS: Clear to auscultation bilaterally. No whe ezes or crackles. ABDOMEN: Soft. Mild epigastric tenderness. No gu arding. No rigidity. GENITOURINARY AND RECTAL: Deferred. EXTREMITIES: The bilateral l ower extremities are without clubbing, cyanosis, or edema. The bilateral upper extremities are unrem arkable. SKIN: No rashes. No skin ulcerations. NEUROLOGIC: Sensory and motor grossly intact. MUSCULOSKELETAL: No muscle fasciculations and at rophy noted. IMPRESSION: 1. Mild acute pancreatitis. There is lik elihood this could be small bowel leak considering CT is unremarkable. She does have el evated liver function tests which could be part of fatty liver versu s edema in the pancreatic head leading onto liver function test derangement. 2. Mildly elevated liver function tests, fatty liver versus secondary to edema in pancreatic head. 3. Acute kidney injury. 09/22 resolved. at 1434 RPT #:[id number] END OF REPORT 2020-09-22 14:14:00-00:00 [facility] ([facility]) Nephrology Progress Note REPORT#:[id number] REPORT STATUS: Signed DATE:09/22/20 TIME: 1414 PATIENT: PAWAN REYES UNIT #: [id number] ROOM/BED: [place] [address] : [birth year] AGE: 59 SEX: F ATTEND: Harris Reynolds MD ADM AUTHOR: Marsha Ramirez MD * ALL edits or amendments must be made on the [employer]/computer document * Subjective Chief Complaint: N/V, IVV depletion Comments: Seen at 1400. Awake, alert, conversive. No new o r overnight events. HPI unchanged. PMFShx unchanged. ROS unchanged. Objective General VS/I O: Vital Signs: Date Time Temp Pulse Resp B/P B/P Pulse O2 O2 F low FiO2 Mean Ox Delivery Rate 09/22 1100 36.8 62 18 133/64 87.2 98 Room air 09/22 0714 99 Room air 0 21 09/22 0642 36.8 70 18 122/67 84.9 97 Room air 09/22 0358 36.8 66 16 115/73 86.8 98 Room air 09/21 2325 59 98 21 09/21 2319 36.9 60 16 129/64 85.7 98 Room air 09/21 1916 36.7 61 16 121/66 84.5 100 Room air 09/21 1521 36.7 70 18 119/56 77 98 Room air 09/21 1521 96 Room air PATIENT WEIGHT: Weight (lb): Weight (oz): Weight (kg): 89.000 Physical Exam General appearance: alert, awake Head/eyes: normal conjunctiva/sclera, normocepha lic ENT: moist mucous membranes Neck: supple/no meningismus, no JVD Cardiovascular: normal heart sounds, regular rat e and rhythm, no murmur Respiratory: aerating well, clear to auscultatio n, normal breath sounds, symmetric expansion Abdomen: non-tender, normal bowel sounds, soft Genitourinary: no bladder distention Extremities: no edema, no swelling Musculoskeletal: normal inspection Neuro/BALLET PROFESSOR: alert, oriented X 3 Skin: intact Psychiatry: normal mood, normal judgment/insight , normal affect Results Findings/Data: Laboratory Tests 09/22 09/22 09/21 1057 0641 1436 Chemistry POC Glucose (70 - 110 mg/dL) 87 86 102 Laboratory Tests 09/22 0420 Urines Urine Creatinine (30 - 125 MG/DL) 144.07 H Urine Microalbumin (0 - 20 mg/L) 13.2 Microalb/Creat Ratio (<30.0 mg/g cre) 9.2 Diagnosis, Assessment Plan Free Text A P: IMPRESSION: 1. Acute kidney injury. RESOLVING. SCr improved to 1.5. There has been a rise in the serum creatinine from its baseline value of 0.75 to its current level of 2.31. The etiology of the acute kidney injury is intravascular volume de pletion. IV hydration in progress. The patient likely has underlying chronic kidney dis ease from her diabetes and hypertension, though current data does not suppo rt this notion. 2. Chronic kidney disease, stage unknown. Curren tly with protein and blood in the urine without evidence of a urinary tract in fection. 3. Intravascular volume depletion. IV hydration in progress. 4. Proteinuria. Likely underlying diabetic nephr opathy. 5. Hematuria. Likely underlying diabetic nephrop athy. 6. Nausea and vomiting secondary to gastric bypa ss. May need periodic IV infusion, which likely can b e done with her primary care doctor or in my office. 6. Anemia, mild. At risk with recent gastric byp ass surgery. 7. Morbid obesity. 8. Hypokalemia. IV repletion. PLAN: OK to DC Outpatient follow up - card given Electronically Signed by Marsha Ramirez MD on 0 09/22/[address] [facility] #:[id number] END OF REPORT 2020-09-22 11:35:00-00:00 [id number] [facility] and [place] [id number] [place] [address] PATIENT NAME: PAWAN REYES ADMIT DATE: 09/20/20 ACCOUNT NO: [id number] DISCHARGE DATE: 1 ROOM NO: E.208 REPORT TYPE: CONSULTATION REPORT DATE OF : 58 AGE: 60 SEX: F ADMITTING PHYSICIAN:Rodrigo Reynolds MD ATTENDING PHYSICIAN:Rodrigo Reynolds MD CONSULTATION DATE: CONSULTING PHYSICIAN: Michael Stubbs MD GASTROINTESTINAL CONSULT The patient is seen, examined, and interviewed o n 09/21/2020 in ER. REASON FOR CONSULT: 1. Epigastric pain, nausea, and vomiting. Lipase at 635, ALT 91, AST 54. 2. CT abdomen and pelvis without contrast reveal ed surgical changes of the stomach/the patient with gastric bypass surgery done in [place] week ago. HISTORY OF PRESENT ILLNESS: A 59-year-ol d female with significant past medical history as noted below. The patient is currently admitted with epigastric pain. Along with this, she reports some nausea. At th e time of my interview, she seems quite comfortable. Vitals are stable. No d istress. On admission, the patient also had renal failure. Evidently, she h as undergone gastric bypass surgery done in [place] week ago. PAST MEDICAL HISTORY: Diabetes mellitus, hyperte nsion, and dyslipidemia. PAST SURGICAL HISTORY: Bariatric surgery, cholec ystectomy, hysterectomy. FAMILY HISTORY: Diabetes, hypertension, kidney d isease. SOCIAL HISTORY: Denies alcohol. Denies drugs. No tobacco use. MEDICATIONS: Reviewed. ALLERGIES: SULFA. REVIEW OF SYSTEMS: GENERAL: No weight gain and/or loss. Denies feve r and chills. EYES: Negative for vision changes and eye irrita tion. EARS, NOSE, THROAT: No oral lesions. No sore thr oat. No ear pain or sinus congestion. CARDIAC: Denies chest pain, diaphoresis, orthopn ea, and palpitations. PULMONARY: Denies shortness of breath, cough, an d hemoptysis. GASTROINTESTINAL: As per HPI. GENITOURINARY: No dysuria. No discharge. No cady turia. MUSCULOSKELETAL: No muscle pain. No joint abnorm alities. DERMATOLOGIC: No skin rashes. No skin ulceration . PATIENT NAME: PAWAN REYES ACCOUNT #: [id number] PSYCHIATRIC: No depression. No anxiety. NEUROLOGIC: No headache. No dizziness. No numbne ss. No tingling. ENDOCRINE: Negative for polyuria, polydipsia, an d polyphagia. ALLERGIES: No allergic rhinitis. No pruritus. PHYSICAL EXAMINATION: VITAL SIGNS: Stable. GENERAL: The patient is awake, alert, and orient ed x3, and is in no apparent distress. EYES: No pallor and icterus noted. Pupils equal, round, and reactive to light and accommodation. Extraocular muscles intact. EARS, NOSE, THROAT: No oral lesions. No orophary ngeal erythema. Nares patent. NECK: No lymphadenopathy. Supple. HEART: Regular rate and rhythm. S1, S2 heard. LUNGS: Clear to auscultation bilaterally. No whe ezes or crackles. ABDOMEN: Soft. Mild epigastric tenderness. No gu arding. No rigidity. GENITOURINARY AND RECTAL: Deferred. EXTREMITIES: The bilateral l ower extremities are without clubbing, cyanosis, or edema. The bilateral upper extremities are unrem arkable. SKIN: No rashes. No skin ulcerations. NEUROLOGIC: Sensory and motor grossly intact. MUSCULOSKELETAL: No muscle fasciculations and at rophy noted. IMPRESSION: 1. Mild acute pancreatitis. There is lik elihood this could be small bowel leak considering CT is unremarkable. She does have el evated liver function tests which could be part of fatty liver versu s edema in the pancreatic head leading onto liver function test derangement. 2. Mildly elevated liver function tests, fatty liver versus secondary to edema in pancreatic head. 3. Acute kidney injury. On fluids. I have spoken to the ER physician. We will give her 2 L more bolus. From GI standpoint of view, continue to monitor the patient's progress. Dictated By: Michael Sutbbs MD WT: CON:E.ANKITA/DAYRON/NTS Conf#: [id number]/DID#: [id number] Authenticated by Michael Stubbs MD On 021 08:56:15 AM at 0856 PATIENT NAME: PAWAN REYES ACCOUNT #: [id number] 2020-09-21 10:28:00-00:00 [facility] ([facility] Hospitalist Progress Note REPORT#:[id number] REPORT STATUS: Signed DATE:09/21/20 TIME: 1028 PATIENT: PAWAN REYES UNIT #: [id number] ROOM/BED: [place] [address] : 58 AGE: 59 SEX: F ATTEND: Harris Reynolds MD ADM AUTHOR: Saniya Estrada * ALL edits or amendments must be made on the [employer]/computer document * Subjective Chief Complaint: N/V unable to keep any thing down this has now resolved, patient has been tolerati ng ice chips no abd pain some gas from the rectum Patient reports: Yes: feeling better, resting comfortably. No: complaints, abdominal pain, chest pain, chills, constipation, cough, diarrhea, dizziness, fever, headache, nausea, pain, shortness of breath, vomiting. Objective General VS/I O: Vital Signs: Date Time Temp Pulse Resp B/P B/P Pulse O2 O2 F low FiO2 Mean Ox Delivery Rate 09/21 0414 69 16 121/56 77 98 Room air 09/21 0116 36.8 65 18 112/54 73 97 Room air 09/20 1604 36.7 65 18 131/63 85 98 Room air 09/20 1323 36.7 65 18 133/63 86 99 Room air 24 hour I O ending at 0700: 09/21 0700 09/20 1900 Intake Total Output Total Balance Patient 89 kg Weight Weight Estimated Measurement Method PATIENT WEIGHT: Weight (lb): Weight (oz): Weight (kg): 89.000 Medications: Active Meds + DC'd Last 24 Hrs Aspirin 81 MG DAILY PO Pantoprazole 40 MG DAILY IV Potassium Chloride 100 ML ONCE ONE IV (DC) Atorvastatin Calcium 80 MG BEDTIME PO Insulin Human Lispro 0 AC HS SUBQ Enoxaparin Sodium 30 MG Q24H SUBQ Potassium Chloride 40 MEQ ONCE ONE PO (DC) Dextrose/Water 125 ML ASDIR PRN IV Dextrose/Water 250 ML ASDIR PRN IV Folic Acid 1 MG .Q6H45M IV (DC) Thiamine HCl 100 MG Multivitamins 10 ML Sodium Chloride 1,000 ML Glucagon 1 MG ASDIR PRN IM Sodium Chloride 10 ML ASDIR PRN IV Acetaminophen 650 MG Q4H PRN PRN PO Dextrose/Water 125 ML ASDIR PRN IV Dextrose/Water 250 ML ASDIR PRN IV Glucagon 1 MG ASDIR PRN IM Hydrocodone Bitart/Acetaminophen 1 TAB Q4H PRN P RN PO Ondansetron HCl 4 MG Q6H PRN PRN IV Sodium Chloride 1,000 ML X1ED STA IV (DC) Sodium Chloride 10 ML ASDIR PRN IV Sodium Chloride 1,000 ML X1ED STA IV (DC) Physical Exam General appearance: obese, alert, awake, oriente d Head/Eyes: atraumatic, EOMI, PERRLA ENT: moist mucosal membranes Neck: full range of motion, non-tender, normal t hyroid, no JVD Cardiovascular: normal heart sounds, regular rat e rhythm Respiratory: clear to auscultation, symmetric ex pansion, no distress Abdomen: non-tender, normal bowel sounds, soft, no distention Extremities: moves all, no edema Musculoskeletal: normal inspection Skin: dry, intact, normal color, normal temperat ure, no rash, surgical sites look well, mild bruising, no emerson or drainage Results Findings/Data: Laboratory Tests 09/21 09/21 09/20 0805 0645 2157 Chemistry Sodium (134.0 - 147.0 mmol/l) 149 H Potassium (3.6 - 5.2 mmol/L) 3.4 L Chloride (98.0 - 107.0 mmol/l) 111 H Carbon Dioxide (21.0 - 33.0 mmol/l) 26.0 Anion Gap (0 - 20) 15.4 BUN (7.0 - 18.0 mg/dl) 31 H Creatinine (0.60 - 1.30 mg/dL) 1.14 Est GFR ( Amer) (97 - 109 mL/min) 62 L Est GFR (Non-Af Amer) (80 - 90 mL/min) 51 L Glucose (70.0 - 110.0 mg/dl) 88 POC Glucose (70 - 110 mg/dL) 101 101 Calcium (8.0 - 10.5 mg/dl) 7.6 L Total Bilirubin (0.0 - 1.0 mg/dl) 0.9 AST (15 - 37 Units/L) 54 H ALT (12.0 - 78.0 Units/L) 91 H Total Alk Phosphatase (50.0 - 136.0 Units/L) 81 Total Protein (6.4 - 8.2 gm/dL) 6.9 Albumin (3.2 - 4.7 gm/dl) 3.4 Lipase (65.0 - 230.0 Units/L) 635 H Laboratory Tests 09/21 0645 Hematology WBC (4.5 - 11.0 K/mm3) 8.9 RBC (3.80 - 5.20 M/mm3) 3.77 L Hgb (12.0 - 16.0 gm/dL) 11.5 L Hct (36.0 - 48.0 %) 36.4 MCV (82.0 - 99.0 UM3) 96.6 MCH (25.5 - 32.5 UUG) 30.5 MCHC (29.0 - 35.5 gm/dL) 31.6 RDW (11.5 - 15.0 %) 13.3 Plt Count (150 - 400 K/mm3) 248 MPV (7.4 - 10.4 fl) 9.6 Neut % (Auto) (49.0 - 76.0 %) 62.8 Lymph % (Auto) (23.0 - 38.0 %) 25.8 Crosby % (Auto) (1.0 - 10.0 %) 8.8 Eos % (Auto) (1.0 - 5.0 %) 1.8 Baso % (Auto) (0.0 - 1.0 %) 0.5 Neut # (Auto) (2.4 - 6.3 K/mm3) 5.6 Lymph # (Auto) (1.2 - 4.0 K/mm3) 2.3 Crosby # (Auto) (0.0 - 0.6 K/mm3) 0.8 H Eos # (Auto) (0.0 - 0.7 K/MM3) 0.2 Baso # (Auto) (0.0 - 0.2 K/mm3) 0.0 Absolute Nucleated RBC (0.00 - 0.01 X10 3uL) 0. 00 Immature Gran % (0.0 - 0.4 %) 0.3 Nucleated RBC % (0.0 - 0.1 %) 0.0 Immature Gran # (0.00 - 0.07 x10 3/uL) 0.03 Radiology data: Recent Impressions: CAT SCAN - CT ABD PELVIS W/O CONT 09/20 1040 Report Impression - Status: SIGNED Entered: 09/20/2020 1049 IMPRESSION: 1. Surgical changes of the stomach are seen with no extraluminal contrast, surrounding inflammatory change, drain able collection, or bowel obstruction. 2. Other chronic changes as above. Impression By: [email or web address] - Ricardo wade M.D. ULTRASOUND - US [facility] 09/21 3103 Report Impression - Status: SIGNED Entered: 09/21/2020 1008 Impression: No acute abnormality. Uniform perfus ion and cortical pattern for the kidneys. Small simple 1.9 cm left lower pole parapelvic c yst or dilated calyceal segment/diverticulum. Location: U 19 Impression By: [email or web address] - Zen Farooq MD Diagnosis, Assessment Plan Free Text DxA P Notes Free text DxA P notes: BLOSSOM with dehydration: resolved with hydratuion -Banana bag 2/2 high risk of folate and thiamine deficiency in bariatric patients -nephrology consult US noted Elevated liver enzymes: -AST 55, ALT 99 -IVF, NPO -GI consult, continue as per their recommendatio ns stable Elevated lipase: post op changes - normal -GI consult, -IVF, NPO, manage pain appropriately -Zofran for nausea/vomiting Leukocytosis: -Mild - reactive vs other N/V: -2/2 ab -IVF, IV zofran s/sx resloved advance diet - if tolerated pat can d/c Hypokalemia: -K 3.4 replace T2DM: -Controlled upon admit -Pt NPO at this time -Very lose dose SSI, monitor for hypoglycemic ev ents Electronically Signed by Saniya Estrada on 09/21 at 1034 RPT #:[id number] END OF REPORT 2020-09-21 10:28:00-00:00 [facility] ([facility] Hospitalist Progress Note REPORT#:[id number] REPORT STATUS: Signed DATE:09/21/20 TIME: 1028 PATIENT: PAWAN REYES UNIT #: [id number] ROOM/BED: [place] [id number] : [birth year] AGE: 59 SEX: F ATTEND: Harris Reynolds MD ADM AUTHOR: Saniya Estrada * ALL edits or amendments must be made on the Y[employer] Y[employer]/computer document * Subjective Chief Complaint: N/V unable to keep any thing down this has now resolved, patient has been tolerati ng ice chips no abd pain some gas from the rectum Patient reports: Yes: feeling better, resting comfortably. No: complaints, abdominal pain, chest pain, chills, constipation, cough, diarrhea, dizziness, fever, headache, nausea, pain, shortness of breath, vomiting. Objective General VS/I O: Vital Signs: Date Time Temp Pulse Resp B/P B/P Pulse O2 O2 F low FiO2 Mean Ox Delivery Rate 09/21 0414 69 16 121/56 77 98 Room air 09/21 0116 36.8 65 18 112/54 73 97 Room air 09/20 1604 36.7 65 18 131/63 85 98 Room air 09/20 1323 36.7 65 18 133/63 86 99 Room air 24 hour I O ending at 0700: 09/21 0700 09/20 1900 Intake Total Output Total Balance Patient 89 kg Weight Weight Estimated Measurement Method PATIENT WEIGHT: Weight (lb): Weight (oz): Weight (kg): 89.000 Medications: Active Meds + DC'd Last 24 Hrs Aspirin 81 MG DAILY PO Pantoprazole 40 MG DAILY IV Potassium Chloride 100 ML ONCE ONE IV (DC) Atorvastatin Calcium 80 MG BEDTIME PO Insulin Human Lispro 0 AC HS SUBQ Enoxaparin Sodium 30 MG Q24H SUBQ Potassium Chloride 40 MEQ ONCE ONE PO (DC) Dextrose/Water 125 ML ASDIR PRN IV Dextrose/Water 250 ML ASDIR PRN IV Folic Acid 1 MG .Q6H45M IV (DC) Thiamine HCl 100 MG Multivitamins 10 ML Sodium Chloride 1,000 ML Glucagon 1 MG ASDIR PRN IM Sodium Chloride 10 ML ASDIR PRN IV Acetaminophen 650 MG Q4H PRN PRN PO Dextrose/Water 125 ML ASDIR PRN IV Dextrose/Water 250 ML ASDIR PRN IV Glucagon 1 MG ASDIR PRN IM Hydrocodone Bitart/Acetaminophen 1 TAB Q4H PRN P RN PO Ondansetron HCl 4 MG Q6H PRN PRN IV Sodium Chloride 1,000 ML X1ED STA IV (DC) Sodium Chloride 10 ML ASDIR PRN IV Sodium Chloride 1,000 ML X1ED STA IV (DC) Physical Exam General appearance: obese, alert, awake, oriente d Head/Eyes: atraumatic, EOMI, PERRLA ENT: moist mucosal membranes Neck: full range of motion, non-tender, normal t hyroid, no JVD Cardiovascular: normal heart sounds, regular rat e rhythm Respiratory: clear to auscultation, symmetric ex pansion, no distress Abdomen: non-tender, normal bowel sounds, soft, no distention Extremities: moves all, no edema Musculoskeletal: normal inspection Skin: dry, intact, normal color, normal temperat ure, no rash, surgical sites look well, mild bruising, no emerson or drainage Results Findings/Data: Laboratory Tests 09/21 09/21 09/20 0805 0645 2157 Chemistry Sodium (134.0 - 147.0 mmol/l) 149 H Potassium (3.6 - 5.2 mmol/L) 3.4 L Chloride (98.0 - 107.0 mmol/l) 111 H Carbon Dioxide (21.0 - 33.0 mmol/l) 26.0 Anion Gap (0 - 20) 15.4 BUN (7.0 - 18.0 mg/dl) 31 H Creatinine (0.60 - 1.30 mg/dL) 1.14 Est GFR ( Amer) (97 - 109 mL/min) 62 L Est GFR (Non-Af Amer) (80 - 90 mL/min) 51 L Glucose (70.0 - 110.0 mg/dl) 88 POC Glucose (70 - 110 mg/dL) 101 101 Calcium (8.0 - 10.5 mg/dl) 7.6 L Total Bilirubin (0.0 - 1.0 mg/dl) 0.9 AST (15 - 37 Units/L) 54 H ALT (12.0 - 78.0 Units/L) 91 H Total Alk Phosphatase (50.0 - 136.0 Units/L) 81 Total Protein (6.4 - 8.2 gm/dL) 6.9 Albumin (3.2 - 4.7 gm/dl) 3.4 Lipase (65.0 - 230.0 Units/L) 635 H Laboratory Tests 09/21 0645 Hematology WBC (4.5 - 11.0 K/mm3) 8.9 RBC (3.80 - 5.20 M/mm3) 3.77 L Hgb (12.0 - 16.0 gm/dL) 11.5 L Hct (36.0 - 48.0 %) 36.4 MCV (82.0 - 99.0 UM3) 96.6 MCH (25.5 - 32.5 UUG) 30.5 MCHC (29.0 - 35.5 gm/dL) 31.6 RDW (11.5 - 15.0 %) 13.3 Plt Count (150 - 400 K/mm3) 248 MPV (7.4 - 10.4 fl) 9.6 Neut % (Auto) (49.0 - 76.0 %) 62.8 Lymph % (Auto) (23.0 - 38.0 %) 25.8 Crosby % (Auto) (1.0 - 10.0 %) 8.8 Eos % (Auto) (1.0 - 5.0 %) 1.8 Baso % (Auto) (0.0 - 1.0 %) 0.5 Neut # (Auto) (2.4 - 6.3 K/mm3) 5.6 Lymph # (Auto) (1.2 - 4.0 K/mm3) 2.3 Crosby # (Auto) (0.0 - 0.6 K/mm3) 0.8 H Eos # (Auto) (0.0 - 0.7 K/MM3) 0.2 Baso # (Auto) (0.0 - 0.2 K/mm3) 0.0 Absolute Nucleated RBC (0.00 - 0.01 X10 3uL) 0. 00 Immature Gran % (0.0 - 0.4 %) 0.3 Nucleated RBC % (0.0 - 0.1 %) 0.0 Immature Gran # (0.00 - 0.07 x10 3/uL) 0.03 Radiology data: Recent Impressions: CAT SCAN - CT ABD PELVIS W/O CONT 09/20 1040 Report Impression - Status: SIGNED Entered: 09/20/2020 1049 IMPRESSION: 1. Surgical changes of the stomach are seen with no extraluminal contrast, surrounding inflammatory change, drain able collection, or bowel obstruction. 2. Other chronic changes as above. Impression By: [email or web address] - Ricardo wade M.D. ULTRASOUND - [facility] 09/21 0828 Report Impression - Status: SIGNED Entered: 09/21/2020 1008 Impression: No acute abnormality. Uniform perfus ion and cortical pattern for the kidneys. Small simple 1.9 cm left lower pole parapelvic c yst or dilated calyceal segment/diverticulum. Location: U 19 Impression By: [email or web address] - Zen Farooq MD Diagnosis, Assessment Plan Free Text DxA P Notes Free text DxA P notes: BLOSSOM with dehydration: resolved with hydratuion -Banana bag 2/2 high risk of folate and thiamine deficiency in bariatric patients -nephrology consult US noted Elevated liver enzymes: -AST 55, ALT 99 -IVF, NPO -GI consult, continue as per their recommendatio ns stable Elevated lipase: post op changes - normal -GI consult, -IVF, NPO, manage pain appropriately -Zofran for nausea/vomiting Leukocytosis: -Mild - reactive vs other N/V: -2/2 ab -IVF, IV zofran s/sx resloved advance diet - if tolerated pat can d/c Hypokalemia: -K 3.4 replace T2DM: -Controlled upon admit -Pt NPO at this time -Very lose dose SSI, monitor for hypoglycemic ev ents Electronically Signed by Saniya Estrada on 09/21 at 1034 Electronically Signed by Rodrigo Reynolds MD on 0 09/24/20 at 0819 RPT #:[id number] END OF REPORT 2020-09-21 07:39:00-00:00 [id number] [facility] and [facility] [address] [place], [place] [address] PATIENT NAME: PAWAN REYES ADMIT DATE: 09/20/20 ACCOUNT NO: [id number] DISCHARGE DATE: 1 ROOM NO: E.[id number] REPORT TYPE: CONSULTATION REPORT DATE OF : 58 AGE: 59 SEX: F ADMITTING PHYSICIAN:Rodrigo Reynolds MD ATTENDING PHYSICIAN:Rodrigo Reynolds MD CONSULTATION DATE: CONSULTING PHYSICIAN: Marsha Ramirez MD HISTORY: This is a [facility] admi ssion for this 59-year-old woman with a history of hypertension, diabetes, previously normal renal function, who is curre ntly admitted for acute renal injury. I am asked by Dr. Rodrigo Reynolds to evaluate the patient for re nal abnormalities. The patient went to [place] 2 weeks ago to receiv e gastric bypass. The surgery itself was uncomplicated. However, she returns w ith nausea and vomiting that she has had for 2 days. Since arriving to the ER , she received IV hydration, antiemetics, and feels much better with resoluti on of symptoms. The patient has had hypertension for over 5 year s. She denies any myocardial infarction or CVA. The patient has also had diab etes for approximately 10 years. Degree of control is largely unknown. She has diabetic neuropathy. She denies any diabetic retinopathy or nephropathy. Last labs in the computer indicate a serum creatinine of 0.75 in February 2018. Current creatinine is 2.31. PAST MEDICAL HISTORY: 1. Gastric bypass, [facility], August 2020. 2. Bilateral tubal ligation. 3. Cholecystectomy. CURRENT MEDICATIONS: Reviewed. FAMILY HISTORY: Positive for renal disease, [facility] SOCIAL HISTORY: No tobacco or ethanol use. REVIEW OF SYSTEMS: GENERAL: No fever. Appetite poor. EYES: No visual abnormalities. ENT: No auditory abnormalities. No sore throat. ENDOCRINE: Positive diabetes. LUNGS: No shortness of breath, cough, or hemopty sis. CARDIAC: No chest pain, PND, or orthopnea. GASTROINTESTINAL: Nausea and vomiting for severa l days. GENITOURINARY: As above. MUSCULOSKELETAL: No inflammatory joint abnormali ties. SKIN: No rashes. PATIENT NAME: PAWAN REYES ACCOUNT #: [id number] PSYCHIATRIC: No hallucinations. NEUROLOGIC: No focal complaints. ALLERGIES: No allergic rhinitis. HEMATOLOGIC: No bleeding diathesis. PHYSICAL EXAMINATION: VITAL SIGNS: Blood pressure 121/56, pulse 69, temperature 98.2, and respiratory rate 16. GENERAL: Awake, alert, conversive woman, provid ing a cogent history, in no apparent distress. HEENT: Eyes nonicteric, not injected. Pupils equ ally reactive. Oropharynx, dry mucous membranes. NECK: No JVD. No lymphadenopathy. LUNGS: Good inspiratory effort. Generally clear. CARDIAC: Regular S1 and S2. No murmur or rub. ABDOMEN: Bowel sounds present. Soft, nontender. No hepatosplenomegaly. EXTREMITIES: Four limbs present. No cyanosis or edema. SKIN: No rashes. PSYCHIATRIC: Oriented to person, place, and situ ation. NEUROLOGIC: Sensory grossly intact. LABORATORY DATA: Sodium 144, potassium 3 .3, chloride 104, CO2 of 23.3, glucose 131, BUN 50, and creatinine 2.3. WBCs 11.8, hemo globin 13.5, hematocrit 40.9, and platelets 333,000. IMPRESSION: 1. Acute kidney injury. There has been a rise in the serum creatinine from its baseline value of 0.75 to its current le taylor of 2.31. The etiology of the acute kidney injury is intravascular volume de pletion. IV hydration in progress. The patient likely has underlying chronic kidney dis ease from her diabetes and hypertension, though current data does not suppo rt this notion. 2. Chronic kidney disease, stage unknown. Curren tly with protein and blood in the urine without evidence of a urinary tract in fection. 3. Intravascular volume depletion. IV hydration in progress. 4. Proteinuria. Likely underlying diabetic nephr opathy. 5. Hematuria. Likely underlying diabetic nephrop athy. 6. Nausea and vomiting secondary to gastric bypa ss. May need periodic IV infusion, which likely can b e done with her primary care doctor or in my office. 6. Anemia, mild. At risk with recent gastric byp ass surgery. 7. Morbid obesity. 8. Hypokalemia. IV repletion. RECOMMENDATIONS: 1. Bilateral renal ultrasound. 2. IV hydration. 3. Urine nssbustharqj-tx-rnbwaowpri ratio. 4. Daily labs. 5. Potassium repletion. Dictated By: Marsha Ramirez MD WT: CON:E.ANKITA/RUBEN/RULA Conf#: [id number]/DID#: [id number] PATIENT NAME: PAWAN REYES ACCOUNT #: [id number] Authenticated by Marsha Ramirez MD On 07:28:05 PM at 1928 PATIENT NAME: PAWAN REYES ACCOUNT #: [id number] 2020-09-20 12:44:00-00:00 [facility] ([facility] History Physical - Adult REPORT#:[id number] REPORT STATUS: Signed DATE:09/20/20 TIME: 1244 PATIENT: PAWAN REYES UNIT #: [id number] ROOM/BED: [place] [id number] : 58 AGE: 60 SEX: F ATTEND: Harris Reynolds MD ADM AUTHOR: Moira Montanez * ALL edits or amendments must be made on the Y[employer]/computer document * History of Present Illness HPI Chief complaint: Nausea/vomiting s/p gastric sleeve BLOSSOM Elevated liver enzymes PCP: PCP: Aston Escobar MD HPI: Pt was seen and examined by me. Labs, re ports, and clinical docuementation not created by me were reviewed in detail by me. Pt is a 59 y/o female with PMH of obesity, HTN, T2DM, depression, HLD, GILSON. She pr esented to ED today for intractible nausea/vomiting/diarrhea after under going gastric bypass surgery approximately [address] imaging in ED show ed surgical change of the stomach without extraluminal contrast, surroundi ng inflammatory change, drainable collection, or bow el obstruction. Labs in ED suggestive of dehydration an associated BLOSSOM with Cr 2.31, BUN 50, eGFR 23. Potassium 3.3. Liver and pancreatic enzymes elevated with AST 55, ALT 99, and Lipase 621. Pt with leukocytosis of 11. Pt was g iven IVF in the ED, nephrology was consulted, and pt was admitted for Acute renal failure. Pt was seen sitting comfortably in ED, in NAD. S he confirms having gastric bypass surgery in [facility] [place] approximately 2 weeks a go, for which she has been compliant with abx and medications presc ribed upon discharge. She reports that nausea, vomiting, and loose stools have worsened over the past 2-3 days. She states that she has not been able tolerate any P O Foods or liquids x several days. She denies any LEOS, diz ziness, CP, dyspnea, weakness, edema, dysuria, flank pain, urinary frequency, or any other complaints at this time. History Past medical history: Reports: Diabetes mellitus, Hypertension, Dyslip idemia. Past surgical history: Reports: Bariatric procedure, Cholecystectomy. Additional surgical history: hysterectomy Family history: Reports: Diabetes, Hypertension, Kidney disease/ stones. Alcohol use: Denies EtOH use Drug use: Denies recreational drugs Smoking status: Smoking status for patients 13 years old or old er: Never Smoker Medication/Allergy-Vaccine Hx Medications: Home Medications: Medication Dose/Rte/Freq Days Qty Entered Last Max Daily Dose Reviewed sitaGLIPtin/metFORMIN XR 1 TAB PO BID 03/15/18 09/20/20 (JANUMET XR MG) 0951 1039 Strength: 1 TAB TAB.ER.24H LISINOPRIL (ZESTRIL) 10 MG PO DAILY 03/15/18 Strength: 10 MG TAB 0951 1041 ESCITALOPRAM (LEXAPRO) 10 MG PO DAILY 03/15/18 09/20/20 Strength: 10 MG TAB 0951 1040 TERBINAFINE (LamISIL) 250 MG PO DAILY 03/15/18 09/20/20 Strength: 250 MG TAB 0952 1040 ASPIRIN EC (ECOTRIN) 81 MG PO DAILY 03/15/18 Strength: 81 MG TAB.EC 0952 1039 Current Hospital Medications: Central Nervous System Agents Sig/Shruti Start time Last Medication Dose Route Stop Time Status Admin Acetaminophen 650 MG Q4H PRN PRN 09/20 1245 AC (TYLENOL 325MG) PO 09/21 1131 Hydrocodone Bitart/ 1 TAB Q4H PRN PRN 09/20 124 5 AC Acetaminophen PO 09/21 1131 (NORCO 5/325 TABLET) Diagnostic Agents Sig/Shruti Start time Last Medication Dose Route Stop Time Status Admin Iohexol 0 .STK-MED ONE 09/20 1026 DC 09/20 (OMNIPAQUE ORAL SOLN) PO 1040 Diatrizoate Meglum/ 30 ML X1ED STA 09/20 0938 D C Diatrizoate Sod PO 09/20 0939 (GASTROGRAFIN) Electrolytic, Caloric, And Suzan Sig/Shruti Start time Last Medication Dose Route Stop Time Status Admin Dextrose/Water 125 ML ASDIR PRN 09/20 1245 AC (DEXTROSE 10%) IV 09/21 1131 Dextrose/Water 250 ML ASDIR PRN 09/20 1245 AC (DEXTROSE 10%) IV 09/21 1131 Sodium Chloride 1,000 ML X1ED STA 09/20 1231 AC (SODIUM CHLORIDE IV 09/20 2230 0.9%) Sodium Chloride 10 ML ASDIR PRN 09/20 0945 AC (SODIUM CHLORIDE IV 10/20 0944 0.9% 10ML) Sodium Chloride 1,000 ML X1ED STA 09/20 0936 D C 09/20 (SODIUM CHLORIDE IV 09/20 1035 1038 0.9%) Gastrointestinal Drugs Sig/Shruti Start time Last Medication Dose Route Stop Time Status Admin Ondansetron HCl 4 MG Q6H PRN PRN 09/20 1245 AC (ZOFRAN 2ML) IV 09/21 1131 Ondansetron HCl 4 MG X1ED STA 09/20 0936 DC (ZOFRAN 2ML) IV 09/20 0937 1021 Pantoprazole 40 MG X1ED STA 09/20 0936 DC 09/20 (PROTONIX 40MG INJ) IV 09/20 0937 1020 Hormones And Synthetic Substit Sig/Shruti Start time Last Medication Dose Route Stop Time Status Admin Glucagon 1 MG ASDIR PRN 09/20 1245 AC (GLUCAGON) IM 09/21 1131 Allergies: Uncoded Allergies: SULFA DRUGS (UNKNOWN REACTION, CHILDHOOD REACTIO N 03/15/18) Review of Systems Free Text ROS Notes Free Text ROS Notes: 14 point ROS obtained and negative unless specif ically stated above. Physical Exam VS/I O Vital Signs: Date Time Temp Pulse Resp B/P B/P Pulse O2 O2 F low FiO2 Mean Ox Delivery Rate 09/20 0848 98.3 75 18 128/81 96 98 PATIENT WEIGHT: Weight (lb): Weight (oz): Weight (kg): 89.000 General appearance: alert, awake, oriented, no a cute distress, pleasant Head/Eyes: atraumatic, clear cornea, EOMI, normo cephalic, normal conjunctiva/ sclera, normal eyelids/periorb, PERRLA ENT: normal dentition, normal ear left, normal e ar right Neck: full range of motion, non-tender, no JVD Cardiovascular: regular rate rhythm, nor mal heart sounds, no ectopy, no gallop , no heave, no murmur Respiratory: clear to auscultation, no d istress, no tenderness, aerating well, symmetric expansion Abdomen/GI: decreased bowel sounds, soft , non-tender, no guarding, no rebound, no distention Extremities: moves all, no edema-all extremities , no calf tenderness, no clubbing, no cyanosis, no evidence of DVT Neuro/BALLET PROFESSOR: alert, oriented X 3, normal speech Skin: dry, intact Psychiatry: no hallucinations, normal affect, no rmal judgment/insight, normal mood Results Findings/Data: Laboratory Tests: 09/20 09/20 0947 0929 Chemistry Sodium (134.0 - 147.0 mmol/l) 144 Potassium (3.6 - 5.2 mmol/L) 3.3 L Chloride (98.0 - 107.0 mmol/l) 104 Carbon Dioxide (21.0 - 33.0 mmol/l) 23.3 Anion Gap (0 - 20) 20.0 BUN (7.0 - 18.0 mg/dl) 50 H Creatinine (0.60 - 1.30 mg/dL) 2.31 H Est GFR ( Amer) (97 - 109 mL/min) 28 L Est GFR (Non-Af Amer) (80 - 90 mL/min) 23 L Glucose (70.0 - 110.0 mg/dl) 131 H Calcium (8.0 - 10.5 mg/dl) 9.0 Total Bilirubin (0.0 - 1.0 mg/dl) 0.8 Direct Bilirubin (0.0 - 0.3 mg/dl) 0.2 AST (15 - 37 Units/L) 55 H ALT (12.0 - 78.0 Units/L) 99 H Total Alk Phosphatase (50.0 - 136.0 Units/L) 10 1 Troponin I (0.00 - 0.06 NG/ML) <0.02 Total Protein (6.4 - 8.2 gm/dL) 8.5 H Albumin (3.2 - 4.7 gm/dl) 4.3 Lipase (65.0 - 230.0 Units/L) 621 H Hematology WBC (4.5 - 11.0 K/mm3) 11.8 H RBC (3.80 - 5.20 M/mm3) 4.40 Hgb (12.0 - 16.0 gm/dL) 13.5 Hct (36.0 - 48.0 %) 40.9 MCV (82.0 - 99.0 UM3) 93.0 MCH (25.5 - 32.5 UUG) 30.7 MCHC (29.0 - 35.5 gm/dL) 33.0 RDW (11.5 - 15.0 %) 13.2 Plt Count (150 - 400 K/mm3) 333 MPV (7.4 - 10.4 fl) 9.3 Neut % (Auto) (49.0 - 76.0 %) 79.4 H Lymph % (Auto) (23.0 - 38.0 %) 13.7 L Crosby % (Auto) (1.0 - 10.0 %) 5.2 Eos % (Auto) (1.0 - 5.0 %) 0.6 L Baso % (Auto) (0.0 - 1.0 %) 0.7 Neut # (Auto) (2.4 - 6.3 K/mm3) 9.4 H Lymph # (Auto) (1.2 - 4.0 K/mm3) 1.6 Crosby # (Auto) (0.0 - 0.6 K/mm3) 0.6 Eos # (Auto) (0.0 - 0.7 K/MM3) 0.1 Baso # (Auto) (0.0 - 0.2 K/mm3) 0.1 Absolute Nucleated RBC (0.00 - 0.01 X10 3uL) 0. 00 Immature Gran % (0.0 - 0.4 %) 0.4 Nucleated RBC % (0.0 - 0.1 %) 0.0 Immature Gran # (0.00 - 0.07 x10 3/uL) 0.05 Urines Urine Color YELLOW Urine Appearance HAZY Urine pH (5.0 - 9.0) 5.0 Ur Specific [place] (1.000 - 1.030) 1.025 Urine Protein (NEGATIVE mg/dl) 100 H Urine Glucose (UA) (NORMAL mg/dl) NORMAL Urine Ketones (NEGATIVE mg/dl) 50 mg/dl H Urine Blood (NEGATIVE Emerson/micL) 10 Emerson/micL H Urine Nitrite (NEGATIVE) NEGATIVE Urine Bilirubin (NEGATIVE mg/dL) 1 mg/dL H Urine Urobilinogen (NORMAL mg/dl) NORMAL Ur Leukocyte Esterase (NEGATIVE Breanna/micL) 25 Le u/micL H Urine RBC (0 - 3 RBC/HPF) 1-3 Urine WBC (NONE WBC/HPF) 4-9 H Ur Epithelial Cells (0 - 3 EPI/HPF) 2-5 H Urine Bacteria (NONE) FEW Coarse Granular Casts (NEGATIVE /LPF) 0-1 Other Casts (0 - 1/LPF /LPF) WBC Radiology data: Recent Impressions: CAT SCAN - CT ABD PELVIS W/O CONT 09/20 1040 Report Impression - Status: SIGNED Entered: 09/20/2020 1049 IMPRESSION: 1. Surgical changes of the stomach are seen with no extraluminal contrast, surrounding inflammatory change, drain able collection, or bowel obstruction. 2. Other chronic changes as above. Impression By: [email or web address] - Ricardo wade M.D. Results: labs reviewed, vital signs stable, CT r esults reviewed, current med profile rev'd Diagnosis, Assessment Plan Problem List/A P: 1. Nausea 2. ARF (acute renal failure) 3. Dehydration 4. Hypokalemia 5. Elevated liver enzymes 6. Acute pancreatitis 7. Elevated lipase Consultants: gastroenterology, nephrology Free Text DxA P Notes Free Text DxA P Notes: BLOSSOM with dehydration: -Cr 2.31 -BUN 50 -eGFR 23 -No prior hx of kidney disease -Banana bag 2/2 high risk of folate and thiamine deficiency in bariatric patients -nephrology consult -CMP in the AM, monitor for decline Elevated liver enzymes: -AST 55, ALT 99 -IVF, NPO -GI consult, continue as per their recommendatio ns -CMP in the AM monitor for decline Elevated lipase: -Concern for pancreatitis -GI consult, -IVF, NPO, manage pain appropriately -Zofran for nausea/vomiting Leukocytosis: -Mild - reactive vs other -UA with likely contamination, no associated sym ptoms -CBC in the AM, continue to monitor N/V: -2/2 ab -IVF, IV zofran -NPO, will advance diet as tolerated when sympto ms controlled -Continue to monitor Hypokalemia: -K 3.3 in ED -PO replacement x1 -Labs in the AM, replace as necessary T2DM: -Controlled upon admit -Pt NPO at this time -Very lose dose SSI, monitor for hypoglycemic ev ents Other comorbitidies: HTN, HLD, depression -Restart home meds and monitor for decline VTE ppx: lovenox Electronically Signed by Moira Montanez on 03/19 at 1229 RPT #:[id number] END OF REPORT 2020-09-20 12:44:00-00:00 [facility] ([facility]) History Physical - Adult REPORT#:[id number] REPORT STATUS: Signed DATE:09/20/20 TIME: 1244 PATIENT: PAWAN REYES UNIT #: [id number] ROOM/BED: [place] [address] : [birth year] AGE: 60 SEX: F ATTEND: Harris Reynolds MD ADM AUTHOR: Moira Montanez * ALL edits or amendments must be made on the [employer]/computer document * History of Present Illness HPI Chief complaint: Nausea/vomiting s/p gastric sleeve BLOSSOM Elevated liver enzymes PCP: PCP: Aston Escobar MD HPI: Pt was seen and examined by me. Labs, re ports, and clinical docuementation not created by me were reviewed in detail by me. Pt is a 59 y/o female with PMH of obesity, HTN, T2DM, depression, HLD, GILSON. She pr esented to ED today for intractible nausea/vomiting/diarrhea after under going gastric bypass surgery approximately [address] imaging in ED show ed surgical change of the stomach without extraluminal contrast, surroundi ng inflammatory change, drainable collection, or bow el obstruction. Labs in ED suggestive of dehydration an associated BLOSSOM with Cr 2.31, BUN 50, eGFR 23. Potassium 3.3. Liver and pancreatic enzymes elevated with AST 55, ALT 99, and Lipase 621. Pt with leukocytosis of 11. Pt was g iven IVF in the ED, nephrology was consulted, and pt was admitted for Acute renal failure. Pt was seen sitting comfortably in ED, in NAD. S he confirms having gastric bypass surgery in [place] approximately 2 weeks a go, for which she has been compliant with abx and medications presc ribed upon discharge. She reports that nausea, vomiting, and loose stools have worsened over the past 2-3 days. She states that she has not been able tolerate any P O Foods or liquids x several days. She denies any LEOS, diz ziness, CP, dyspnea, weakness, edema, dysuria, flank pain, urinary frequency, or any other complaints at this time. History Past medical history: Reports: Diabetes mellitus, Hypertension, Dyslip idemia. Past surgical history: Reports: Bariatric procedure, Cholecystectomy. Additional surgical history: hysterectomy Family history: Reports: Diabetes, Hypertension, Kidney disease/ stones. Alcohol use: Denies EtOH use Drug use: Denies recreational drugs Smoking status: Smoking status for patients 13 years old or old er: Never Smoker Medication/Allergy-Vaccine Hx Medications: Home Medications: Medication Dose/Rte/Freq Days Qty Entered Last Max Daily Dose Reviewed sitaGLIPtin/metFORMIN XR 1 TAB PO BID 03/15/18 09/20/20 (JANUMET XR MG) 0951 1039 Strength: 1 TAB TAB.ER.24H LISINOPRIL (ZESTRIL) 10 MG PO DAILY 03/15/18 Strength: 10 MG TAB 0951 1041 ESCITALOPRAM (LEXAPRO) 10 MG PO DAILY 03/15/18 09/20/20 Strength: 10 MG TAB 0951 1040 TERBINAFINE (LamISIL) 250 MG PO DAILY 03/15/18 09/20/20 Strength: 250 MG TAB 0952 1040 ASPIRIN EC (ECOTRIN) 81 MG PO DAILY 03/15/18 Strength: 81 MG TAB.EC 0952 1039 Current Hospital Medications: Central Nervous System Agents Sig/Shruti Start time Last Medication Dose Route Stop Time Status Admin Acetaminophen 650 MG Q4H PRN PRN 09/20 1245 AC (TYLENOL 325MG) PO 09/21 1131 Hydrocodone Bitart/ 1 TAB Q4H PRN PRN 09/20 124 5 AC Acetaminophen PO 09/21 1131 (NORCO 5/325 TABLET) Diagnostic Agents Sig/Shruti Start time Last Medication Dose Route Stop Time Status Admin Iohexol 0 .STK-MED ONE 09/20 1026 DC 09/20 (OMNIPAQUE ORAL SOLN) PO 1040 Diatrizoate Meglum/ 30 ML X1ED STA 09/20 0938 D C Diatrizoate Sod PO 09/20 0939 (GASTROGRAFIN) Electrolytic, Caloric, And Suzan Sig/Shruti Start time Last Medication Dose Route Stop Time Status Admin Dextrose/Water 125 ML ASDIR PRN 09/20 1245 AC (DEXTROSE 10%) IV 09/21 1131 Dextrose/Water 250 ML ASDIR PRN 09/20 1245 AC (DEXTROSE 10%) IV 09/21 1131 Sodium Chloride 1,000 ML X1ED STA 09/20 1231 AC (SODIUM CHLORIDE IV 09/20 2230 0.9%) Sodium Chloride 10 ML ASDIR PRN 09/20 0945 AC (SODIUM CHLORIDE IV 10/20 0944 0.9% 10ML) Sodium Chloride 1,000 ML X1ED STA 09/20 0936 DC 09/20 (SODIUM CHLORIDE IV 09/20 1035 1038 0.9%) Gastrointestinal Drugs Sig/Shruti Start time Last Medication Dose Route Stop Time Status Admin Ondansetron HCl 4 MG Q6H PRN PRN 09/20 1245 AC (ZOFRAN 2ML) IV 09/21 1131 Ondansetron HCl 4 MG X1ED STA 09/20 0936 DC (ZOFRAN 2ML) IV 09/20 0937 1021 Pantoprazole 40 MG X1ED STA 09/20 0936 DC 09/20 (PROTONIX 40MG INJ) IV 09/20 0937 1020 Hormones And Synthetic Substit Sig/Shruti Start time Last Medication Dose Route Stop Time Status Admin Glucagon 1 MG ASDIR PRN 09/20 1245 AC (GLUCAGON) IM 09/21 1131 Allergies: Uncoded Allergies: SULFA DRUGS (UNKNOWN REACTION, CHILDHOOD REACTIO N 03/15/18) Review of Systems Free Text ROS Notes Free Text ROS Notes: 14 point ROS obtained and negative unless specif ically stated above. Physical Exam VS/I O Vital Signs: Date Time Temp Pulse Resp B/P B/P Pulse O2 O2 F low FiO2 Mean Ox Delivery Rate 09/20 0848 98.3 75 18 128/81 96 98 PATIENT WEIGHT: Weight (lb): Weight (oz): Weight (kg): 89.000 General appearance: alert, awake, oriented, no a cute distress, pleasant Head/Eyes: atraumatic, clear cornea, EOMI, normo cephalic, normal conjunctiva/ sclera, normal eyelids/periorb, PERRLA ENT: normal dentition, normal ear left, normal e ar right Neck: full range of motion, non-tender, no JVD Cardiovascular: regular rate rhythm, nor mal heart sounds, no ectopy, no gallop , no heave, no murmur Respiratory: clear to auscultation, no d istress, no tenderness, aerating well, symmetric expansion Abdomen/GI: decreased bowel sounds, soft , non-tender, no guarding, no rebound, no distention Extremities: moves all, no edema-all extremities , no calf tenderness, no clubbing, no cyanosis, no evidence of DVT Neuro/BALLET PROFESSOR: alert, oriented X 3, normal speech Skin: dry, intact Psychiatry: no hallucinations, normal affect, no rmal judgment/insight, normal mood Results Findings/Data: Laboratory Tests: 09/20 09/20 0947 0929 Chemistry Sodium (134.0 - 147.0 mmol/l) 144 Potassium (3.6 - 5.2 mmol/L) 3.3 L Chloride (98.0 - 107.0 mmol/l) 104 Carbon Dioxide (21.0 - 33.0 mmol/l) 23.3 Anion Gap (0 - 20) 20.0 BUN (7.0 - 18.0 mg/dl) 50 H Creatinine (0.60 - 1.30 mg/dL) 2.31 H Est GFR ( Amer) (97 - 109 mL/min) 28 L Est GFR (Non-Af Amer) (80 - 90 mL/min) 23 L Glucose (70.0 - 110.0 mg/dl) 131 H Calcium (8.0 - 10.5 mg/dl) 9.0 Total Bilirubin (0.0 - 1.0 mg/dl) 0.8 Direct Bilirubin (0.0 - 0.3 mg/dl) 0.2 AST (15 - 37 Units/L) 55 H ALT (12.0 - 78.0 Units/L) 99 H Total Alk Phosphatase (50.0 - 136.0 Units/L) 10 1 Troponin I (0.00 - 0.06 NG/ML) <0.02 Total Protein (6.4 - 8.2 gm/dL) 8.5 H Albumin (3.2 - 4.7 gm/dl) 4.3 Lipase (65.0 - 230.0 Units/L) 621 H Hematology WBC (4.5 - 11.0 K/mm3) 11.8 H RBC (3.80 - 5.20 M/mm3) 4.40 Hgb (12.0 - 16.0 gm/dL) 13.5 Hct (36.0 - 48.0 %) 40.9 MCV (82.0 - 99.0 UM3) 93.0 MCH (25.5 - 32.5 UUG) 30.7 MCHC (29.0 - 35.5 gm/dL) 33.0 RDW (11.5 - 15.0 %) 13.2 Plt Count (150 - 400 K/mm3) 333 MPV (7.4 - 10.4 fl) 9.3 Neut % (Auto) (49.0 - 76.0 %) 79.4 H Lymph % (Auto) (23.0 - 38.0 %) 13.7 L Crosby % (Auto) (1.0 - 10.0 %) 5.2 Eos % (Auto) (1.0 - 5.0 %) 0.6 L Baso % (Auto) (0.0 - 1.0 %) 0.7 Neut # (Auto) (2.4 - 6.3 K/mm3) 9.4 H Lymph # (Auto) (1.2 - 4.0 K/mm3) 1.6 Crosby # (Auto) (0.0 - 0.6 K/mm3) 0.6 Eos # (Auto) (0.0 - 0.7 K/MM3) 0.1 Baso # (Auto) (0.0 - 0.2 K/mm3) 0.1 Absolute Nucleated RBC (0.00 - 0.01 X10 3uL) 0. 00 Immature Gran % (0.0 - 0.4 %) 0.4 Nucleated RBC % (0.0 - 0.1 %) 0.0 Immature Gran # (0.00 - 0.07 x10 3/uL) 0.05 Urines Urine Color YELLOW Urine Appearance HAZY Urine pH (5.0 - 9.0) 5.0 Ur Specific [place] (1.000 - 1.030) 1.025 Urine Protein (NEGATIVE mg/dl) 100 H Urine Glucose (UA) (NORMAL mg/dl) NORMAL Urine Ketones (NEGATIVE mg/dl) 50 mg/dl H Urine Blood (NEGATIVE Emerson/micL) 10 Emerson/micL H Urine Nitrite (NEGATIVE) NEGATIVE Urine Bilirubin (NEGATIVE mg/dL) 1 mg/dL H Urine Urobilinogen (NORMAL mg/dl) NORMAL Ur Leukocyte Esterase (NEGATIVE Breanna/micL) 25 Le u/micL H Urine RBC (0 - 3 RBC/HPF) 1-3 Urine WBC (NONE WBC/HPF) 4-9 H Ur Epithelial Cells (0 - 3 EPI/HPF) 2-5 H Urine Bacteria (NONE) FEW Coarse Granular Casts (NEGATIVE /LPF) 0-1 Other Casts (0 - 1/LPF /LPF) WBC Radiology data: Recent Impressions: CAT SCAN - CT ABD PELVIS W/O CONT 09/20 1040 Report Impression - Status: SIGNED Entered: 09/20/2020 1049 IMPRESSION: 1. Surgical changes of the stomach are seen with no extraluminal contrast, surrounding inflammatory change, drain able collection, or bowel obstruction. 2. Other chronic changes as above. Impression By: [email or web address] - Ricardo wade M.D. Results: labs reviewed, vital signs stable, CT r esults reviewed, current med profile rev'd Diagnosis, Assessment Plan Problem List/A P: 1. Nausea 2. ARF (acute renal failure) 3. Dehydration 4. Hypokalemia 5. Elevated liver enzymes 6. Acute pancreatitis 7. Elevated lipase Consultants: gastroenterology, nephrology Free Text DxA P Notes Free Text DxA P Notes: BLOSSOM with dehydration: -Cr 2.31 -BUN 50 -eGFR 23 -No prior hx of kidney disease -Banana bag 2/2 high risk of folate and thiamine deficiency in bariatric patients -nephrology consult -CMP in the AM, monitor for decline Elevated liver enzymes: -AST 55, ALT 99 -IVF, NPO -GI consult, continue as per their recommendatio ns -CMP in the AM monitor for decline Elevated lipase: -Concern for pancreatitis -GI consult, -IVF, NPO, manage pain appropriately -Zofran for nausea/vomiting Leukocytosis: -Mild - reactive vs other -UA with likely contamination, no associated sym ptoms -CBC in the AM, continue to monitor N/V: -2/2 ab -IVF, IV zofran -NPO, will advance diet as tolerated when sympto ms controlled -Continue to monitor Hypokalemia: -K 3.3 in ED -PO replacement x1 -Labs in the AM, replace as necessary T2DM: -Controlled upon admit -Pt NPO at this time -Very lose dose SSI, monitor for hypoglycemic ev ents Other comorbitidies: HTN, HLD, depression -Restart home meds and monitor for decline VTE ppx: lovenox Electronically Signed by Moira Montanez on 03/19 at 1229 Electronically Signed by Rodrigo Reynolds MD on 0 10/09/20 at 1535 RPT #:[id number] END OF REPORT 2020-09-20 09:52:00-00:00 [facility] ([facility]) EMERGENCY PROVIDER REPORT REPORT#:[id number] REPORT STATUS: Signed DATE:09/20/20 TIME: 951 PATIENT: PAWAN REYES UNIT #: [id number] ROOM/BED: [place] [address] AGE: 59 SEX: F PCP PHYS: Aston Escobar MD SERVICE AUTHOR: Yocasta Gonzalez MD * ALL edits or amendments must be made on the [employer]/computer document * HPI-Abd Pain F 40 and Over General Initial Greet Date/Time 09/20/20 0848 Presentation Chief Complaint Abdominal pain Sudden in Onset? No Free Text HPI Notes Free Text HPI Notes Patient had gastric bypass done in [place] 15 day s ago. Patient was discharged back home after 5 days. Patient states she had t he drains removed 2 days postop. Patient has now been at home rec uperating. Patient presents today with loss of appetite since procedure, severe nausea refractory to Zofran, severe nausea with intermittent vomiting. Decreased p.o . intake, loose bowel movements. Patient denies syncope. Patient denie s any pain in the abdominal area. Patient has no cardiopulmonary complaints. Patient has no fever or chills at home. Patient history obtained by stephanie mccarthy who has been checking on patient caring for her daily. She is having loos e bowel movements daily. This began immediately postop after the barium swallo w. Patient's previous surgeries include gastric byp ass, tubal ligation, cholecystectomy. Patient was discharged home on Keflex, P rotonix, Zofran and has been compliant with medications Risk-Abd Pain F 40 and Over )( Abdominal Aortic Aneurysm Risk factors review ed Review of Systems ROS Statements Complete sys rev neg except as marked. Focused Review of Systems GI Reports: Diarrhea, Nausea, Vomiting. Denies: Abd ominal pain. Free Text ROS Notes Free Text ROS Notes Constitutional: Patient denies chills, fever, we ight loss Eyes: denies visual loss/pain Respiratory: Patient denies cough, shortness of breath, difficulty breathing Cardiac: Patient has no chest pain, no syncope Skin: Patient denies rash, laceration Psych: Patient has no SI Musculoskeletal: Patient has no extremity pain, no joint pain Neurological: No syncope, no focal weakness : no hematuria no dysuria Heme: denies bleeding Allergy: denies anaphylaxis Past Medical History - Adult Stated Complaint BARIATRIC SURGERY LAST WEEK. Allergies Uncoded Allergies: SULFA DRUGS (UNKNOWN REACTION, CHILDHOOD REACTIO N 03/15/18) Home Medications Reported Medications ATORVASTATIN (LIPITOR) ESCITALOPRAM (LEXAPRO) 20 MG PO DAILY sitaGLIPtin/metFORMIN XR (JANUMET XR MG) 1 TAB PO BID LISINOPRIL (ZESTRIL) 10 MG PO DAILY ASPIRIN EC (ECOTRIN) 81 MG PO DAILY Discontinued Reported Medications ESCITALOPRAM (LEXAPRO) ATORVASTATIN (LIPITOR) 80 MG PO DAILY TOLTERODINE LA (DETROL LA) 4 MG PO DAILY ESCITALOPRAM (LEXAPRO) 10 MG PO DAILY TERBINAFINE (LamISIL) 250 MG PO DAILY MOMETASONE FUROATE (NASONEX 50 MCG/ACT NASAL) 1 SPRAY NASAL DAILY PRN PRN SINUS PROBLEMS PREGABALIN (LYRICA) 100 MG PO BID HYDROcodone/APAP (NORCO 10/325) 1 TAB PO Q6H PRN PRN pain Smoking status: Smoking status for patients 13 years old or old er: Current every day smoker Physical Exam Vital Signs Vital Signs First Documented: Result Date Time Pulse Ox 98 09/21 0748 B/P 128/81 09/20 0848 B/P Mean 96 09/20 0848 Temp 36.8 09/21 0748 Pulse 75 09/20 0848 Resp 18 09/21 0748 Last Documented: Result Date Time Pulse Ox 98 09/20 0848 B/P 128/81 09/20 0848 B/P Mean 96 09/20 0848 Temp 36.8 09/21 0748 Pulse 75 09/20 0848 Resp 18 09/20 0848 Review of Vital Signs Reviewed, Vital signs norm al Focused PE Abdomen/GI Abdomen/GI Atraumatic, Soft, Non-tender, No gua rding, No rebound Text/Dict Notes Positive bruising/hematoma abdominal wall, nonte nder, no evidence of wound dehiscence, no distention, n o signs of peritonitis or acute surgical abdomen at this time of evaluation Free Text PE Notes Free Text PE Notes General: no distress well-appearing, nontoxic Head: atraumatic, normocephalic EENT: PERRLA, EOMI neck: supple, from, no kernigs, no meningismus Respiratory: no shortness of breath, equal breat h sounds, no dyspnea, no respiratory distress CV:normal heart rate, regular rhythm, Skin: no rash, no petechiae Neuro: A/O x4 normal speech, cranial nerves lorena sly normal, nonfocal exam Psych: normal mood. normal affect Interpretation Diagnostics Lab Results Interpretation Results Laboratory Tests 09/20/20 0929: [Embedded Image Not Available] Laboratory Tests: 09/20 09/20 0947 0929 Chemistry Sodium (134.0 - 147.0 mmol/l) 144 Potassium (3.6 - 5.2 mmol/L) 3.3 L Chloride (98.0 - 107.0 mmol/l) 104 Carbon Dioxide (21.0 - 33.0 mmol/l) 23.3 Anion Gap (0 - 20) 20.0 BUN (7.0 - 18.0 mg/dl) 50 H Creatinine (0.60 - 1.30 mg/dL) 2.31 H Est GFR ( Amer) (97 - 109 mL/min) 28 L Est GFR (Non-Af Amer) (80 - 90 mL/min) 23 L Glucose (70.0 - 110.0 mg/dl) 131 H Calcium (8.0 - 10.5 mg/dl) 9.0 Total Bilirubin (0.0 - 1.0 mg/dl) 0.8 Direct Bilirubin (0.0 - 0.3 mg/dl) 0.2 AST (15 - 37 Units/L) 55 H ALT (12.0 - 78.0 Units/L) 99 H Total Alk Phosphatase (50.0 - 136.0 Units/L) 10 1 Troponin I (0.00 - 0.06 NG/ML) <0.02 Total Protein (6.4 - 8.2 gm/dL) 8.5 H Albumin (3.2 - 4.7 gm/dl) 4.3 Lipase (65.0 - 230.0 Units/L) 621 H Hematology WBC (4.5 - 11.0 K/mm3) 11.8 H RBC (3.80 - 5.20 M/mm3) 4.40 Hgb (12.0 - 16.0 gm/dL) 13.5 Hct (36.0 - 48.0 %) 40.9 MCV (82.0 - 99.0 UM3) 93.0 MCH (25.5 - 32.5 UUG) 30.7 MCHC (29.0 - 35.5 gm/dL) 33.0 RDW (11.5 - 15.0 %) 13.2 Plt Count (150 - 400 K/mm3) 333 MPV (7.4 - 10.4 fl) 9.3 Neut % (Auto) (49.0 - 76.0 %) 79.4 H Lymph % (Auto) (23.0 - 38.0 %) 13.7 L Crosby % (Auto) (1.0 - 10.0 %) 5.2 Eos % (Auto) (1.0 - 5.0 %) 0.6 L Baso % (Auto) (0.0 - 1.0 %) 0.7 Neut # (Auto) (2.4 - 6.3 K/mm3) 9.4 H Lymph # (Auto) (1.2 - 4.0 K/mm3) 1.6 Crosby # (Auto) (0.0 - 0.6 K/mm3) 0.6 Eos # (Auto) (0.0 - 0.7 K/MM3) 0.1 Baso # (Auto) (0.0 - 0.2 K/mm3) 0.1 Absolute Nucleated RBC (0.00 - 0.01 X10 3uL) 0. 00 Immature Gran % (0.0 - 0.4 %) 0.4 Nucleated RBC % (0.0 - 0.1 %) 0.0 Immature Gran # (0.00 - 0.07 x10 3/uL) 0.05 Urines Urine Color YELLOW Urine Appearance HAZY Urine pH (5.0 - 9.0) 5.0 Ur Specific [place] (1.000 - 1.030) 1.025 Urine Protein (NEGATIVE mg/dl) 100 H Urine Glucose (UA) (NORMAL mg/dl) NORMAL Urine Ketones (NEGATIVE mg/dl) 50 mg/dl H Urine Blood (NEGATIVE Emerson/micL) 10 Emerson/micL H Urine Nitrite (NEGATIVE) NEGATIVE Urine Bilirubin (NEGATIVE mg/dL) 1 mg/dL H Urine Urobilinogen (NORMAL mg/dl) NORMAL Ur Leukocyte Esterase (NEGATIVE Breanna/micL) 25 Le u/micL H Urine RBC (0 - 3 RBC/HPF) 1-3 Urine WBC (NONE WBC/HPF) 4-9 H Ur Epithelial Cells (0 - 3 EPI/HPF) 2-5 H Urine Bacteria (NONE) FEW Coarse Granular Casts (NEGATIVE /LPF) 0-1 Other Casts (0 - 1/LPF /LPF) WBC Recent Impressions: CAT SCAN - CT ABD PELVIS W/O CONT 09/20 1040 Report Impression - Status: SIGNED Entered: 09/20/2020 1049 IMPRESSION: 1. Surgical changes of the stomach are seen with no extraluminal contrast, surrounding inflammatory change, drain able collection, or bowel obstruction. 2. Other chronic changes as above. Impression By: [email or web address] - Ricardo wade M.D. Lab Imaging Statement Laboratory radiographic studies reviewed and con sidered in the medical decision-making. Point of Care Testing Pulse Oximetry Pulse Ox % 98 On: Room air Interpretation Interpreted by me, Pulse oximetr y normal Rhythm Strip Interpretation Time 1505 Rate 89 Rhythm Strip Interpretation Interpreted by me, Normal sinus rhythm ECG #1 Interpretation Text/Dict Note EKG shows normal sinus at a rate of 79, time is 935 a.m., Q wave in V1, T wave inversion V1, no STEMI, interpreted by EDMD Pulse ox 98% on room air normal Re-Evaluation MDM )( Re-Evaluation/Progress #1 Text/Dict Note Patient stating she is feels thirsty. Patient co nfirms previous cholecystectomy. Patient with stable vital signs here. Patient verbalized feeling slightly better than initial eval. Patie nt is more awake and overall looks better compared to initial eval. Patient p ain-free, no vomiting Time of Re-Eval 0956 )( Re-Eval Status Improved Tissue Perfusion Reassessment Patient tissue perfusion reassessment completed. Re-Evaluation/Progress #4+ Addl Re-Evaluation/Progress Text/Dict Note Sepsis reassessment completed and normal Time of Eval 1300 Sepsis Reassessment Date of exam: 09/20/20 Time of exam: 09 Vital signs: T , P bpm, BP , R / min. on Cardiac assessment: normal heart sounds Respiratory assessment: aerating well Capillary refill assess: brisk Peripheral pulse assess: Radial pulse: 4+ Skin color: normal color ED Course Medication(s) Ordered Medication(s) Ordered: Electrolytic, Caloric, And Suzan Sig/Shruti Start time Last Medication Dose Route Stop Time Status Admin Sodium Chloride 10 ML ASDIR PRN 09/20 0945 DC IV 10/20 0944 Gastrointestinal Drugs Sig/Shruti Start time Last Medication Dose Route Stop Time Status Admin Ondansetron HCl 4 MG Q6H PRN PRN 09/20 1245 DC IV 09/22 1017 Patient Discharge Departure Vital Signs/Condition Vital Signs First Documented: Result Date Time Pulse Ox 98 09/20 0848 B/P 128/81 09/20 0848 B/P Mean 96 09/20 0848 Temp 36.8 09/20 0848 Pulse 75 09/20 0848 Resp 18 09/20 0848 Last Documented: Result Date Time Pulse Ox 98 09/20 0848 B/P 128/81 09/20 0848 B/P Mean 96 09/20 0848 Temp 36.8 09/20 0848 Pulse 75 09/20 0848 Resp 18 09/20 0848 All vital signs available at the time of this en try have been reviewed. Clinical Impression Clinical Impression Primary Impression: ARF (acute renal failure) Secondary Impressions: Acute gastritis, Acute pa ncreatitis, Acute vomiting, Dehydration, Elevated lipase, Elevated liver enz ymes, Generalized weakness, Hyperglycemia, Hypokalemia, Nausea, Obesity Disposition Decision Admit )( Admission Accepts Yes )( Accepted Time 1229 )( Accepted Date 09/20/20 Discharge/Care Plan Counseled Regarding Diagnosi s, Lab results, Imaging studies, Need for admission Admit Note I have spoken with the patie nt and/or caregivers. I have explained the patient's condition, diagnoses and genaro atment plan based on the information available to me at this time. I have answered the patient's and/ or caregiver's questions and addressed any concerns. The patient and/or careg tasia have as good an understanding of the patient 's diagnosis, condition and treatment plan as can be expected at this point. The patient has been stabilized within the capability of the emergency department. The patient wi ll be transported for further care and management or will be moved to an observation or inpatient service. I have communicated with the staff or medical p ractitioner taking over this patient's care. Hold in ED Note I have spoken with the patie nt and/or caregivers. I have explained the patient's condition, diagnoses and genaro atment plan based on the information available to me at this time. I have answered the patient's and/ or caregiver's questions and addressed any concerns. The patient and/or careg tasia have as good an understanding of the patient 's diagnosis, condition and treatment plan as can be expected at this point. The patient has been stabilized within the capability of the emergency department. Although the emergency department has completed all appropriate management and is prepared to transp ort the patient to an observation or inpatient service, there are no a vailable beds. Therefore the patient will be placed in "ED Hold" status until such time as a bed becomes available. Critical Care Time Spent (minutes): 38 Services Performed Patient management by Ladarius sainz spent at bedside, Reviewing test results, Reviewing imaging, Discussing awilda ent care, Documentation in record, Time with fam/surrogate Separately billable procedures excluded from ladarius sage. Patient was critically ill due to: Acute renal failure CC Note 1 Total critical care time [] minutes. Total criti pia care time documented does not include time spent on separately billed proc edures or the services of residents, students, nurses or physician assista nts. I personally saw and examined the patient. I have reviewed all diagno stic interpretations and treatment plans as written. I was present for the garrison portions of any procedures performed and the inclusive time noted in any critical care statement. Critical care time includes patient m anagement by me, time spent at the patients bedside, time to review lab and imaging results, discussing patient care, documentation in the medical record, and time spent with the f amily or caregiver. Electronically Signed by Yocasta Gonzalez MD on 0 09/22/20 at 1751 RPT #:[id number] END OF REPORT 2018-03-01 07:36:00-00:00 Lisa Hampton BILATERAL DIGITAL SCREENING MAMMOGRAM WITH CAD: 03/01/2018 CLINICAL: Routine/Screen. Current study was evaluated with a Phlebotomy Support Tech d Detection (CAD) system. COMPARISON:Comparison is mad e to exam dated: 04/27/2017 mammogram - [facility]. TECHNIQUE: Mammographic view s were obtained using digital acquisition. Current study was also evaluated with a Computer Aided Detection (CAD) system. FINDINGS: There are scattered fibroglandular densities in both breasts. There is a benign intramamma ry node in both breasts. There is a stable right breast nodule. There also are benign calcifications in both breasts. No significant masses, calci fications, or other findings are seen in either breast. There has been no significant interval change. IMPRESSION: BENIGN RECOMMENDATION: There is no mammographic eleanor dence of malignancy. A 1 year screening mammogram is recommended.(03/02/2019) This exam was interpreted at [id number] for [facility]. Niki Mcneil M.D. dh/:03/02/2018 11:52:04 Sampler Ovens(s): RT Mohinder(R)(M), [facility] letter sent: BI-RADS 1/2 Mammogram BI-RADS: 2 Benign
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
[2022-09-09 11:17] VITALS: TEMP 98.1; O2SAT 100
[2022-09-09 11:18] VITALS: BP 131/65
== END 2022-09-09 11:05 | disposition home or self-care (01) ==
LOC: ER 09:52
DX: S16.1XXA Strain of muscle, fascia and tendon at neck level, initial encounter (principal); S20.212A Contusion of left front wall of thorax, initial encounter; Z88.2 Allergy status to sulfonamides
CPT/HCPCS: 70450; 71045; 72125; 99284